=== PATIENT | female | born 1950 | race Caucasian/White ===

== ENCOUNTER 2021-11-28 03:31 | Emergency (ER) | payer MEDICARE, OTHER, SELFPAY ==
[2021-11-28 03:41] VITALS: BP 159/100; PULSE 88; RESP 18; TEMP 36.1; O2SAT 98; BMI 26.9
[2021-11-28] MEDS: tetracaine 0.5% Op Soln 4 mL Btl 1 DROP EYE-LEFT (03:58)
[2021-11-28] MEDS: fluorescein 1 mg Strip EYE-LEFT (03:58)
[2021-11-28] MEDS: valACYclovir 1,000 mg Tablet 1000 MG PO (05:10)
[2021-11-28] MEDS: polymyxin-trimethoprim Op Soln 10 mL Btl 1 DROP EYE-LEFT (05:10)
[2021-11-28] MEDS: ketorolac 0.5% Op 5 mL Btl 1 DROP EYE-LEFT (05:10)
--- NOTE | 2021-11-28 06:17 | W.ED.EYEPROB ---
HPI - Eye Problem General: Chief complaint: Eye Problems Stated complaint: Lt eye Pain Time Seen by Provider: 11/28/21 03:43 History of Present Illness: HPI Narrative: 71-year-old female presents to the emergency department with a painful rash on her forehead involving her left eye that developed the day prior. She notes that the rash contained bubbles that seems to bust and dry up today. No symptoms before yesterday. She has pain to the eye itself. She has pain with eye movement. She does not have any vision change to that eye she says. chief complaint: eye pain Onset (ago): hour(s) Onset description: sudden and gradual Location: left eye Eye Symptoms: burning, redness and pain Place: home Mechanism: none Severity: moderate If Pain, Quality: burning and aching Associated symptoms: Denies cough, fever(s), headache(s), nausea, short of breath or vomiting Treatments Prior to Arrival: none Review of Systems Const: Denies: fever(s) GI: Denies: nausea or vomiting Neuro: Denies: headache(s) Physical Exam Const: EXAM LIMITATIONS: no altered mental status and no behavioral limitations GENERAL APPEARANCE: cooperative ORIENTATION/CONSCIOUSNESS: Yes awake HENMT: COMMON NORMALS: normocephalic, external ears normal and Normal external nose present HEAD & SCALP: normocephalic NOSE: Normal external nose present EXTERNAL EAR: Yes external ears normal MOUTH: Normal oral and palatal mucosa present Eye: COMMON NORMALS: Equal, round and reactive pupils present GENERAL EYE: normal light reflex SCLERA: scleral abnormal CORNEA: Yes fluorescein used PUPIL: Yes Equal, round and reactive pupils present DIRECT OPHTHALMOSCOPY: Yes normal light reflex Chest: COMMONS NORMALS: normal inspection of the chest Skin: NARRATIVE SKIN EXAM: Exam of the face reveals a vesicular, dry, rash to the left forehead. Course Vital Signs: Vital signs: Vital Signs Temperature 96.9 F L 11/28/21 03:41 Pulse Rate 88 11/28/21 03:41 Respiratory Rate 18 11/28/21 03:41 Blood Pressure 159/100 11/28/21 03:41 Pulse Oximetry 98 11/28/21 03:41 MDM - Eye Problem MDM Narrative: Medical decision making narrative: Examined patient after tetracaine with fluorescein. I do not see corneal dendritic lesions. There is mild conjunctival irritation, with no deep lesions. Her vision is intact at this point, and normal for her. We will place her on antivirals for zoster. Ketorolac drops as well as antibiotic drops, and very close outpatient ophthalmology follow-up Discharge Plan Discharge Patient Disposition: Home Clinical Impression: Herpes zoster ophthalmicus of left eye Condition: Stable Prescriptions: New valacyclovir 1 gram tablet 1,000 mg PO Q8H 7 Days Qty: 21 RF: 0 carbamazepine 200 mg tablet 200 mg PO Q12H Qty: 14 RF: 0 hydrocodone-acetaminophen 5-325 mg tablet 1 tab PO Q8H PRN (Reason: pain) Qty: 7 RF: 0 Discharge Orders: Discharge ED (Routine); Ordered 11/28/21 Ordered By: Ralph Torres Referrals: Damion Borjas MD [Physician] - 1-3 days Francesco Parr MD [Primary Care Provider] - Patient Instructions: Opioid Safety Activity Restrictions/Additional Instructions: Use the drops you were given in the ER to your left eye every 6 hours. Other medications as directed. Use the hydrocodone as needed for breakthrough pain. Return immediately for worsening vision changes to the left eye. Otherwise call the ophthalmology clinic listed above Tuesday morning for an appointment. Let them know you were seen here, and have shingles in the distribution of your eye. Coding Level of Care Code ED Food And Drug Inspector for Destiny Rascon
--- NOTE | 2021-11-28 08:36 | PC.NURSE ---
called in polytrim gtts to [facility] as the patient was not given the gtts upon discharge
== END 2021-11-28 05:13 | disposition home or self-care (01) ==
PROVIDERS: Emergency Provider Emergency Medicine; PCP Family Medicine
DX: B02.30 Zoster ocular disease, unspecified (principal)
CPT/HCPCS: 99283

== ENCOUNTER 2022-05-11 13:25 | Outpatient (CLI) | payer MEDICARE, OTHER, SELFPAY ==
--- NOTE | 2022-05-11 13:29 | CT_ITS ---
WS: [id number] CT NECK TECHNIQUE: Contrast-enhanced CT of the neck with coronal and sagittal reformatted images. CLINICAL INFORMATION: LEFT ANTERIOR CERVICAL LYMPHADENOPATHY COMPARISON: None. DLP: 340.[address] scans at [facility] use at least one of these dose optimization techniques: automated e xposure control; mA and/or kV adjustment per patient size (includes targeted exams where dose is matc hed to clinical indication); or iterative reconstruction. FINDINGS: Chronic bilateral chronic calcifications. Parotid nodule involving the inferior parotid gland with ca lcifications and surrounding induration in the area of palpable concern. Thickening of the overlying platysma. Parotid lesion measures approximately 11 x 13 mm. Recommend ENT consultation for resection. Differential considerations include benign and malignant parotid neoplasms. Normal submandibular glands. Normal posterior nasopharynx. Normal parapharyngeal fat. Normal vallecul a and piriform sinuses. No evidence of supraglottic or glottic mass. Subglottic airway is normal. [place] air cells well aerated. Mild spondylitic changes cervical spine. Carotid bulb calcification. CT/CT neck w con* [id number] IMPRESSION: 1. Parotid lesion involving the inferior LEFT parotid in the area of palpable concern with calcifications. Surrounding induration with thickening of the crystal cent platysma. Recommend ENT consultation for consideration of resection. Consi derations include benign and malignant parotid neoplasms. 2. Punctate calcifications both parotid glands. 3. Submandibular glands are normal. 4. No cervical lymphadenopathy.
[2022-05-11 14:14] LABS: Blood Urea Nitrogen 12 mg/dL (8-23)
[2022-05-11] MEDS: iohexol 350 mg/mL 100 mL Btl IV (14:32)
== END 2022-05-11 13:26 | disposition home or self-care (01) ==
PROVIDERS: PCP Family Medicine; Visit Provider Family Medicine
DX: R59.0 Localized enlarged lymph nodes (principal)
CPT/HCPCS: 70491; 82565; 84520

== ENCOUNTER → 2022-06-16 10:32 | Outpatient (BNVA) | payer MEDICARE, OTHER, SELFPAY | PROVIDERS: PCP Family Medicine; Visit Provider Family Medicine | DX: I50.9 Heart failure, unspecified (principal); I48.91 Unspecified atrial fibrillation | CPT/HCPCS: 80053; 83880; 85025 ==

== ENCOUNTER → 2022-06-24 14:13 | Outpatient (BNVA) | payer MEDICARE, OTHER, SELFPAY | PROVIDERS: PCP Family Medicine; Visit Provider Family Medicine | DX: I48.91 Unspecified atrial fibrillation (principal); I50.9 Heart failure, unspecified; R06.00 Dyspnea, unspecified; R07.9 Chest pain, unspecified | CPT/HCPCS: 80053; 83880; 85025; 85610 ==

== ENCOUNTER 2022-07-04 18:08 | Inpatient (IN) | payer MEDICARE, OTHER, SELFPAY ==
--- NOTE | 2022-07-04 18:09 | XRR_ITS ---
PROCEDURE INFORMATION: Exam: XR Chest Exam date and time: 07/04/2022 6:19 PM Age: 71 years old Clinical indication: Dyspnea; Patient HX: Sweating, dizzy, ; additional info: Hypotension TECHNIQUE: Imaging protocol: Radiologic exam of the chest. Views: 1 view. COMPARISON: CR Chest 2 views* [id number] 12/18/2018 3:57 PM FINDINGS: Lungs: Unremarkable. No consolidation. Pleural spaces: Unremarkable. No pleural effusion. No pneumothorax. Heart/Mediastinum: Cardiomegaly. Bones/joints: Unremarkable. XR/XR chest 1V portable [id number] IMPRESSION: Cardiomegaly, lungs are clear.
--- NOTE | 2022-07-04 18:19 | ECG_ITS ---
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 Measurements Intervals [place] Rate: 122 P: AL: QRS: 6 QRSD: 93 T: 113 QT: 341 QTc: 487 Interpretive Statements ATRIAL FIBRILLATION WITH RAPID VENTRICULAR RESPONSE ST DEVIATION AND MODERATE T-WAVE ABNORMALITY, CONSIDER LATERAL ISCHEMIA [-0.1+ mV T-WAVE IN I/aVL/V5/V6] No previous ECG available for comparison Electronically Signed On 07-05-2022 7:24:41 CDT by Scotty Mario M.D. [id number]
[2022-07-04 18:21] VITALS: BP 91/54; PULSE 122; RESP 18; O2SAT 92
[2022-07-04 18:30] LABS: Basophils # 0.1 10^3/uL (0.0-0.1); Basophils % 0.5 %; Eosinophils # 0.1 10^3/uL (0.0-0.8); Eosinophils % 0.5 %; Hematocrit 52.5 % (37.0-47.0); Lymphocytes # 1.3 10^3/uL (0.8-4.8); Lymphocytes % 8.3 %; Mean Corpuscular HGB Conc 32.4 g/dL (30.0-36.0); Mean Corpuscular Hemoglobin 30.9 pg (28.0-34.0); Mean Corpuscular Volume 95.5 fl (81-99); Mean Platelet Volume 11.2 fL (7.4-10.4); Monocytes # 1.3 10^3/uL (0.2-0.9); Monocytes % 8.2 %; Neutrophils # 12.49 10^3/uL (1.8-7.7); Neutrophils % 81.2 %; Nucleated Red Blood Cells % 0 %; Platelet Count 257 10^3/cmm (130-400); Red Cell Distribution Width 14.5 % (12.1-15.1); White Blood Count 15.4 10^3/uL (4.0-10.0)
[2022-07-04] MEDS: sodium chloride 0.9% 500 ML 999 ML IV ×3 (18:40→20:13)
[2022-07-04] MEDS: ondansetron 2 mg/ML SDV 2 mL 4 MG IVP ×2 (18:40→19:55)
[2022-07-04 18:46] VITALS: BP 110/87; PULSE 96; RESP 21; O2SAT 98
--- NOTE | 2022-07-04 19:15 | CTR_ITS ---
PROCEDURE INFORMATION: Exam: CT Abdomen And Pelvis With Contrast Exam date and time: 07/04/2022 7:42 PM Age: 71 years old Clinical indication: Pain and abnormal findings; Abnormal lab test; Nausea and vomiting; Abdominal pain; Generalized; Prior surgery; Surgery type: Hernia repair. Csection; Patient HX: Abd pain with n/v/d and elevated wbc. ; Additional info: Abd pain, diarrhea, leukocytosis TECHNIQUE: Imaging protocol: Computed tomography of the abdomen and pelvis with contrast. Radiation optimization: All CT scans at this facility use at least one of these dose optimization techniques: automated exposure control; mA and/or kV adjustment per patient size (includes targeted exams where dose is matched to clinical indication); or iterative reconstruction. Contrast material: OMNI 350; Contrast volume: 80 ml; Contrast route: INTRAVENOUS (IV); COMPARISON: US Abdomen* [id number] 12/07/2016 7:06 AM RADIATION DOSE METRICS: Total DLP (mGy-cm): 404.06 FINDINGS: Lungs: Emphysematous changes. Heart: Cardiomegaly. Coronary artery atherosclerotic calcifications. Diaphragm: Small hiatal hernia. Liver: Normal. No mass. Gallbladder and bile ducts: Normal. No calcified stones. No ductal dilation. Pancreas: Normal. No ductal dilation. Spleen: Normal. No splenomegaly. Adrenal glands: Normal. No mass. Kidneys and ureters: Normal. No hydronephrosis. Stomach and bowel: Prominent fluid throughout the small bowel and colon with mucosal enhancement suggestive of an enterocolitis. Appendix: No evidence of appendicitis. Intraperitoneal space: Unremarkable. No free air. No significant fluid collection. Vasculature: Large amount of nearly occlusive atherosclerotic calcified plaque seen in the distal abdominal aorta with contrast seen distally. Lymph nodes: Unremarkable. No enlarged lymph nodes. Urinary bladder: Urinary bladder wall thickening may be due to nondistention, a cystitis may also be a consideration depending on the clinical scenario. Reproductive: 3 cm apparent cystic fibroid in the uterine fundus. Bones/joints: Unremarkable. No acute fracture. Soft tissues: Unremarkable. Other findings: Small amount nonspecific fluid in the pelvis. CT/CT abdomen pelvis w con* [id number] IMPRESSION: 1. Prominent fluid throughout the small bowel and colon with mucosal enhancement suggestive of an enterocolitis. 2. 3 cm apparent cystic fibroid in the uterine fundus. 3. Small amount nonspecific fluid in the pelvis. 4. Cardiomegaly. 5. Emphysematous changes. 6. Coronary artery atherosclerotic calcifications. 7. Small hiatal hernia. 8. Urinary bladder wall thickening may be due to nondistention, a cystitis may also be a consideration depending on the clinical scenario. 9. Large amount of nearly occlusive atherosclerotic calcified plaque seen in the distal abdominal aorta with contrast seen distally.
--- NOTE | 2022-07-04 19:27 | W.ED.SYNCOPE ---
HPI - Syncope General: Stated Complaint: Near SYNCOPE; AFIB WITH RVR Time Seen by Provider: 07/04/22 18:18 Source: patient History of Present Illness: 71-year-old female with a history of atrial fibrillation. She presents with sudden onset of nausea, diaphoresis, and diarrhea. She got dizzy, and was presyncopal as well. She never passed out. She did not hit her head. Dizziness is resolved. She still complains of abdominal cramping and pain. No fever. No vomiting. She was found by EMS to have a heart rate in the 140s to 150s. She denies chest pain MD complaint: felt faint and almost passed out Onset (ago): minute(s) -: minutes(s) Prodromal symptoms: lightheaded, heart racing and nausea/vomiting Associated symptoms: Reports abdominal pain, lightheadedness, nausea and short of breath; Deny chest pain, fever(s) or headache(s) Review of Systems Const: Denies: fever(s) Eyes: Denies: change in vision or blurry vision Card: Reports: palpitations, irregular heart rhythm and lightheadedness; Denies: chest pain GI: Reports: abdominal pain, nausea and diarrhea (Significant); Denies: vomiting or hematochezia : Denies: flank pain Skin/Breast: Denies: rash Neuro: Reports: weakness in extremities (Generalized) and dizziness; Denies: headache(s) or numbness in extremities [facility] ED PFSH: Medical History Atrial fibrillation Congestive heart failure Dyspnea Physical Exam Const: COMMON NORMALS: alert GENERAL APPEARANCE: cooperative, in distress, ill appearing, frail appearing and diaphoretic HENMT: COMMON NORMALS: normocephalic and atraumatic HEAD & SCALP: normocephalic and atraumatic FACE & SINUS: normal facial exam and sinuses nontender Eye: COMMON NORMALS: Equal, round and reactive pupils present and EOMs intact bilaterally PUPIL: Yes Equal, round and reactive pupils present Neck/C-Spine: GENERAL: Yes trachea midline Chest: CHEST: Yes Symmetrical chest wall rise Resp: COMMON NORMALS: clear to auscultation bilaterally EFFORT & INSPECTION: Yes tachypneic AUSCULTATION: clear to auscultation bilaterally Cardio: RATE: tachycardic RHYTHM: abnormal rhythm irregularly irregular GI: INSPECTION: Yes normal to inspection PALPATION: Yes Tenderness to palpation present (GI) (diffuse) and Yes Guarding due to palpation present (GI) : COMMON NORMALS: Yes no CVA tenderness BLADDER/KIDNEY EXAM: Yes no CVA tenderness Back/Pelvis: COMMON NORMALS: no CVA tenderness Extremity: COMMON NORMALS: no pedal edema Neuro: YEISON COMA SCALE: document GCS findings Yeison coma scale eye opening: Spontaneous Yeison coma scale verbal response: Orientated Yeison coma scale motor response: Obey commands [place] coma scale total score: 15 SENSORIUM/ORIENTATION: Yes alert CRANIAL NERVES: Yes CN normal except as noted SPEECH: speech normal Skin: COMMON NORMALS: no rashes or lesions noted GENERAL SKIN EXAM: no rashes or lesions noted Course Vital Signs: Vital signs: Vital Signs Pulse Rate 104 H 07/04/22 21:00 Respiratory Rate 22 H 07/04/22 21:00 Blood Pressure 131/89 07/04/22 21:00 Pulse Oximetry 94 07/04/22 21:00 Oxygen Delivery Me thod 07/04/22 21:00 Oxygen Flow Rate 3 07/04/22 21:00 MDM - Syncope Medical Decision Making 71-year-old female with a history of atrial fibrillation. She is presenting hypotensive, tachycardic, and appearing unwell. She has a history of CHF. Heart rates initially were in the 140s, blood pressure was near 70 systolic. This improved quickly. She was given 500 cc of fluid, followed by another 2 500 cc boluses for a total of 1.5 L. Her white blood cell count is 15. Hemoglobin 17. Potassium was 3.3. Bicarbonate was down to 15. Chest x-ray is negative for infiltrate or failure. Abdominal CT shows prominent fluid in the small bowel consistent with enterocolitis, likely the cause of her pain, diarrhea, and volume loss. Heart rate decreased to around 100 following 1.5 L bolus. Again full sepsis bolus was not given due to history of heart failure. She has a lactate of 3.3. Blood pressure improved to currently 120/83. She will be admitted. Hospitalist is aware of Lab Data : 07/04/22 18:20 07/04/22 19:05 Radiology Impressions Chest X-Ray 07/04/22 18:09 IMPRESSION: Cardiomegaly, lungs are clear. Abdomen/Pelvis CT 07/04/22 19:15 IMPRESSION: 1. Prominent fluid throughout the small bowel and colon with mucosal enhancement suggestive of an enterocolitis. 2. 3 cm apparent cystic fibroid in the uterine fundus. 3. Small amount nonspecific fluid in the pelvis. 4. Cardiomegaly. 5. Emphysematous changes. 6. Coronary artery atherosclerotic calcifications. 7. Small hiatal hernia. 8. Urinary bladder wall thickening may be due to nondistention, a cystitis may also be a consideration depending on the clinical scenario. 9. Large amount of nearly occlusive atherosclerotic calcified plaque seen in the distal abdominal aorta with contrast seen distally. Laboratory Results WBC 15.4 10^3/uL (4.0-10.0) H 07/04/22 18:20 RBC 5.50 10^6/uL (4.1-5.3) H 07/04/22 18:20 Hgb 17.0 g/dL (11.5-15.3) H 07/04/22 18:20 Hct 52.5 % (37.0-47.0) H 07/04/22 18:20 MCV 95.5 fl (81-99) 07/04/22 18:20 MCH 30.9 pg (28.0-34.0) 07/04/22 18:20 MCHC 32.4 g/dL (30.0-36.0) 07/04/22 18:20 RDW 14.5 % (12.1-15.1) 07/04/22 18:20 Plt Count 257 10^3/cmm (130-400) 07/04/22 18:20 MPV 11.2 fL (7.4-10.4) H 07/04/22 18:20 Neut % (Auto) 81.2 % 07/04/22 18:20 Lymph % (Auto) 8.3 % 07/04/22 18:20 [place] % (Auto) 8.2 % 07/04/22 18:20 Eos % (Auto) 0.5 % 07/04/22 18:20 Baso % (Auto) 0.5 % 07/04/22 18:20 Neut # (Auto) 12.49 10^3/uL (1.8-7.7) H 07/04/22 18:20 Lymph # (Auto) 1.3 10^3/uL (0.8-4.8) 07/04/22 18:20 [place]ill # (Auto) 1.3 10^3/uL (0.2-0.9) H 07/04/22 18:20 Eos # (Auto) 0.1 10^3/uL (0.0-0.8) 07/04/22 18:20 Baso # (Auto) 0.1 10^3/uL (0.0-0.1) 07/04/22 18:20 Nucleated RBC % (auto) 0 % 07/04/22 18:20 Nucleated RBCs # 0.0 /100WBC 07/04/22 18:20 PT 29.60 SECONDS (12.1-14.9) H 07/04/22 19:05 INR 2.78 (0.8-1.2) H 07/04/22 19:05 Sodium 137 mmol/L (136-145) 07/04/22 19:05 Potassium 3.3 mmol/L (3.5-5.1) L 07/04/22 19:05 Chloride 111 mmol/L (98-107) H 07/04/22 19:05 Carbon Dioxide 15 mmol/L (22-29) L 07/04/22 19:05 Anion Gap 14.3 (5-19) 07/04/22 19:05 BUN 14 mg/dL (8-23) 07/04/22 19:05 Creatinine 1.0 mg/dL (0.5-0.9) H 07/04/22 19:05 GFR Calculation Not Reportable 07/04/22 19:05 Glucose 184 mg/dL (65-115) H 07/04/22 19:05 Calculated Osmolality 289 mOsm/kg (285-295) 07/04/22 19:05 Lactic Acid 3.2 mmol/L (0.5-2.2) H 07/04/22 19:05 Calcium 6.1 mg/dL (8.5-10.5) L 07/04/22 19:05 Magnesium 1.2 mg/dL (1.7-2.3) L 07/04/22 19:05 Total Bilirubin 0.5 mg/dL (0.15-1.2) 07/04/22 19:05 AST 15 U/L (0-32) 07/04/22 19:05 ALT 11 U/L (0-33) 07/04/22 19:05 Alkaline Phosphatase 63 U/L (35-105) 07/04/22 19:05 Troponin T Baseline 11 ng/L (0-10) H 07/04/22 19:05 Troponin T 120 Minute 12.19 ng/L (0-10) H 07/04/22 20:28 Delta Troponin T 1.19 ABS# (0-10) 07/04/22 20:28 NT-Pro-B Natriuret Pep 5023 pg/mL (0-125) H 07/04/22 19:05 Total Protein 4.5 g/dL (6.6-8.7) L 07/04/22 19:05 Albumin 2.5 g/dL (3.5-5.2) L 07/04/22 19:05 Globulin 2.0 g/dL (1.3-4.6) 07/04/22 19:05 Lipase 29 U/L (13-60) 07/04/22 19:05 Urine Color Yellow (Yellow) 07/04/22 20:06 Urine Appearance Cloudy (CLEAR) 07/04/22 20:06 Urine pH 5 (5-7) 07/04/22 20:06 Ur Specific [place] 1.005 (1.005-1.030) 07/04/22 20:06 Urine Protein 2+ (Negative) H 07/04/22 20:06 Urine Glucose (UA) Trace (Normal) H 07/04/22 20:06 Urine Ketones Negative (Negative) 07/04/22 20:06 Urine Blood 2+ (Negative) H 07/04/22 20:06 Urine Nitrate Negative (Negative) 07/04/22 20:06 Urine Bilirubin Neg (Negative) 07/04/22 20:06 Urine Urobilinogen Norm mg/dL (Negative) 07/04/22 20:06 Ur Leukocyte Esterase 1+ (Negative) H 07/04/22 20:06 Urine RBC 0-4 /hpf (0-2) H 07/04/22 20:06 Urine WBC 15-25 /hpf (0-5) H 07/04/22 20:06 Ur Squamous Epith Cells 0-4 /hpf (0-5) H 07/04/22 20:06 Amorphous Sediment Not Reportable 07/04/22 20:06 Urine Bacteria 1+ /hpf (NONE) H 07/04/22 20:06 Hyaline Casts 5-10 /lpf H 07/04/22 20:06 Urine Mucus Trace /hpf 07/04/22 20:06 Urine Yeast Trace /hpf 07/04/22 20:06 Coronavirus 229E (PCR) Not detected (NOT DETECT) 07/04/22 19:31 SARS-CoV-2 (PCR) Not detected (NOT DETECT) 07/04/22 19:31 Discharge Plan Discharge Patient Disposition: Admitted As Inpatient Clinical Impression: Atrial fibrillation with RVR, Acute dehydration, Enteritis Condition: Serious Prescriptions: No Action furosemide 40 mg tablet 40 mg PO Q12H benazepril 10 mg tablet 10 mg PO BID atorvastatin 20 mg tablet 20 mg PO DAILY potassium chloride 10 mEq tablet extended release 10 meq PO BID warfarin 2 mg tablet 2 mg PO BID metoprolol succinate 100 mg tablet extended release 24 hr 100 mg PO BID Qty: 90 3RF Referrals: Francesco Parr MD [Primary Care Provider] - Coding Level of Care Code ED Social Service Liaison for Destiny Rascon
[2022-07-04 19:35] LABS: INR 2.78 (0.8-1.2)
[2022-07-04 19:37] VITALS: BP 128/65; PULSE 102; RESP 15; O2SAT 97
[2022-07-04 19:44] LABS: Troponin(5th) Baseline 11 ng/L (0-10)
[2022-07-04] MEDS: iohexol 350 mg/mL 100 mL Btl 80 ML IV (19:46)
[2022-07-04 19:54] LABS: Lactic Sepsis W/Reflex 3.2 mmol/L (0.5-2.2)
[2022-07-04 20:00] VITALS: BP 139/78; PULSE 102; RESP 18; O2SAT 98
[2022-07-04 20:01] LABS: Alanine Aminotransferase 11 U/L (0-33); Albumin Level 2.5 g/dL (3.5-5.2); Alkaline Phosphatase 63 U/L (35-105); Anion Gap 14.3 (5-19); Aspartate Amino Transferase 15 U/L (0-32); Blood Urea Nitrogen 14 mg/dL (8-23); Calcium 6.1 mg/dL (8.5-10.5); Carbon Dioxide 15 mmol/L (22-29); Chloride 111 mmol/L (98-107); Glucose 184 mg/dL (65-115); Lipase 29 U/L (13-60); Magnesium 1.2 mg/dL (1.7-2.3); NT Pro B Type Natriuretic Pept 5023 pg/mL (0-125); Osmolality Calculated 289 mOsm/kg (285-295); Potassium 3.3 mmol/L (3.5-5.1); Sodium 137 mmol/L (136-145); Total Bilirubin 0.5 mg/dL (0.15-1.2); Total Protein 4.5 g/dL (6.6-8.7)
--- NOTE | 2022-07-04 20:10 | ECG_ITS ---
[facility] Test Date: 2022-07-04 Pat Name: Christiane Winkler Department: Room: Gender: Female Enterostomal Therapy Nurse: : 1950 Requested By: Gissel Bhatia Order Number: [id number] Benton MD: Scotty Mario M.D. Measurements Intervals [place] Rate: 119 P: [place]: QRS: 14 QRSD: 99 T: -43 QT: 356 QTc: 502 Interpretive Statements ATRIAL FIBRILLATION WITH RAPID VENTRICULAR RESPONSE NONSPECIFIC ST & T-WAVE ABNORMALITY ABNORMAL RHYTHM ECG Compared to ECG 07/04/2022 18:19:41 Possible ischemia no longer present T-wave abnormality still present Electronically Signed On 07-05-2022 7:27:50 CDT by Scotty Mario M.D. [id number]
[2022-07-04] MEDS: metroNIDAZOLE IV 500 MG/100 ML PREMIX 100 MG IV (20:30)
[2022-07-04 20:59] LABS: Reflex Lactate Order REFLEX LACTIC ORDERD
[2022-07-04 21:00] VITALS: BP 131/89; PULSE 104; RESP 22; O2SAT 94
[2022-07-04 21:00] LABS: Add Urine Microscopic? YES; Bilirubin Urine Neg (Negative); Blood Urine 2+ (Negative); Glucose Urine UA Trace (Normal); Ketones Urine Negative (Negative); Leukocyte Esterase Urine 1+ (Negative); Nitrate Urine Negative (Negative); Protein Urine 2+ (Negative); Specific Gravity, Urine 1.005 (1.005-1.030); Urine Appearance Cloudy (CLEAR); Urine Color Yellow (Yellow); Urobilinogen Urine Norm (Negative); pH Urine 5 (5-7)
[2022-07-04 21:01] LABS: Bacteria Urine 1+ /hpf; Mucus Urine TRACE /hpf; RBC Urine 0-4 /hpf (0-2); Squamous Epithelial Cell Urine 0-4 /hpf (0-5); WBC Urine 15-25 /hpf (0-5)
[2022-07-04 21:02] LABS: Add Urine Culture? Yes
[2022-07-04 21:03] LABS: Troponin 5 2HR 12.19 ng/L (0-10)
[2022-07-04 21:06] LABS: Troponin 5 2HR Delta 1.19 ABS# (0-10)
[2022-07-04] MEDS: cefTRIAXone 1,000 MG in sodium chloride 0.9% (plus) 50 ML 100 MG IV (21:30)
[2022-07-04 21:33] LABS: Adenovirus Not Detected (NOT DETECT); Chlamydia Pneumoniae Not Detected (NOT DETECT); Coronavirus 229E,HKU1,NL63,OC4 Not Detected (NOT DETECT); Human Metapneumovirus Not Detected (NOT DETECT); Human Rhinovirus/Enterovirus Not Detected (NOT DETECT); Influenza A Not Detected (NOT DETECT); Influenza A H1 Not Detected (NOT DETECT); Influenza A H1-2009 Not Detected (NOT DETECT); Influenza A H3 Not Detected (NOT DETECT); Influenza B Not Detected (NOT DETECT); Mycoplasma Pneumoniae Not Detected (NOT DETECT); Parainfluenza Virus Type 1 Not Detected (NOT DETECT); Parainfluenza Virus Type 2 Not Detected (NOT DETECT); Parainfluenza Virus Type 3 Not Detected (NOT DETECT); Parainfluenza Virus Type 4 Not Detected (NOT DETECT); Respiratory Syncytial Virus A Not Detected (NOT DETECT); Respiratory Syncytial Virus B Not Detected (NOT DETECT); SARS-COV-2 Not Detected (NOT DETECT)
[2022-07-04 22:31] LABS: Lactic Acid level (Lactate) 1.8 mmol/L (0.5-2.2)
--- NOTE | 2022-07-04 22:33 | USR_ITS ---
PROCEDURE INFORMATION: Exam: US Duplex Scan of Aorta, Inferior Vena Cava, Iliac Vasculature, or Bypass Grafts, Complete Exam date and time: 07/04/2022 11:00 PM Age: 71 years old Clinical indication: Abnormal findings; Abnormal imaging test; Exam and body structure: CT / abdomen; Additional info: Plaque, decreased flow? TECHNIQUE: Imaging protocol: Real-time duplex ultrasound scan of the Aorta, IVC, iliac vasculature, or bypass grafts in the abdomen with color Doppler flow and spectral waveform analysis with image documentation. Complete exam. COMPARISON: US gall bladder [id number] 07/04/2022 10:51 PM FINDINGS: Aorta: Proximal abdominal aorta not visualized . Atherosclerotic plaque in the mid to distal abdominal aorta with color blood flow present. Plaque limits evaluation of velocity measurements. US/CV duplex aorta [id number] IMPRESSION: 1. Proximal abdominal aorta not visualized . 2. Atherosclerotic plaque in the mid to distal abdominal aorta with color blood flow present. Plaque limits evaluation of velocity measurements.
--- NOTE | 2022-07-04 22:33 | USR_ITS ---
PROCEDURE INFORMATION: Exam: US Abdomen, Limited; Right Upper Quadrant Exam date and time: 07/04/2022 10:51 PM Age: 71 years old Clinical indication: Abdominal pain TECHNIQUE: Imaging protocol: Real time ultrasound of the abdomen with image documentation. Limited exam focused on the right upper quadrant. COMPARISON: CT abdomen pelvis w con* [id number] 07/04/2022 7:42 PM FINDINGS: Liver: Normal. No masses. Gallbladder: Gallbladder wall is mildly prominent at 4.1 mm without cholelithiasis or findings to suggest cholecystitis by ultrasound alone. If clinically indicated a nuclear medicine HIDA scan could further evaluate the gallbladder if concern for cholecystitis remains. Biliary ducts: Normal. No stones. No dilation. Pancreas: Visualized pancreas is unremarkable. Right kidney: Normal. No mass. No hydronephrosis. US/US gall bladder [id number] IMPRESSION: Gallbladder wall is mildly prominent at 4.1 mm without cholelithiasis or findings to suggest cholecystitis by ultrasound alone. If clinically indicated a nuclear medicine HIDA scan could further evaluate the gallbladder if concern for cholecystitis remains.
--- NOTE | 2022-07-04 22:35 | USR_ITS ---
PROCEDURE INFORMATION: Exam: US Duplex Bilateral Extracranial Arteries, Carotid Arteries Exam date and time: 07/04/2022 11:24 PM Age: 71 years old Clinical indication: Syncope and collapse TECHNIQUE: Imaging protocol: Real-time Duplex ultrasound scan of the bilateral carotid and vertebral arteries combining jacobsen scale, color Doppler and spectral waveform analysis. Bilateral exam. Exam focused on the carotid arteries. COMPARISON: CT neck w con* [id number] 05/11/2022 2:09 PM FINDINGS: Scattered areas of atherosclerotic plaque throughout the carotid arteries. Right common carotid artery: No occlusion or stenosis. Waveforms are normal. Right internal carotid artery: Right internal carotid artery peak systolic velocity of 123 cm/s consistent with nearly 50-75% stenosis. Right ICA/CCA ratio: Within normal limits. Right external carotid artery: No stenosis in the origin. Right vertebral artery: Unremarkable. Antegrade flow. Left common carotid artery: . No occlusion or stenosis. Waveforms are normal. Left internal carotid artery: Left internal carotid artery peak systolic velocity of 108 cm/s consistent with less than 50% stenosis. Left ICA/CCA ratio: Within normal limits. Left external carotid artery: No stenosis in the origin. Left vertebral artery: Unremarkable. Antegrade flow. US/CV carotid duplex BI* [id number] IMPRESSION: 1. Right internal carotid artery peak systolic velocity of 123 cm/s consistent with nearly 50-75% stenosis. 2. Left internal carotid artery peak systolic velocity of 108 cm/s consistent with less than 50% stenosis. 3. Scattered areas of atherosclerotic plaque throughout the carotid arteries. REFERENCES: SRU CRITERIA. The degree of internal carotid artery stenosis is based on criteria defined by the Society of Radiologists in Ultrasound (SRU). Normal is no stenosis. Mild is less than 50% stenosis. Moderate is 50-69% stenosis. Severe is greater than 69% stenosis to near occlusion. Near occlusion is a markedly narrowed lumen. Total occlusion is no detectable patent lumen.
--- NOTE | 2022-07-04 22:35 | USCV_ITS ---
Peterson Christiane Age: 71 Gender: F : 1950 Exam Date: 07/04/2022 23:58 Ordering Phys: Nayan Victoria MD Technologist: Jose E Florez Exam Location: [facility] [place] Indication: syncope BP: 147 / 94 HR: 100 Rhythm: Sinus Technical Quality: Poor MEASUREMENTS (Male / Female) Normal Values 2D ECHO LV Diastolic Diameter PLAX 4.7 cm 4.2 - 5.9 / 3.9 - 5.3 cm LV Systolic Diameter PLAX 4.8 cm IVS Diastolic Thickness 1.3 cm 0.6 - 1.0 / 0.6 - 0.9 cm IVS Systolic Thickness 1.1 cm LVPW Diastolic Thickness 1.9 cm 0.6 - 1.0 / 0.6 - 0.9 cm LVPW Systolic Thickness 1.9 cm LV Ejection Fraction 2D Teich 4.9 % LV Ejection Fraction MOD 2C 60.8 % LV Ejection Fraction 2C AL 60.8 % LA Diameter 5.1 cm LA Width 4.7 cm LA Height 6.4 cm RA Width 4.7 cm RA Height 5.9 cm IVC Diameter 1.6 cm M-MODE Aortic Annulus Diameter 2.3 cm LA Ao Ratio MM 1.9 MV E Point Septal Separation 1.6 cm DOPPLER AV Peak Velocity 136.8 cm/s LVOT Peak Velocity 63.3 cm/s MV Area PHT 5.0 cm squared Mitral E to A Ratio 2.5 MV E' Velocity 53.5 cm/s Mitral E to MV E' Ratio 11.3 Mitral E to LV E' Lateral Ratio 8.9 Mitral E to LV E' Septal Ratio 15.7 Right Atrial Pressure 8.0 mmHg PV Peak Velocity 69.0 cm/s FINDINGS Left Ventricle The ventricle is poorly seen. The best view is the apical 2 chamber view. There appears to be global hypokinesis to a mild degree. A rough estimate of the ejection fraction would be 40%. Grade 1 diastolic dysfunction. No obvious wall motion disturbances. Right Ventricle Poorly seen but appears to be normal in size and function. Right Atrium Normal right atrial size. Left Atrium Mildly increased left atrial size. Mitral Valve Poorly seen. At least mild mitral regurgitation. No obvious mitral stenosis. Aortic Valve The valve is not well seen. No obvious regurgitation or stenosis. Tricuspid Valve Poorly seen Pulmonic Valve Poorly seen Pericardium Normal pericardium without effusion. Aorta Normal ascending aorta dimension. IVC Not well seen but the inferior vena cava appears to collapse with respiration. CONCLUSIONS The ventricle is poorly seen. The best view is the apical 2 chamber view. There appears to be global hypokinesis to a mild degree. A rough estimate of the ejection fraction would be 40%. Grade 1 diastolic dysfunction. No obvious wall motion disturbances. Mildly increased left atrial size. Poorly seen. At least mild mitral regurgitation. No obvious mitral stenosis. From the previous echo dated 01/04/2019, the wall motion disturbances noted at that time are not seen today. Additionally the severe mitral and tricuspid regurgitation seen previously are not seen on today's study. An inadequate tricuspid envelope does not allow for evaluation of pulmonary hypertension. The ejection fraction is essentially unchanged. Dr. Scotty Mario MD (Electronically Signed) Final Date: 05 July 2022 07:23 S
--- NOTE | 2022-07-04 22:37 | P.HP_ITS ---
Providers/Chief Complaint Primary Care Provider: Francesco Parr MD Chief Complaint: SYNCOPE; AFIB WITH RVR History of Present Illness Christiane Winkler is a 71 year old female with a past medical history of hypertension, atrial fibrillation on Coumadin, who presents [facility] due to a constellation of symptoms. He tells me that she has been seeing Dr. Kitchen, she has been complaining of increased shortness of breath, and some intermittent chest pain, she was seeing Dr. Kitchen, who ordered a cardiac echo and a stress test. Her dose of Lasix also reduced, today, she has been having bouts of nausea, diarrhea with diaphoresis and chills. She has been having episodes with dizziness, lightheadedness especially when getting up and walking. This afternoon, when she got off the commode, she took about 15 steps, she felt lightheaded and dizzy, she thinks she passed out as she did not remember the episode, but her tells me that she felt lightheaded, so she got to her knees, she never fell down, no head trauma, no loss of consciousness, but she was a bit difficult to arouse, no seizure-like episodes no strokelike symptoms. No recent antibiotic use, no history of food poisoning, the diarrhea has clear, no bloody or black stools. He also has been reporting intermittent abdominal pain, around the umbilicus, she recently had right inguinal hernia surgery which was thought to be very unusual given her age and that she is a female. When EMS was called out to patient's home, she was found to have A. fib with RVR with heart rates in the 140s to 150s, she is given 1.5 L bolus, since then, her heart rates have come down, to the 100s to 120s, she feels better, but is requiring 3 L, no shortness of breath, no chest pain, no abdominal pain, no fevers, still complaining some chills Review of Systems Const: Reports: chills, body aches, fatigue and malaise Card: Denies: chest pain Resp: Denies: dyspnea or non-productive cough GI: Reports: abdominal pain, nausea and diarrhea : Denies: flank pain, difficulty voiding, dysuria or urinary frequency Medications/Allergies Home Medications Medication Instructions Recorded Confirmed Last Taken Type atorvastatin 20 mg tablet 20 mg PO DAILY 06/16/22 07/04/22 07/03/22 History benazepril 10 mg tablet 10 mg PO BID 06/16/22 07/04/22 07/04/22 History furosemide 40 mg tablet 40 mg PO Q12H 06/16/22 07/04/22 07/04/22 History potassium chloride 10 mEq 10 meq PO BID 06/16/22 07/04/22 07/04/22 History tablet,extended release metoprolol succinate 100 mg 100 mg PO BID #90 tabs 06/21/22 07/04/22 07/04/22 Rx tablet,extended release 24 hr warfarin 2 mg tablet 2 mg PO BID 06/24/22 07/04/22 07/04/22 History Allergies Allergy/AdvReac Type Severity Reaction Status Date / Time Sulfa (Sulfonamide Allergy Unknown Verified 11/28/21 03:41 Antibiotics) PFSH Acute PFSH: Medical History (Updated 07/04/22 @ 22:43 by Nayan Victoria MD) Atrial fibrillation Congestive heart failure Dyspnea Surgical History (Updated 07/04/22 @ 22:42 by Nayan Victoria MD) Hx of inguinal hernia surgery Social History (Updated 07/04/22 @ 22:42 by Nayan Victoria MD) Smoking and tobacco status: never smoked Alcohol intake: never Substance/Drug Use: never Vitals/I&O/Wt Last Vital Signs Pulse 104 H 07/04/22 21:00 Resp 22 H 07/04/22 21:00 BP 131/89 07/04/22 21:00 Pulse Ox 94 07/04/22 21:00 O2 Del Method 07/04/22 21:00 O2 Flow Rate 3 07/04/22 21:00 07/04/22 07/04/22 07/04/22 06:59 14:59 22:59 Intake Total 1100 / 1100 Balance 1100 / 1100 Physical Exam Const: COMMON NORMALS: no acute distress and patient oriented x3 HENMT: COMMON NORMALS: normocephalic HEAD & SCALP: normocephalic Eye: COMMON NORMALS: Equal, round and reactive pupils present and EOMs intact bilaterally Neck/C-Spine: COMMON NORMALS: no JVD Resp: COMMON NORMALS: normal respiratory effort, No retractions, No use of accessory muscles and clear to auscultation bilaterally AUSCULTATION: clear to auscultation bilaterally Cardio: COMMON NORMALS: no JVD, regular rate, regular rhythm, S1 normal heart sound present and S2 normal heart sound present RATE: tachycardic RHYTHM: abnormal rhythm irregularly irregular HEART SOUNDS: S1 normal heart sound present and S2 normal heart sound present GI: OTHER: Abdomen soft, slightly distended, has right upper quadrant tenderness to palpation, no umbilical tenderness, no guarding, no rebound, no rigidity, no hepatosplenomegaly, good bowel sounds Extremity: COMMON NORMALS: capillary refill normal, no clubbing, cyanosis or edema, no calf tenderness and no pedal edema Neuro: COMMON NORMALS: patient oriented x3 Psych: COMMON NORMALS: mental status grossly normal Data : 07/04/22 18:20 07/04/22 19:05 A&P Assessment and plan (1) Atrial fibrillation with RVR: Status: Acute (2) Acute dehydration: Status: Acute (3) Enteritis: Status: Acute (4) Chest pain: Status: Acute (5) Dyspnea: Status: Acute (6) UTI (urinary tract infection): Status: Acute Plan A. fib with RVR -Likely secondary to dehydration -Heart rates have improved with IV hydration, no concerns with fluid overload as she is requiring 3 L -Continue home metoprolol 100 twice daily -Continue Coumadin -Full code Dehydration, diarrhea, enterocolitis -Continue Cipro, Flagyl -Hold off on continue IV fluid given concerns for CAD and CHF -Continue to monitor, stool studies UTI, Cipro Right upper quadrant tenderness to palpation, right upper quadrant ultrasound Complaints of chest pain, none currently, serial EKGs, serial troponins, telemetry monitoring Complaints of dyspnea, none currently, but has elevated BNP, cardiac echo, 1 d ose of Lasix, monitor for fluid overload ?Large amount of nearly occlusive atherosclerotic calcified plaque seen in the distal abdominal aorta with contrast seen distally. -She at one point did have umbilical pain earlier on, but none currently, -Not sure how this is playing a role, will do abdominal ultrasound Attestations Medical Necessity Statement*: Patient requires hospitalization, inpatient, greater than 2 midnights, for A. fib with RVR, acute dehydration, enteritis, chest pain, dyspnea, UTI Coding Level of Care Code Acute Director Biostatistics for [facility] Diagnoses Atrial fibrillation with RVR I48.91 Acute dehydration E86.0 Enteritis K52.9 Chest pain R07.9 Dyspnea R06.00 UTI (urinary tract infection) N39.0
[2022-07-04 23:00] VITALS: BP 133/90; PULSE 104; RESP 22; O2SAT 98
[2022-07-04 23:00] LABS: Procalcitonin 0.16 ng/mL (0-0.5)
[2022-07-05] VITALS (231 sets, daily range): BP systolic 86–146; BP diastolic 36–105; PULSE 84–152; RESP 13–32; TEMP 36.4–36.6; O2SAT 82–98; BMI 26.1
--- NOTE | 2022-07-05 01:20 | ECG_ITS ---
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 Measurements Intervals [place] Rate: 106 P: IN: QRS: 20 QRSD: 103 T: -81 QT: 373 QTc: 496 Interpretive Statements ATRIAL FIBRILLATION WITH RAPID VENTRICULAR RESPONSE WITH ABERRANT CONDUCTION OR VENTRICULAR PREMATURE COMPLEXES Diffuse nonspecific T wave abnormalities Compared to ECG 07/04/2022 20:32:09 Ventricular premature complex(es) now present Aberrant conduction of supraventricular beat(s) now present T-wave abnormality still present Electronically Signed On 07-05-2022 7:29:12 CDT by Scotty Mario M.D. [id number]
[2022-07-05 01:55] LABS: Troponin 5 6HR 12.81 ng/L (0-10)
[2022-07-05 02:01] LABS: Troponin 5 6HR Delta 1.81 ng/L (0-12)
[2022-07-05 02:42] LABS: Estmated Average Glucose 217; Hemoglobin A1C 9.2 % (4.0-6.0)
[2022-07-05 02:46] LABS: Thyroid Stimulating Hormone 1.24 uIU/mL (0.27-4.20)
[2022-07-05] MEDS: magnesium sulfate premix 4 GM/100 ML PREMIX IV (03:01)
[2022-07-05] MEDS: lidocaine 1% 5 ML in potassium chloride premix 100 ML 25 ML IV (03:02)
[2022-07-05 04:29] LABS: Basophils # 0.1 10^3/uL (0.0-0.1); Basophils % 0.4 %; Eosinophils % 0.2 %; Hematocrit 44.6 % (37.0-47.0); Hemoglobin 13.7 g/dL (11.5-15.3); Lymphocytes # 1.3 10^3/uL (0.8-4.8); Lymphocytes % 8.3 %; Mean Corpuscular HGB Conc 30.7 g/dL (30.0-36.0); Mean Corpuscular Hemoglobin 30.3 pg (28.0-34.0); Mean Corpuscular Volume 98.7 fl (81-99); Mean Platelet Volume 11.3 fL (7.4-10.4); Monocytes # 1.6 10^3/uL (0.2-0.9); Monocytes % 10.3 %; Neutrophils # 12.07 10^3/uL (1.8-7.7); Neutrophils % 79.8 %; Nucleated Red Blood Cells % 0 %; Platelet Count 218 10^3/cmm (130-400); Red Blood Count 4.52 10^6/uL (4.1-5.3); Red Cell Distribution Width 13.9 % (12.1-15.1); White Blood Count 15.1 10^3/uL (4.0-10.0)
[2022-07-05 04:54] LABS: Alanine Aminotransferase 11 U/L (0-33); Albumin Level 3.4 g/dL (3.5-5.2); Alkaline Phosphatase 87 U/L (35-105); Anion Gap 16.1 (5-19); Aspartate Amino Transferase 22 U/L (0-32); Blood Urea Nitrogen 18 mg/dL (8-23); Calcium 8.6 mg/dL (8.5-10.5); Carbon Dioxide 22 mmol/L (22-29); Chloride 103 mmol/L (98-107); Glucose 161 mg/dL (65-115); Magnesium 1.7 mg/dL (1.7-2.3); Osmolality Calculated 289 mOsm/kg (285-295); Phosphorus 4.3 mg/dL (2.5-4.5); Potassium 4.1 mmol/L (3.5-5.1); Sodium 137 mmol/L (136-145); Total Bilirubin 0.6 mg/dL (0.15-1.2); Total Protein 6.4 g/dL (6.6-8.7)
[2022-07-05 04:56] LABS: INR 2.16 (0.8-1.2)
[2022-07-05] MEDS: ciprofloxacin 400 MG/200 ML PREMIX 200 MG IV ×2 (05:38→14:09)
[2022-07-05] MEDS: metroNIDAZOLE IV 500 MG/100 ML PREMIX 100 MG IV ×3 (05:39→20:57)
[2022-07-05] MEDS: metoprolol succinate ER (24 HR) 100 mg Tablet PO ×3 (06:04→22:01)
[2022-07-05] MEDS: pantoprazole 40 mg SDV IVP (06:04)
[2022-07-05] MEDS: FUROsemide 10 mg/mL SDV 4mL 40 MG IVP (06:24)
[2022-07-05] MEDS: ondansetron 2 mg/ML SDV 2 mL 4 MG IVP (07:28)
[2022-07-05] MEDS: metoprolol tartrate 1 mg/1 mL SDV 5 mL 5 MG IVP ×2 (07:41→09:34)
[2022-07-05 08:24] LABS: Glucose Point of Care 179 mg/dL (70-110)
[2022-07-05] MEDS: atorvastatin 40 mg Tablet 20 MG PO (08:46)
[2022-07-05] MEDS: warfarin 2 mg Tablet 4 MG PO (08:47)
--- NOTE | 2022-07-05 10:29 | USCV_ITS ---
Christiane Winkler Age: 71 Gender: F : 1950 Exam Date: 07/05/2022 12:35 Ordering Phys: Flori Beltrán MD Technologist: Roel Bassett Exam Location: [facility] [place] Indication: leg swelling rt more than lt PROCEDURES: The venous duplex Doppler examination of both lower extremities was performed in the standard fashion. The following venous structures were evaluated: common femoral vein, profunda vein, proximal portion of the greater saphenous vein, superficial femoral vein, and the popliteal vein. In addition, the posterior tibial and peroneal trunk were evaluated. FINDINGS: Normal 2-D Doppler and augmentation and compressibility throughout the lower extremity venous structures. Additional imaging through the proximal calf veins also reveals no thrombus. Limited evaluation of the greater saphenous vein is patent with no thrombus. CONCLUSIONS No DVT bilateral lower extremities. Dr. Michelle Stuart DO (Electronically Signed) Final Date: 05 July 2022 15:41 S
--- NOTE | 2022-07-05 10:57 | PC.NURSE ---
Upon morning assessment, patient was found to be in afib with rvr, heart rate occasionally as high as 150. Pt feels dizzy and nauseous. Nurse alerted Dr sanderson and percy brower for metoprolol.
--- NOTE | 2022-07-05 10:58 | PC.NURSE ---
Per Dr sanderson orders, nurse gave the P metoprolol scheduled for 1408 at 1100.
--- NOTE | 2022-07-05 13:06 | PC.CHAP ---
Pastoral Care Encounter/Spiritual Assessment Type of Contact [] Declined product marketing manager visit [] Patient/Family/Request visit [] Outpatient visit [] Follow-up visit [] Physician referral [] Code/Alert [x] Routine visit [] Staff referral [] Actively dying [] Patient sleeping [] Family support [] [] Out of room [] Palliative care [] [] Receiving care in room [] Pre-surgical visit [] Trauma [] Long length of stay [x] ICU visit [] Other: Relational/Emotional Strength [] Patient feels connected with others/family/visitors/staff [] Distress [] Loneliness/isolation [] Abandonment Spirituality of Patient [] Person of Marian [] Attends Pentecostalism of their Marian [] Believes in Prayer [] Reads Bible or Rastafarian materials [] There are Spiritual issues to be addressed Health Advisor Interventions [x] Prayer [] Active listening [] Non-anxious presence [] Spiritual/emotional support [] Crisis/trauma care [] Spiritual counseling [] Bereavement support [] Provided bereavement packet [] Provided Bible/devotional materials [] Provided toy/stuffed animal, coloring book to patient or family member [] Provided Communion [] Anointing/[place] [] Salvation [x] Completed spiritual assessment [] Other: Impact on Illness or Injury [] Angry [] Fearful [] Anxious [] Often cries [] Exhaustion [] Unable to work [] Unable to attend pentecostal [] Unable to walk/stand [] Unable to read [] Unable to drive [] Unable to eat/drink [] Unable to sleep [] Unable to be with family [] Patient intubated [] Other: Summary Time spent with patient
--- NOTE | 2022-07-05 16:22 | PM.PN ---
Subjective Subjective: Overnight labs and H&P reviewed. Denies any episodes of diarrhea today. Had some dry heaves this morning but no vomiting. He currently ranging between 100-110 bpm. Medications: Reviewed: Yes Vitals/I&O/Wt Last Vital Signs Temp 97.7 F 07/05/22 13:00 Pulse 84 07/05/22 14:56 Resp 24 H 07/05/22 14:25 BP 111/42 07/05/22 14:25 Pulse Ox 95 07/05/22 14:25 O2 Del Method 07/05/22 09:00 O2 Flow Rate 2 07/05/22 08:00 07/05/22 07/05/22 07/05/22 06:59 14:59 22:59 Intake Total 100 / 1750 780 / 780 Output Total 100 / 100 200 / 200 Balance 0 / 1650 580 / 580 Weight last 48 hrs Weight 60.736 kg Physical Exam Narrative: General: No acute distress, AO x3 HEENT: PERRLA, pupils bilaterally equal and reactive, pallors not present Chest: Normal vesicular breath sounds, no added sounds, equal good air entry bilaterally CVS: S1-S2 regular, systolic murmur+ Abdomen: Soft, tender to palpation RLQ, no gurading or rebound tenderness, no organomegaly, bowel sounds present Neuro: No focal deficits, no facial deformity, AO x3, power 5/5 in all limbs Data : 07/05/22 03:39 07/05/22 03:39 Other Labs: Radiology Impressions Chest X-Ray 07/04/22 18:09 IMPRESSION: Cardiomegaly, lungs are clear. Abdomen/Pelvis CT 07/04/22 19:15 IMPRESSION: 1. Prominent fluid throughout the small bowel and colon with mucosal enhancement suggestive of an enterocolitis. 2. 3 cm apparent cystic fibroid in the uterine fundus. 3. Small amount nonspecific fluid in the pelvis. 4. Cardiomegaly. 5. Emphysematous changes. 6. Coronary artery atherosclerotic calcifications. 7. Small hiatal hernia. 8. Urinary bladder wall thickening may be due to nondistention, a cystitis may also be a consideration depending on the clinical scenario. 9. Large amount of nearly occlusive atherosclerotic calcified plaque seen in the distal abdominal aorta with contrast seen distally. Aorta Iliac Vascular Ultrasound 07/04/22 22:33 IMPRESSION: 1. Proximal abdominal aorta not visualized . 2. Atherosclerotic plaque in the mid to distal abdominal aorta with color blood flow present. Plaque limits evaluation of velocity measurements. Gallbladder Ultrasound 07/04/22 22:33 IMPRESSION: Gallbladder wall is mildly prominent at 4.1 mm without cholelithiasis or findings to suggest cholecystitis by ultrasound alone. If clinically indicated a nuclear medicine HIDA scan could further evaluate the gallbladder if concern for cholecystitis remains. Carotid Doppler Study 07/04/22 22:35 IMPRESSION: 1. Right internal carotid artery peak systolic velocity of 123 cm/s consistent with nearly 50-75% stenosis. 2. Left internal carotid artery peak systolic velocity of 108 cm/s consistent with less than 50% stenosis. 3. Scattered areas of atherosclerotic plaque throughout the carotid arteries. REFERENCES: SRU CRITERIA. The degree of internal carotid artery stenosis is based on criteria defined by the Society of Radiologists in Ultrasound (SRU). Normal is no stenosis. Mild is less than 50% stenosis. Moderate is 50-69% stenosis. Severe is greater than 69% stenosis to near occlusion. Near occlusion is a markedly narrowed lumen. Total occlusion is no detectable patent lumen. Echocardiogram 07/04 : CONCLUSIONS ?The ventricle is poorly seen.? The best view is the apical 2 ?chamber view.? There appears to be global hypokinesis to a mild ?degree.? A rough estimate of the ejection fraction would be 40%.? ?Grade 1 diastolic dysfunction.? No obvious wall motion ?disturbances. ?Mildly increased left atrial size. ?Poorly seen.? At least mild mitral regurgitation.? No obvious ?mitral stenosis. ?From the previous echo dated 01/04/2019, the wall motion ?disturbances noted at that time are not seen today.? ?Additionally the severe mitral and tricuspid regurgitation seen ?previously are not seen on today's study.? An inadequate ?tricuspid envelope does not allow for evaluation of pulmonary ?hypertension.? The ejection fraction is essentially unchanged. Laboratory Results WBC 15.1 10^3/uL (4.0-10.0) H 07/05/22 03:39 RBC 4.52 10^6/uL (4.1-5.3) 07/05/22 03:39 Hgb 13.7 g/dL (11.5-15.3) 07/05/22 03:39 Hct 44.6 % (37.0-47.0) 07/05/22 03:39 MCV 98.7 fl (81-99) 07/05/22 03:39 MCH 30.3 pg (28.0-34.0) 07/05/22 03:39 MCHC 30.7 g/dL (30.0-36.0) D 07/05/22 03:39 RDW 13.9 % (12.1-15.1) 07/05/22 03:39 Plt Count 218 10^3/cmm (130-400) 07/05/22 03:39 MPV 11.3 fL (7.4-10.4) H 07/05/22 03:39 Neut % (Auto) 79.8 % 07/05/22 03:39 Lymph % (Auto) 8.3 % 07/05/22 03:39 [place] % (Auto) 10.3 % 07/05/22 03:39 Eos % (Auto) 0.2 % 07/05/22 03:39 Baso % (Auto) 0.4 % 07/05/22 03:39 Neut # (Auto) 12.07 10^3/uL (1.8-7.7) H 07/05/22 03:39 Lymph # (Auto) 1.3 10^3/uL (0.8-4.8) 07/05/22 03:39 [place] # (Auto) 1.6 10^3/uL (0.2-0.9) H 07/05/22 03:39 Eos # (Auto) 0.0 10^3/uL (0.0-0.8) 07/05/22 03:39 Baso # (Auto) 0.1 10^3/uL (0.0-0.1) 07/05/22 03:39 Nucleated RBC % (auto) 0 % 07/05/22 03:39 Nucleated RBCs # 0.0 /100WBC 07/05/22 03:39 PT 24.40 SECONDS (12.1-14.9) H 07/05/22 03:39 INR 2.16 (0.8-1.2) H 07/05/22 03:39 Sodium 137 mmol/L (136-145) 07/05/22 03:39 Potassium 4.1 mmol/L (3.5-5.1) 07/05/22 03:39 Chloride 103 mmol/L (98-107) 07/05/22 03:39 Carbon Dioxide 22 mmol/L (22-29) 07/05/22 03:39 Anion Gap 16.1 (5-19) 07/05/22 03:39 BUN 18 mg/dL (8-23) 07/05/22 03:39 Creatinine 1.4 mg/dL (0.5-0.9) H 07/05/22 03:39 GFR Calculation Not Reportable 07/05/22 03:39 Glucose 161 mg/dL (65-115) H 07/05/22 03:39 POC Glucose 179 mg/dL (70-110) H 07/05/22 07:50 Estimat Average Glucose 217 07/04/22 18:20 Hemoglobin A1c 9.2 % (4.0-6.0) H 07/04/22 18:20 Calculated Osmolality 289 mOsm/kg (285-295) 07/05/22 03:39 Lactic Acid 3.2 mmol/L (0.5-2.2) H 07/04/22 19:05 Lactic Acid (Sepsis) 1.8 mmol/L (0.5-2.2) 07/04/22 22:05 Calcium 8.6 mg/dL (8.5-10.5) 07/05/22 03:39 Phosphorus 4.3 mg/dL (2.5-4.5) 07/05/22 03:39 Magnesium 1.7 mg/dL (1.7-2.3) 07/05/22 03:39 Total Bilirubin 0.6 mg/dL (0.15-1.2) 07/05/22 03:39 AST 22 U/L (0-32) 07/05/22 03:39 ALT 11 U/L (0-33) 07/05/22 03:39 Alkaline Phosphatase 87 U/L (35-105) 07/05/22 03:39 Troponin T Baseline 11 ng/L (0-10) H 07/04/22 19:05 Troponin T 120 Minute 12.19 ng/L (0-10) H 07/04/22 20:28 Delta Troponin T 1.19 ABS# (0-10) 07/04/22 20:28 Troponin T Hi Sens 6Hr 12.81 ng/L (0-10) H 07/05/22 01:05 Troponin T Hi Sens 6Hr Delta 1.81 ng/L (0-12) 07/05/22 01:05 C-Reactive Protein 3.0 mg/L (0.0-4.9) 07/04/22 19:05 NT-Pro-B Natriuret Pep 5023 pg/mL (0-125) H 07/04/22 19:05 Total Protein 6.4 g/dL (6.6-8.7) L D 07/05/22 03:39 Albumin 3.4 g/dL (3.5-5.2) L 07/05/22 03:39 Globulin 3.0 g/dL (1.3-4.6) 07/05/22 03:39 Lipase 29 U/L (13-60) 07/04/22 19:05 Procalcitonin 0.16 ng/mL (0-0.5) 07/04/22 19:05 TSH 1.24 uIU/mL (0.27-4.20) 07/04/22 20:28 Urine Color Yellow (Yellow) 07/04/22 20:06 Urine Appearance Cloudy (CLEAR) 07/04/22 20:06 Urine pH 5 (5-7) 07/04/22 20:06 Ur Specific [place] 1.005 (1.005-1.030) 07/04/22 20:06 Urine Protein 2+ (Negative) H 07/04/22 20:06 Urine Glucose (UA) Trace (Normal) H 07/04/22 20:06 Urine Ketones Negative (Negative) 07/04/22 20:06 Urine Blood 2+ (Negative) H 07/04/22 20:06 Urine Nitrate Negative (Negative) 07/04/22 20:06 Urine Bilirubin Neg (Negative) 07/04/22 20:06 Urine Urobilinogen Norm mg/dL (Negative) 07/04/22 20:06 Ur Leukocyte Esterase 1+ (Negative) H 07/04/22 20:06 Urine RBC 0-4 /hpf (0-2) H 07/04/22 20:06 Urine WBC 15-25 /hpf (0-5) H 07/04/22 20:06 Ur Squamous Epith Cells 0-4 /hpf (0-5) H 07/04/22 20:06 Amorphous Sediment Not Reportable 07/04/22 20:06 Urine Bacteria 1+ /hpf (NONE) H 07/04/22 20:06 Hyaline Casts 5-10 /lpf H 07/04/22 20:06 Urine Mucus Trace /hpf 07/04/22 20:06 Urine Yeast Trace /hpf 07/04/22 20:06 Coronavirus 229E (PCR) Not detected (NOT DETECT) 07/04/22 19:31 SARS-CoV-2 (PCR) Not detected (NOT DETECT) 07/04/22 19:31 Micro: Microbiology 07/05/22 03:39 Blood Culture - Preliminary Blood SPECIMEN COLLECTED 07/05/22 03:39 Blood Culture - Preliminary Blood SPECIMEN COLLECTED A&P Assessment and plan (1) Atrial fibrillation with RVR: Status: Acute (2) Acute dehydration: Status: Acute (3) Enteritis: Status: Acute (4) Chest pain: Status: Acute (5) Dyspnea: Status: Acute (6) UTI (urinary tract infection): Status: Acute Plan A. fib with RVR -Likely secondary to dehydration from fluid losses from diarrhea/enetrocolitis as seen on CT -Heart rates are better controlled with IV hydration -Continue home metoprolol 100 twice daily -Continue Coumadin at home dosing - Troponin series with negative delta at 2 and 6 hrs. Low probability ACS - Echocardiogram LVEF 40%, gr 1 diastolic dysfunction, she has received 40mg iv lasix this morning Dehydration, diarrhea, enterocolitis -Continue Cipro, Flagyl -Hold off on continue IV fluid given concerns for CAD and CHF -Continue to monitor, stool studies - RUQ US negative for cholecytsitis Hypomagnesemia : currently being repleted iv Attestations Medical Necessity Statement*: needs continued hospitalization for iv antibiotics, optimize rate control Coding Level of Care Code Acute Chemical Plant Manager for [facility] Fwd Diagnoses Atrial fibrillation with RVR I48.91 Acute dehydration E86.0 Enteritis K52.9 Chest pain R07.9 Dyspnea R06.00 UTI (urinary tract infection) N39.0
--- NOTE | 2022-07-05 19:22 | PC.NURSE ---
Shift summary: uneventful shift. Patient rested in bed for most of the day. Heart rate under control after receiving morning metoprolol pushes and PO. Has spent most of the day in afib with a rate varying between 85-105.
[2022-07-06] VITALS (229 sets, daily range): BP systolic 118–198; BP diastolic 61–160; PULSE 70–135; RESP 13–34; TEMP 36.6; O2SAT 89–98
[2022-07-06] MEDS: ciprofloxacin 400 MG/200 ML PREMIX 200 MG IV ×2 (03:48→15:01)
[2022-07-06] MEDS: metroNIDAZOLE IV 500 MG/100 ML PREMIX 100 MG IV ×3 (03:50→20:54)
[2022-07-06 04:12] LABS: Basophils # 0.1 10^3/uL (0.0-0.1); Basophils % 0.4 %; Eosinophils # 0.2 10^3/uL (0.0-0.8); Eosinophils % 1.5 %; Hematocrit 40.4 % (37.0-47.0); Hemoglobin 12.6 g/dL (11.5-15.3); Lymphocytes # 1.2 10^3/uL (0.8-4.8); Lymphocytes % 10.2 %; Mean Corpuscular HGB Conc 31.2 g/dL (30.0-36.0); Mean Corpuscular Hemoglobin 31.1 pg (28.0-34.0); Mean Corpuscular Volume 99.8 fl (81-99); Mean Platelet Volume 11.2 fL (7.4-10.4); Monocytes # 1.1 10^3/uL (0.2-0.9); Monocytes % 10.2 %; Neutrophils # 8.59 10^3/uL (1.8-7.7); Neutrophils % 76.6 %; Nucleated Red Blood Cells % 0 %; Platelet Count 168 10^3/cmm (130-400); Red Blood Count 4.05 10^6/uL (4.1-5.3); Red Cell Distribution Width 14.3 % (12.1-15.1); White Blood Count 11.2 10^3/uL (4.0-10.0)
[2022-07-06 04:19] LABS: INR 2.94 (0.8-1.2)
[2022-07-06 04:28] LABS: Alanine Aminotransferase 11 U/L (0-33); Albumin Level 3.5 g/dL (3.5-5.2); Alkaline Phosphatase 79 U/L (35-105); Anion Gap 14.5 (5-19); Aspartate Amino Transferase 14 U/L (0-32); Blood Urea Nitrogen 15 mg/dL (8-23); Calcium 8.6 mg/dL (8.5-10.5); Carbon Dioxide 21 mmol/L (22-29); Chloride 104 mmol/L (98-107); Globulin 2.2 g/dL (1.3-4.6); Glucose 154 mg/dL (65-115); Magnesium 2.1 mg/dL (1.7-2.3); Osmolality Calculated 284 mOsm/kg (285-295); Phosphorus 3.5 mg/dL (2.5-4.5); Potassium 4.5 mmol/L (3.5-5.1); Sodium 135 mmol/L (136-145); Total Bilirubin 0.7 mg/dL (0.15-1.2); Total Protein 5.7 g/dL (6.6-8.7)
--- NOTE | 2022-07-06 08:10 | PC.NURSE ---
Verified via telephone with Dr. Guerra, 4mg Coumadin to be given for 0900.
[2022-07-06] MEDS: pantoprazole 40 mg SDV IVP (08:21)
[2022-07-06] MEDS: atorvastatin 40 mg Tablet 20 MG PO (08:21)
[2022-07-06] MEDS: warfarin 2 mg Tablet 4 MG PO (08:21)
[2022-07-06] MEDS: FUROsemide 10 mg/mL SDV 2mL 20 MG IVP (08:22)
--- NOTE | 2022-07-06 10:25 | PC.CHAP ---
Pastoral Care Encounter/Spiritual Assessment Type of Contact [] Declined buttonhole maker visit [] Patient/Family/Request visit [] Outpatient visit [] Follow-up visit [] Physician referral [] Code/Alert [x] Routine visit [] Staff referral [] Actively dying [] Patient sleeping [x] Family support [] [] Out of room [] Palliative care [] [] Receiving care in room [] Pre-surgical visit [] Trauma [] Long length of stay [x] ICU visit [] Other: Relational/Emotional Strength [] Patient feels connected with others/family/visitors/staff [] Distress [] Loneliness/isolation [] Abandonment Spirituality of Patient [] Person of Marian [] Attends Zoroastrianism of their Marian [] Believes in Prayer [] Reads Bible or Oriental Orthodox materials [] There are Spiritual issues to be addressed Research Agricultural Engineer Interventions [x] Prayer [] Active listening [] Non-anxious presence [] Spiritual/emotional support [] Crisis/trauma care [] Spiritual counseling [] Bereavement support [] Provided bereavement packet [] Provided Bible/devotional materials [] Provided toy/stuffed animal, coloring book to patient or family member [] Provided Communion [] Anointing/[place] [] Salvation [x] Completed spiritual assessment [] Other: Impact on Illness or Injury [] Angry [] Fearful [] Anxious [] Often cries [] Exhaustion [] Unable to work [] Unable to attend mu-ism [] Unable to walk/stand [] Unable to read [] Unable to drive [] Unable to eat/drink [] Unable to sleep [] Unable to be with family [] Patient intubated [] Other: Summary PT CC prayed outside room with her knowledge Time spent with patient
--- NOTE | 2022-07-06 11:33 | PM.PN ---
Subjective Subjective: Patient was seen and examined this morning, currently still not complaining of any abdominal pain nausea vomiting, tolerating clear liquid diets, heart rate has been in upper 110s. With ambulation shoots up to 130s. Medications: Reviewed: Yes Medication Review Details: Generic Name Dose Route Start Last Admin Trade Name Freq PRN Reason Stop Dose Admin Atorvastatin Calci um 20 mg 07/05/22 09:00 07/06/22 08:21 Atorvastatin 40 Mg Tablet PO 20 mg DAILY JUVENAL Administration Furosemide 20 mg 07/06/22 08:00 07/06/22 08:22 Furosemide 10 Mg /Ml Sdv 2ml IVP 20 mg Q24H JUVENAL Administration Ciprofloxacin/Dext mickey 400 mg in 200 mls @ 200 mls/hr 07/05/22 02:30 07/06/22 08:31 Cipro IV Infused Q12H JUVENAL Infusion Protocol Metronidazole 500 mg in 100 mls @ 100 mls/hr 07/05/22 04:00 07/06/22 08:31 Flagyl Iv IV Infused Q8H JUVENAL Infusion Protocol Metoprolol Succina te 100 mg 07/05/22 23:00 07/05/22 22:01 Metoprolol Succi anson Er (24 Hr) 10 0 Mg Tablet PO 100 mg Q12H JUVENAL Administration Ondansetron HCl 4 mg 07/05/22 02:08 07/05/22 07:28 Ondansetron 2 Mg /Ml Sdv 2 Ml IVP 4 mg Q8H PRN Administration vomiting, or N/V if npo Pantoprazole Sodiu m 40 mg 07/05/22 02:08 07/06/22 08:21 Pantoprazole 40 Mg Sdv IVP 40 mg Q24H JUVENAL Administration Warfarin Sodium 4 mg 07/05/22 09:00 07/06/22 08:21 Warfarin 2 Mg Ta blet PO 4 mg DAILY JUVENAL Administration Vitals/I&O/Wt Last Vital Signs Temp 97.8 F 07/06/22 07:30 Pulse 103 H 07/06/22 10:45 Resp 29 H 07/06/22 10:45 BP 148/99 07/06/22 10:45 Pulse Ox 97 07/06/22 10:45 O2 Del Method 07/06/22 10:45 O2 Flow Rate 2 07/05/22 08:00 07/05/22 07/06/22 07/06/22 22:59 06:59 14:59 Intake Total 700 / 1480 540 / 540 Output Total 150 / 350 400 / 750 550 / 550 Balance 550 / 1130 -400 / 730 -10 / -10 Weight last 48 hrs Weight 60.736 kg Physical Exam Const: COMMON NORMALS: patient oriented x3 Resp: COMMON NORMALS: normal respiratory effort, No retractions, No use of accessory muscles and clear to auscultation bilaterally EFFORT & INSPECTION: Yes symmetric chest movement AUSCULTATION: clear to auscultation bilaterally Cardio: COMMON NORMALS: No gallops present (Cardio), No murmurs present (Cardio), No rub (Cardio) and Peripheral pulses 2+ throughout PERIPHERAL PULSES: Peripheral pulses 2+ throughout OTHER: Irregularly irregular rhythm, S1-S2 variable intensity GI: COMMON NORMALS: Normal to inspection, nondistended, normoactive bowel sounds present, Soft to palpation, non-tender, No hepatosplenomegaly present and no masses AUSCULTATION: Yes normoactive bowel sounds PALPATION: Yes Soft to palpation and Yes No hepatosplenomegaly present RECTAL EXAM: deferred Extremity: COMMON NORMALS: no clubbing, cyanosis or edema and no pedal edema Neuro: COMMON NORMALS: patient oriented x3 Data : 07/06/22 03:34 07/06/22 03:34 Micro: Microbiology 07/04/22 20:06 Urine Culture - Preliminary Urine,Clean Catch 07/05/22 03:39 Blood Culture - Preliminary Blood NEGATIVE TO DATE 07/05/22 03:39 Blood Culture - Preliminary Blood NEGATIVE TO DATE A&P Assessment and plan (1) Atrial fibrillation with RVR: Status: Acute (2) Acute dehydration: Status: Acute (3) Enteritis: Status: Acute (4) Chest pain: Status: Acute (5) Dyspnea: Status: Acute (6) UTI (urinary tract infection): Status: Acute Plan A. fib with RVR -Likely secondary to dehydration from fluid losses from diarrhea/enetrocolitis as seen on CT -Heart rates are better controlled with IV hydration -Continue home metoprolol 100 twice daily -Continue Coumadin at home dosing - Troponin series with negative delta at 2 and 6 hrs. Low probability ACS - Echocardiogram LVEF 40%, gr 1 diastolic dysfunction Dehydration, diarrhea, enterocolitis -Continue Cipro, Flagyl -Continue to monitor, stool studies - RUQ US negative for cholecytsitis Hypomagnesemia : currently being repleted iv Attestations Medical Necessity Statement*: Patient is to be in hospital for management of enterocolitis. A. fib, need for IV antibiotics. Coding Level of Care Code Acute Chief Of Safety And Protection for Chg Fwd Exam Detailed Diagnoses Atrial fibrillation with RVR I48.91 Acute dehydration E86.0 Enteritis K52.9 Chest pain R07.9 Dyspnea R06.00 UTI (urinary tract infection) N39.0
[2022-07-06] MEDS: metoprolol succinate ER (24 HR) 100 mg Tablet PO ×2 (11:50→22:01)
--- NOTE | 2022-07-06 14:10 | PC.NURSE ---
Patient ambulated in staley with stand by assistance. Patient reported no shortness of breath or dizziness. Heart rate in 140's, A-fib.
[2022-07-06] MEDS: dilTIAZem 60 mg Tablet PO (15:01)
[2022-07-06] MEDS: ondansetron 2 mg/ML SDV 2 mL 4 MG IVP (17:19)
--- NOTE | 2022-07-06 18:18 | PC.NURSE ---
Patient ambulated down staley X4. Patient did not report shortness of breath. Heart rate in 130-140s. After patient returned to bed, Heart rate in 120's. Patient became nauseous and began heaving. No emesis. 4mg Zofran given per order.
[2022-07-07] VITALS (77 sets, daily range): BP systolic 118–151; BP diastolic 40–100; PULSE 66–112; RESP 14–35; TEMP 36.8; O2SAT 85–97
[2022-07-07] MEDS: ciprofloxacin 400 MG/200 ML PREMIX 200 MG IV (03:28)
[2022-07-07] MEDS: metroNIDAZOLE IV 500 MG/100 ML PREMIX 100 MG IV (03:29)
[2022-07-07 04:01] LABS: Basophils # 0.1 10^3/uL (0.0-0.1); Basophils % 0.7 %; Eosinophils # 0.2 10^3/uL (0.0-0.8); Eosinophils % 1.8 %; Hematocrit 40.2 % (37.0-47.0); Hemoglobin 12.7 g/dL (11.5-15.3); Lymphocytes # 1.2 10^3/uL (0.8-4.8); Lymphocytes % 11.2 %; Mean Corpuscular HGB Conc 31.6 g/dL (30.0-36.0); Mean Corpuscular Hemoglobin 30.9 pg (28.0-34.0); Mean Corpuscular Volume 97.8 fl (81-99); Mean Platelet Volume 11.1 fL (7.4-10.4); Monocytes # 1.2 10^3/uL (0.2-0.9); Monocytes % 11.3 %; Neutrophils # 7.68 10^3/uL (1.8-7.7); Neutrophils % 73.7 %; Nucleated Red Blood Cells % 0 %; Platelet Count 171 10^3/cmm (130-400); Red Blood Count 4.11 10^6/uL (4.1-5.3); Red Cell Distribution Width 14.3 % (12.1-15.1); White Blood Count 10.4 10^3/uL (4.0-10.0)
[2022-07-07 04:17] LABS: INR 3.27 (0.8-1.2)
[2022-07-07 04:34] LABS: Alanine Aminotransferase 11 U/L (0-33); Albumin Level 3.5 g/dL (3.5-5.2); Alkaline Phosphatase 83 U/L (35-105); Anion Gap 15.1 (5-19); Aspartate Amino Transferase 18 U/L (0-32); Blood Urea Nitrogen 17 mg/dL (8-23); Calcium 9.3 mg/dL (8.5-10.5); Carbon Dioxide 24 mmol/L (22-29); Chloride 99 mmol/L (98-107); Globulin 2.7 g/dL (1.3-4.6); Glucose 172 mg/dL (65-115); Magnesium 1.9 mg/dL (1.7-2.3); Osmolality Calculated 284 mOsm/kg (285-295); Phosphorus 3.2 mg/dL (2.5-4.5); Potassium 4.1 mmol/L (3.5-5.1); Sodium 134 mmol/L (136-145); Total Bilirubin 0.5 mg/dL (0.15-1.2); Total Protein 6.2 g/dL (6.6-8.7)
[2022-07-07] MEDS: dilTIAZem 60 mg Tablet PO (08:42)
[2022-07-07] MEDS: pantoprazole 40 mg SDV IVP (08:42)
[2022-07-07] MEDS: FUROsemide 10 mg/mL SDV 2mL 20 MG IVP (08:42)
[2022-07-07] MEDS: atorvastatin 40 mg Tablet 20 MG PO (08:43)
--- NOTE | 2022-07-07 10:40 | P.DS_ITS ---
Discharge Providers Date of Admission: 07/04/22 21:37 Date of Discharge: July 07, 2022 Attending Provider at Admission: Nayan Victoria MD Attending Provider at Discharge: Rashaad Guerra MD Primary Care Provider: Francesco Parr MD Diagnoses at Discharge Discharge Diagnosis (1) Atrial fibrillation with RVR: Status: Acute (2) Acute dehydration: Status: Acute (3) Enteritis: Status: Acute (4) Chest pain: Status: Acute (5) Dyspnea: Status: Acute (6) UTI (urinary tract infection): Status: Acute Reason for Visit Reason for Visit: SYNCOPE; AFIB WITH RVR Hospital Course Hospital Course HPI: Nayan Victoria MD Christiane Winkler is a 71 year old female with a past medical history of hypertension, atrial fibrillation on Coumadin, who presents [facility] due to a constellation of symptoms.? He tells me that she has been seeing Dr. Kitchen, she has been complaining of increased shortness of breath, and some intermittent chest pain, she was seeing Dr. Kitchen, who ordered a cardiac echo and a stress test.? Her dose of Lasix also reduced, today, she has been having bouts of nausea, diarrhea with diaphoresis and chills.? She has been having episodes with dizziness, lightheadedness especially when getting up and walking.? This afternoon, when she got off the commode, she took about 15 steps, she felt lightheaded and dizzy, she thinks she passed out as she did not remember the episode, but her tells me that she felt lightheaded, so she got to her knees, she never fell down, no head trauma, no loss of consciousness, but she was a bit difficult to arouse, no seizure-like episodes no strokelike symptoms.? No recent antibiotic use, no history of food poisoning, the diarrhea has clear, no bloody or black stools.? He also has been reporting intermittent abdominal pain, around the umbilicus, she recently had right inguinal hernia surgery which was thought to be very unusual given her age and that she is a female.? When EMS was called out to patient's home, she was found to have A. fib with RVR with heart rates in the 140s to 150s, she is given 1.5 L bolus, since then, her heart rates have come down, to the 100s to 120s, she feels better, but is requiring 3 L, no shortness of breath, no chest pain, no abdominal pain, no fevers, still complaining some chills. Hospital course: She was admitted for the management of enterocolitis, A. fib with RVR, UTI: She was kept on Metro, Cipro , to which she responded well, at the time of discharge, she was not complaining of abdominal pain nausea vomiting, was tolerating diet well. She is being discharged on Metro and Cipro for additional 7 days. For A. fib with RVR, she was continued on metoprolol succinate 100 twice daily, Cardizem 60 twice daily has been added as her heart rate was not well controlled on her home regimen of metoprolol, warfarin was continued. 2D echo done during the hospital stay: Was of poor quality, EF is around 40%, with global hypokinesia, current echo shows mild MR, prior echo done in 2019: Moderate-severe mitral and tricuspid valve regurgitation. Severe pulmonary hypertension with an estimated pulmonary artery. For a history of heart failure with reduced ejection fraction, she has been continued on Lasix 40 p.o. daily Along with her other home medicines, she has a prior stress test done in 2019: Large area of old myocardial infarction versus scarring noted from basal to distal inferior, basal to distal lateral and anterolateral. This study is negative for ischemia. Given her significant underlying cardiac history she has been advised to see Appliance Service Technician as an outpatient, appointment with Dr. Mario will be made on discharge. Overall she has responded well to above medical management and is being discharged in stable condition To home. She will continue to follow with PCP as outpatient. Physical Exam Const: COMMON NORMALS: patient oriented x3 Resp: COMMON NORMALS: normal respiratory effort, No retractions, No use of accessory muscles and clear to auscultation bilaterally EFFORT & INSPECTION: Yes symmetric chest movement AUSCULTATION: clear to auscultation bilaterally Cardio: COMMON NORMALS: No gallops present (Cardio), No murmurs present (Cardio), No rub (Cardio) and Peripheral pulses 2+ throughout PERIPHERAL PULSES: Peripheral pulses 2+ throughout OTHER: Irregularly irregular rhythm, S1-S2 variable intensity GI: COMMON NORMALS: Normal to inspection, nondistended, normoactive bowel s ounds present, Soft to palpation, non-tender, No hepatosplenomegaly present and no masses AUSCULTATION: Yes normoactive bowel sounds PALPATION: Yes Soft to palpation and Yes No hepatosplenomegaly present RECTAL EXAM: deferred Extremity: COMMON NORMALS: no clubbing, cyanosis or edema and no pedal edema Neuro: COMMON NORMALS: patient oriented x3 Discharge Data Studies Completed and Pending Completed Studies During Hospitalization Category Date Time Status CT abdomen pelvis w con* [id number] Stat Cat Scan 07/04/22 19:15 Completed XR chest 1V portable [id number] Stat Exams 07/04/22 18:09 Completed CV carotid duplex BI* [id number] Stat Ultrasound 07/04/22 22:35 [place] [id number] Routine Ultrasound 07/05/22 10:29 Completed CV. echo complete* [id number] Stat Ultrasound 07/04/22 22:35 Completed US duplex aorta [CV duplex aorta [id number]] Stat Ultrasound 07/04/22 22:33 Completed US gall bladder [id number] Stat Ultrasound 07/04/22 22:33 Completed Pending at discharge Category Date Time Status Blood Culture Routine Lab 07/05/22 03:39 Results Radiology Impressions Chest X-Ray 07/04/22 18:09 IMPRESSION: Cardiomegaly, lungs are clear. Abdomen/Pelvis CT 07/04/22 19:15 IMPRESSION: 1. Prominent fluid throughout the small bowel and colon with mucosal enhancement suggestive of an enterocolitis. 2. 3 cm apparent cystic fibroid in the uterine fundus. 3. Small amount nonspecific fluid in the pelvis. 4. Cardiomegaly. 5. Emphysematous changes. 6. Coronary artery atherosclerotic calcifications. 7. Small hiatal hernia. 8. Urinary bladder wall thickening may be due to nondistention, a cystitis may also be a consideration depending on the clinical scenario. 9. Large amount of nearly occlusive atherosclerotic calcified plaque seen in the distal abdominal aorta with contrast seen distally. Aorta Iliac Vascular Ultrasound 07/04/22 22:33 IMPRESSION: 1. Proximal abdominal aorta not visualized . 2. Atherosclerotic plaque in the mid to distal abdominal aorta with color blood flow present. Plaque limits evaluation of velocity measurements. Gallbladder Ultrasound 07/04/22 22:33 IMPRESSION: Gallbladder wall is mildly prominent at 4.1 mm without cholelithiasis or findings to suggest cholecystitis by ultrasound alone. If clinically indicated a nuclear medicine HIDA scan could further evaluate the gallbladder if concern for cholecystitis remains. Carotid Doppler Study 07/04/22 22:35 IMPRESSION: 1. Right internal carotid artery peak systolic velocity of 123 cm/s consistent with nearly 50-75% stenosis. 2. Left internal carotid artery peak systolic velocity of 108 cm/s consistent with less than 50% stenosis. 3. Scattered areas of atherosclerotic plaque throughout the carotid arteries. REFERENCES: SRU CRITERIA. The degree of internal carotid artery stenosis is based on criteria defined by the Society of Radiologists in Ultrasound (SRU). Normal is no stenosis. Mild is less than 50% stenosis. Moderate is 50-69% stenosis. Severe is greater than 69% stenosis to near occlusion. Near occlusion is a markedly narrowed lumen. Total occlusion is no detectable patent lumen. Laboratory Results WBC 10.4 10^3/uL (4.0-10.0) H 07/07/22 03:30 RBC 4.11 10^6/uL (4.1-5.3) 07/07/22 03:30 Hgb 12.7 g/dL (11.5-15.3) 07/07/22 03:30 Hct 40.2 % (37.0-47.0) 07/07/22 03:30 MCV 97.8 fl (81-99) 07/07/22 03:30 MCH 30.9 pg (28.0-34.0) 07/07/22 03:30 MCHC 31.6 g/dL (30.0-36.0) 07/07/22 03:30 RDW 14.3 % (12.1-15.1) 07/07/22 03:30 Plt Count 171 10^3/cmm (130-400) 07/07/22 03:30 MPV 11.1 fL (7.4-10.4) H 07/07/22 03:30 Neut % (Auto) 73.7 % 07/07/22 03:30 Lymph % (Auto) 11.2 % 07/07/22 03:30 [place] % (Auto) 11.3 % 07/07/22 03:30 Eos % (Auto) 1.8 % 07/07/22 03:30 Baso % (Auto) 0.7 % 07/07/22 03:30 Neut # (Auto) 7.68 10^3/uL (1.8-7.7) 07/07/22 03:30 Lymph # (Auto) 1.2 10^3/uL (0.8-4.8) 07/07/22 03:30 [place] # (Auto) 1.2 10^3/uL (0.2-0.9) H 07/07/22 03:30 Eos # (Auto) 0.2 10^3/uL (0.0-0.8) 07/07/22 03:30 Baso # (Auto) 0.1 10^3/uL (0.0-0.1) 07/07/22 03:30 Nucleated RBC % (auto) 0 % 07/07/22 03:30 Nucleated RBCs # 0.0 /100WBC 07/07/22 03:30 PT 33.60 SECONDS (12.1-14.9) H 07/07/22 03:30 INR 3.27 (0.8-1.2) H 07/07/22 03:30 Sodium 134 mmol/L (136-145) L 07/07/22 03:30 Potassium 4.1 mmol/L (3.5-5.1) 07/07/22 03:30 Chloride 99 mmol/L (98-107) 07/07/22 03:30 Carbon Dioxide 24 mmol/L (22-29) 07/07/22 03:30 Anion Gap 15.1 (5-19) 07/07/22 03:30 BUN 17 mg/dL (8-23) 07/07/22 03:30 Creatinine 0.9 mg/dL (0.5-0.9) 07/07/22 03:30 GFR Calculation Not Reportable 07/07/22 03:30 Glucose 172 mg/dL (65-115) H 07/07/22 03:30 POC Glucose 179 mg/dL (70-110) H 07/05/22 07:50 Estimat Average Glucose 217 07/04/22 18:20 Hemoglobin A1c 9.2 % (4.0-6.0) H 07/04/22 18:20 Calculated Osmolality 284 mOsm/kg (285-295) L 07/07/22 03:30 Lactic Acid 3.2 mmol/L (0.5-2.2) H 07/04/22 19:05 Lactic Acid (Sepsis) 1.8 mmol/L (0.5-2.2) 07/04/22 22:05 Calcium 9.3 mg/dL (8.5-10.5) 07/07/22 03:30 Phosphorus 3.2 mg/dL (2.5-4.5) 07/07/22 03:30 Magnesium 1.9 mg/dL (1.7-2.3) 07/07/22 03:30 Total Bilirubin 0.5 mg/dL (0.15-1.2) 07/07/22 03:30 AST 18 U/L (0-32) 07/07/22 03:30 ALT 11 U/L (0-33) 07/07/22 03:30 Alkaline Phosphatase 83 U/L (35-105) 07/07/22 03:30 Troponin T Baseline 11 ng/L (0-10) H 07/04/22 19:05 Troponin T 120 Minute 12.19 ng/L (0-10) H 07/04/22 20:28 Delta Troponin T 1.19 ABS# (0-10) 07/04/22 20:28 Troponin T Hi Sens 6Hr 12.81 ng/L (0-10) H 07/05/22 01:05 Troponin T Hi Sens 6Hr Delta 1.81 ng/L (0-12) 07/05/22 01:05 C-Reactive Protein 3.0 mg/L (0.0-4.9) 07/04/22 19:05 NT-Pro-B Natriuret Pep 5023 pg/mL (0-125) H 07/04/22 19:05 Total Protein 6.2 g/dL (6.6-8.7) L 07/07/22 03:30 Albumin 3.5 g/dL (3.5-5.2) 07/07/22 03:30 Globulin 2.7 g/dL (1.3-4.6) 07/07/22 03:30 Lipase 29 U/L (13-60) 07/04/22 19:05 Procalcitonin 0.16 ng/mL (0-0.5) 07/04/22 19:05 TSH 1.24 uIU/mL (0.27-4.20) 07/04/22 20:28 Urine Color Yellow (Yellow) 07/04/22 20:06 Urine Appearance Cloudy (CLEAR) 07/04/22 20:06 Urine pH 5 (5-7) 07/04/22 20:06 Ur Specific [place] 1.005 (1.005-1.030) 07/04/22 20:06 Urine Protein 2+ (Negative) H 07/04/22 20:06 Urine Glucose (UA) Trace (Normal) H 07/04/22 20:06 Urine Ketones Negative (Negative) 07/04/22 20:06 Urine Blood 2+ (Negative) H 07/04/22 20:06 Urine Nitrate Negative (Negative) 07/04/22 20:06 Urine Bilirubin Neg (Negative) 07/04/22 20:06 Urine Urobilinogen Norm mg/dL (Negative) 07/04/22 20:06 Ur Leukocyte Esterase 1+ (Negative) H 07/04/22 20:06 Urine RBC 0-4 /hpf (0-2) H 07/04/22 20:06 Urine WBC 15-25 /hpf (0-5) H 07/04/22 20:06 Ur Squamous Epith Cells 0-4 /hpf (0-5) H 07/04/22 20:06 Amorphous Sediment Not Reportable 07/04/22 20:06 Urine Bacteria 1+ /hpf (NONE) H 07/04/22 20:06 Hyaline Casts 5-10 /lpf H 07/04/22 20:06 Urine Mucus Trace /hpf 07/04/22 20:06 Urine Yeast Trace /hpf 07/04/22 20:06 Coronavirus 229E (PCR) Not detected (NOT DETECT) 07/04/22 19:31 SARS-CoV-2 (PCR) Not detected (NOT DETECT) 07/04/22 19:31 Vitals Last Vital Signs Temp 97.8 F 07/06/22 20:20 Pulse 84 07/07/22 05:25 Resp 17 07/07/22 05:25 BP 129/62 07/07/22 05:45 Pulse Ox 95 07/07/22 05:25 O2 Del Method 07/06/22 16:35 O2 Flow Rate 2 07/05/22 08:00 Discharge Plan Discharge Patient Disposition: Home Condition: Stable Prescriptions: New Cardizem 60 mg tablet 60 mg PO BID 30 Days Qty: 60 1RF ciprofloxacin HCl 500 mg tablet 500 mg PO BID Qty: 14 0RF metronidazole 500 mg tablet 500 mg PO BID 7 Days Qty: 14 0RF Continued furosemide 40 mg tablet 40 mg PO Q12H atorvastatin 20 mg tablet 20 mg PO DAILY potassium chloride 10 mEq tablet extended release 10 meq PO BID warfarin 2 mg tablet 2 mg PO BID metoprolol succinate 100 mg tablet extended release 24 hr 100 mg PO BID Qty: 90 3RF Held benazepril 10 mg tablet 10 mg PO BID Hold Instructions: Resume on 07/13/22. Discharge Orders: Discharge Order (Routine); Ordered 07/07/22 Ordered By: Rashaad Guerra Referrals: Scotty Mario MD [Physician] - 2 weeks Francesco Parr MD [Primary Care Provider] - 1 week Discharge Diet: Cardiac Patient Instructions: Opioid Safety Discharge Attestations Time Spent in Discharge Care*: less than 30 min Quality Metrics Clinical Quality Measures [ No reported AMI, CVA or VTE this stay] Coding Level of Care Code Acute Chg FW DC note Exam Detailed Diagnoses Atrial fibrillation with RVR I48.91 Acute dehydration E86.0 Enteritis K52.9 Chest pain R07.9 Dyspnea R06.00 UTI (urinary tract infection) N39.0
--- NOTE | 2022-07-07 11:45 | PC.NURSE ---
Entered room to administer IV Flagyl prior to discharge to discover pt had removed both IV catheters. Catheters located on bedside table with tips intact. Both sites observed on pt's arm and look unremarkable. Pt apologized repeatedly. Extremely pleasant.
[2022-07-07] MEDS: metoprolol succinate ER (24 HR) 100 mg Tablet PO (12:03)
--- NOTE | 2022-07-07 12:50 | PC.NURSE ---
Pt given discharge info. Denies questions or pain/needs. Eager to be going home. at bedside. Pt escorted to vehicle in .
== END 2022-07-07 12:50 | disposition home or self-care (01) | DRG 690 ==
LOC: ER 23:00 → ER IP 23:57 → ICU 07-05 01:38
PROVIDERS: Emergency Medicine; Admitting Provider Family Medicine; Emergency Provider Emergency Medicine; PCP Family Medicine; Visit Provider Internal Medicine
DX: N39.0 Urinary tract infection, site not specified (principal); I50.22 Chronic systolic (congestive) heart failure; K52.9 Noninfective gastroenteritis and colitis, unspecified; I48.91 Unspecified atrial fibrillation; I11.0 Hypertensive heart disease with heart failure; I08.1 Rheumatic disorders of both mitral and tricuspid valves; E86.0 Dehydration; E83.42 Hypomagnesemia; I27.20 Pulmonary hypertension, unspecified; Z79.01 Long term (current) use of anticoagulants
CPT/HCPCS: 36415; 36416; 71045; 74177; 76705; 80053; 81001; 82962; 83036; 83605; 83690; 83735; 83880; 84100; 84145; 84443; 84484; 85025; 85610; 86140; 87040; 87086; 87635; 93005; 93306; 93880; 93970; 93978; 94664; 96365; 96367; 96375; 96376; 99285; C9113; J0696; J0744; J1940; J2405; J3475; J3480; J3490; J7040; Q9967; S0030

== ENCOUNTER → 2022-08-11 08:46 | Outpatient (BNVA) | payer MEDICARE, OTHER, SELFPAY | PROVIDERS: PCP Family Medicine; Visit Provider Family Medicine | DX: I48.91 Unspecified atrial fibrillation (principal); I50.9 Heart failure, unspecified; Z51.81 Encounter for therapeutic drug level monitoring; Z79.01 Long term (current) use of anticoagulants | CPT/HCPCS: 80053; 85025; 85610 ==

== ENCOUNTER → 2022-09-15 09:03 | Outpatient (BNVA) | payer MEDICARE, OTHER, SELFPAY | PROVIDERS: PCP Family Medicine; Visit Provider Family Medicine | DX: Z51.81 Encounter for therapeutic drug level monitoring (principal); Z79.01 Long term (current) use of anticoagulants; I48.91 Unspecified atrial fibrillation; I50.9 Heart failure, unspecified | CPT/HCPCS: 80048; 83880; 85610 ==

== ENCOUNTER 2022-10-25 06:30 | Outpatient (CLI) | payer MEDICARE, OTHER, SELFPAY ==
--- NOTE | 2022-10-25 | ECG_ITS ---
[facility] Test Date: 2022-10-25 Pat Name: Christiane Winkler Department: Room: Gender: Female Grant Administrator: : 1950 Requested By: Francesco Mireles Order Number: [id number] Benton MD: Alexandria Worthington M.D. Interpretive Statements NAME OF STUDY: LEXISCAN SESTAMIBI STRESS TEST INDICATION: Chest pain, dyspnea on exertion PROCEDURE: At the baseline, the blood pressure was 162/73 mmHg with a heart rate of 90 bpm. The electrocardiogram showed atrial fibrillation, normal axis. Nonspecific ST and T wave changes. The Lexiscan was infused over a period of 20 seconds. A total of 0.4 milligrams of Lexiscan was infused. The stress phase was continued for a total of 5 minutes. Heart rate at the end of the stress phase was 90 bpm with a blood pressure of 157/71 mmHg. The EKG at the peak infusion revealed no significant ST-T wave changes. The study was terminated due to protocol completion. Sestamibi was injected 20 seconds after the Lexiscan infusion. Blood pressure at the end of the recovery phase was 133/76 mmHg with a heart rate of 98 beats per minute. Isolated PVCs/aberrantly conducted beats noted in recovery. CONCLUSION: 1. No significant EKG changes with the LexiScan infusion. 2. No LexiScan induced chest pain or cardiac arrhythmia. 3. Normal blood pressure and heart rate response. 4. Sestamibi/sestamibi perfusion scan pending; see separate report. Electronically Signed On 10-27-2022 12:31:33 CYLINDER DIE MACHINE HELPER by Alexandria Worthington M.D. [id number]
--- NOTE | 2022-10-25 06:39 | NMCV_ITS ---
NM luis antonio perf SPECT r/s* [id number] Christiane Winkler Age: 72 Gender: F : 1950 Exam Date: 10/25/2022 07:50 Ordering Phys: Francesco Parr MD Technologist: DONNIE Shay Exam Location: [facility] Indications: CHEST PAIN STRESS TEST Please see [facility] for [facility] IMAGE PROTOCOL Rest/Stress 1 Lexiscan Day Radiopharmaceutical Dose (mCi) Administration Site Administered by Rest: Tc-99m 10.8 IV DONNIE Gonzalez Sestamibi Stress:Tc-99m 32.6 IV DONNIE Gonzalez Sestamibi Rest: 25-Oct-2022 60 Discovery 630 Stress: 25-Oct-2022 30 Discovery 630 0.4mg Lexiscan. Images obtained in supine and prone position. SPECT RESULTS Technical Quality: Excellent Raw Data Analysis: Normal Image Corrections: No attenuation or motion correction applied Summed Stress Score: 20 Summed Rest Score: 17 Summed Difference Score: 3 PERFUSION FINDINGS Large sized perfusion abnormality of moderate to severe severity of basal to apical inferior, basal to mid inferolateral, basal to mid anterolateral, apical lateral bond on rest images with subtle reversibility on inferior wall on stress images. FUNCTIONAL RESULTS (calculated via Gated SPECT) Stress Image LV EF (%): 33 Stress EDV (mL):120 TID: 0.97 Stress ESV (mL):80 FUNCTIONAL FINDINGS: The left ventricle is normal in size. Transient Ischemia Dilatation of 0.97. The left ventricular ejection fraction is moderately reduced with a value of 33%. There is moderate global hypokinesis more pronounced in inferior and mid to apical lateral bond. IMPRESSIONS 1. Large sized predominantly fixed perfusion abnormality of basal to apical inferior, basal to mid inferolateral, basal to mid anterolateral, apical lateral bond. 2. This is suggestive of old myocardial infarction in right coronary /circumflex artery territory with no significant anika-infarct ischemia. 3. The left ventricular ejection fraction is moderately reduced with a value of 33%. 4. There is moderate global hypokinesis more pronounced in inferior and mid to apical lateral bond. 5. EKG portion of the study will be reported separately. Alexandria Worthington MD (Electronically Signed) Final Date: 26 October 2022 16:52 S
[2022-10-25 07:02] VITALS: BMI 25.9
[2022-10-25] MEDS: regadenoson 0.4 Mg/5 ml Syringe IVP (08:20)
[2022-10-25 08:47] VITALS: BP 133/76; PULSE 99
== END 2022-10-25 06:31 | disposition home or self-care (01) ==
LOC: CDL 06:32
PROVIDERS: PCP Family Medicine; Visit Provider Family Medicine
DX: R06.00 Dyspnea, unspecified (principal); R07.9 Chest pain, unspecified
CPT/HCPCS: 36415; 78452; 93017; 96374; A9500; J2785

== ENCOUNTER → 2022-12-15 10:09 | Outpatient (BNVA) | payer MEDICARE, OTHER, SELFPAY | PROVIDERS: PCP Family Medicine; Visit Provider Family Medicine | DX: I50.9 Heart failure, unspecified (principal); I48.91 Unspecified atrial fibrillation; Z51.81 Encounter for therapeutic drug level monitoring; Z79.01 Long term (current) use of anticoagulants; E11.9 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 without complications | CPT/HCPCS: 80053; 80061; 83036; 83880; 85025; 85610 ==

== ENCOUNTER → 2023-02-08 13:52 | Outpatient (BNVA) | payer MEDICARE, OTHER, SELFPAY | PROVIDERS: PCP Family Medicine; Visit Provider Family Medicine | DX: Z51.81 Encounter for therapeutic drug level monitoring (principal); Z79.01 Long term (current) use of anticoagulants; I48.91 Unspecified atrial fibrillation; I50.9 Heart failure, unspecified; E11.9 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 without complications | CPT/HCPCS: 80053; 83880; 85025; 85610 ==

== ENCOUNTER → 2023-03-22 13:37 | Outpatient (BNVA) | payer MEDICARE, OTHER, SELFPAY | PROVIDERS: PCP Family Medicine; Visit Provider Family Medicine | DX: Z51.81 Encounter for therapeutic drug level monitoring (principal); Z79.01 Long term (current) use of anticoagulants | CPT/HCPCS: 85610 ==

== ENCOUNTER → 2023-04-14 12:11 | Outpatient (BNVA) | payer MEDICARE, OTHER, SELFPAY | PROVIDERS: PCP Family Medicine; Visit Provider Family Medicine | DX: Z51.81 Encounter for therapeutic drug level monitoring (principal); Z79.01 Long term (current) use of anticoagulants; I48.91 Unspecified atrial fibrillation; E11.9 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 without complications; I11.0 Hypertensive heart disease with heart failure; I50.89 Other heart failure | CPT/HCPCS: 80053; 83036; 83880; 85610 ==

== ENCOUNTER → 2023-05-03 09:52 | Outpatient (BNVA) | payer MEDICARE, OTHER, SELFPAY | PROVIDERS: PCP Family Medicine; Visit Provider Family Medicine | DX: Z51.81 Encounter for therapeutic drug level monitoring (principal); Z79.01 Long term (current) use of anticoagulants | CPT/HCPCS: 85610 ==

== ENCOUNTER → 2023-06-01 10:35 | Outpatient (BNVA) | payer MEDICARE, OTHER, SELFPAY | PROVIDERS: PCP Family Medicine; Visit Provider Family Medicine | DX: I48.91 Unspecified atrial fibrillation (principal); Z51.81 Encounter for therapeutic drug level monitoring; Z79.01 Long term (current) use of anticoagulants | CPT/HCPCS: 85610 ==

== ENCOUNTER → 2023-07-13 09:00 | Outpatient (BNVA) | payer MEDICARE, OTHER, SELFPAY | PROVIDERS: PCP Family Medicine; Visit Provider Family Medicine | DX: Z51.81 Encounter for therapeutic drug level monitoring (principal); Z79.01 Long term (current) use of anticoagulants | CPT/HCPCS: 85610 ==

== ENCOUNTER → 2023-07-21 11:58 | Outpatient (BNVA) | payer MEDICARE, OTHER, SELFPAY | PROVIDERS: PCP Family Medicine; Visit Provider Family Medicine | DX: E11.9 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 without complications (principal); Z51.81 Encounter for therapeutic drug level monitoring; Z79.01 Long term (current) use of anticoagulants; I48.91 Unspecified atrial fibrillation; I50.9 Heart failure, unspecified | CPT/HCPCS: 80053; 83036; 83880 ==

== ENCOUNTER → 2023-08-02 12:24 | Outpatient (BNVA) | payer MEDICARE, OTHER, SELFPAY | PROVIDERS: PCP Family Medicine; Visit Provider Family Medicine | DX: R30.0 Dysuria (principal); N39.0 Urinary tract infection, site not specified | CPT/HCPCS: 81000; 87086; 87184 ==

== ENCOUNTER → 2023-10-04 11:00 | Outpatient (BNVA) | payer MEDICARE, OTHER, SELFPAY | PROVIDERS: PCP Family Medicine; Visit Provider Family Medicine | DX: I50.9 Heart failure, unspecified (principal); I48.91 Unspecified atrial fibrillation | CPT/HCPCS: 85025 ==

== ENCOUNTER → 2023-11-30 08:47 | Outpatient (BNVA) | payer MEDICARE, OTHER, SELFPAY | PROVIDERS: PCP Family Medicine; Visit Provider Family Medicine | DX: Z51.81 Encounter for therapeutic drug level monitoring (principal); Z79.01 Long term (current) use of anticoagulants; I50.9 Heart failure, unspecified; I48.91 Unspecified atrial fibrillation; E11.9 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 without complications | CPT/HCPCS: 80053; 83036; 83880; 85025; 85610 ==

== ENCOUNTER → 2023-12-01 10:26 | Outpatient (BNVA) | payer MEDICARE, OTHER, SELFPAY | PROVIDERS: PCP Family Medicine; Visit Provider Family Medicine | DX: Z01.810 Encounter for preprocedural cardiovascular examination (principal); Z51.81 Encounter for therapeutic drug level monitoring; Z79.01 Long term (current) use of anticoagulants; E11.9 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 without complications; I48.91 Unspecified atrial fibrillation; I50.9 Heart failure, unspecified | CPT/HCPCS: 80053; 83036; 83880; 85025; 85610 ==

== ENCOUNTER → 2024-01-02 09:36 | Outpatient (BNVA) | payer MEDICARE, OTHER, SELFPAY | PROVIDERS: PCP Family Medicine; Visit Provider Family Medicine | DX: I48.91 Unspecified atrial fibrillation (principal) | CPT/HCPCS: 85610 ==

== ENCOUNTER → 2024-02-02 07:48 | Outpatient (BNVA) | payer MEDICARE, OTHER, SELFPAY | PROVIDERS: PCP Family Medicine; Visit Provider Family Medicine | DX: Z51.81 Encounter for therapeutic drug level monitoring (principal); Z79.01 Long term (current) use of anticoagulants; I50.9 Heart failure, unspecified; I48.91 Unspecified atrial fibrillation; E11.9 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 without complications | CPT/HCPCS: 80053; 83036; 83880; 85025; 85610 ==

== ENCOUNTER 2024-02-14 06:38 | Outpatient (CLI) | payer MEDICARE, OTHER, SELFPAY ==
--- NOTE | 2024-02-14 07:15 | USCV_ITS ---
Christiane Winkler Age: 73 Gender: F : 1950 Exam Date: 02/14/2024 06:49 Ordering Phys: Francesco Parr MD Technologist: Haven Clarke Exam Location: [facility] – [place] Indication: KNOWN AFIB MURMUR BP: 136 / 80 HR: 64 Rhythm: Atrial fibrillation Technical Quality: Adequate MEASUREMENTS (Male / Female) Normal Values 2D ECHO LV Diastolic Diameter PLAX 4.4 cm 4.2 - 5.9 / 3.9 - 5.3 cm IVS Diastolic Thickness 1.3 cm 0.6 - 1.0 / 0.6 - 0.9 cm IVS Systolic Thickness 1.3 cm LVPW Diastolic Thickness 1.6 cm 0.6 - 1.0 / 0.6 - 0.9 cm LVPW Systolic Thickness 1.6 cm LVOT Diameter 2.0 cm LV Ejection Fraction 2D Teich 32.2 % LV Ejection Fraction MOD 2C 60.5 % LV Ejection Fraction 2C AL 61.0 % LA Diameter 4.4 cm RA Systolic Volume 4C AL 54.7 ml RA Systolic Volume 4C MOD 52.3 ml LA Sys Volume AL 82.2 cm cubed LA Sys Volume Index AL 51.0 cm cubed/m squared Aorta at Sinotubular Diameter 2.4 cm IVC Diameter 1.5 cm M-MODE LA Ao Ratio MM 1.7 AV Cusp Separation MM 1.5 cm DOPPLER AV Peak Velocity 116.0 cm/s LVOT Peak Velocity 65.0 cm/s AV Area Cont Eq vti 2.0 cm squared AV Area Cont Eq pk 1.8 cm squared TV Peak Velocity 379.5 cm/s TR Peak Velocity 380.0 cm/s TR Peak Gradient 57.8 mmHg TR Mean Velocity 266.0 cm/s TR Mean Gradient 32.3 mmHg TR Velocity Time Integral 131.0 cm TV Peak E Velocity 63.0 cm/s Right Atrial Pressure 3.0 mmHg Pulmonary Artery Systolic Pressu 60.8 mmHg PV Peak Velocity 68.0 cm/s RV Ejection Time 0.3 s FINDINGS Left Ventricle Diffuse hypokinesia left ventricular ejection fraction of 43%. Normal LV size. Right Ventricle Normal right ventricular size and systolic function. Right Atrium Mildly increased right atrial size. Left Atrium Moderately increased left atrial size. Mitral Valve Moderate-severe eccentric mitral valve regurgitation. Aortic Valve No gross abnormalities noted Tricuspid Valve Moderately severe tricuspid valve regurgitation. Moderate pulmonary hypertension with an estimated pulmonary artery peak systolic pressure of 61 mmHg Pulmonic Valve Mild pulmonary valve regurgitation. Pericardium Normal pericardium without effusion. Aorta Normal ascending aorta dimension. IVC Normal inferior vena cava. CONCLUSIONS Diffuse hypokinesia left ventricular ejection fraction of 43%. Normal LV size. Moderately increased left atrial size. Mildly increased right atrial size. Moderate-severe eccentric mitral valve regurgitation. Moderately severe tricuspid valve regurgitation. Moderate pulmonary hypertension with an estimated pulmonary artery peak systolic pressure of 61 mmHg. Mild pulmonary valve regurgitation. There is no pericardial effusion. There are no intracardiac masses. Compared to the study from 07/04/2022, there is biatrial enlargement there is no significant change in the LV ejection fraction Dr Dalila Ponce MD [facility] (Electronically Signed) Final Date: 15 February 2024 11:30 S
== END 2024-02-14 06:39 | disposition home or self-care (01) ==
PROVIDERS: PCP Family Medicine; Visit Provider Family Medicine
DX: I50.9 Heart failure, unspecified (principal); I08.1 Rheumatic disorders of both mitral and tricuspid valves
CPT/HCPCS: 93306

== ENCOUNTER → 2024-03-23 08:45 | Outpatient (BNVA) | payer MEDICARE, OTHER, SELFPAY | PROVIDERS: PCP Family Medicine; Visit Provider Family Medicine | DX: I48.91 Unspecified atrial fibrillation (principal) | CPT/HCPCS: 85610 ==

== ENCOUNTER → 2024-03-30 09:20 | Outpatient (BNVA) | payer MEDICARE, OTHER, SELFPAY | PROVIDERS: PCP Family Medicine; Visit Provider Family Medicine | DX: Z51.81 Encounter for therapeutic drug level monitoring (principal); Z79.01 Long term (current) use of anticoagulants; E11.9 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 without complications; I50.9 Heart failure, unspecified; I48.91 Unspecified atrial fibrillation; K52.9 Noninfective gastroenteritis and colitis, unspecified | CPT/HCPCS: 80053; 83036; 83880; 85025; 85610 ==

== ENCOUNTER → 2024-05-08 08:58 | Outpatient (BNVA) | payer MEDICARE, OTHER, SELFPAY | PROVIDERS: PCP Family Medicine; Visit Provider Family Medicine | DX: Z51.81 Encounter for therapeutic drug level monitoring (principal); Z79.01 Long term (current) use of anticoagulants; I48.91 Unspecified atrial fibrillation | CPT/HCPCS: 85610 ==

== ENCOUNTER → 2024-06-13 09:15 | Outpatient (BNVA) | payer MEDICARE, OTHER, SELFPAY | PROVIDERS: PCP Family Medicine; Visit Provider Family Medicine | DX: I48.91 Unspecified atrial fibrillation (principal) | CPT/HCPCS: 85610 ==

== ENCOUNTER 2024-07-10 06:00 | Outpatient (CLI) | payer MEDICARE, OTHER, SELFPAY | END 2024-07-10 06:01 | disposition home or self-care (01) | LOC: RAD 07-11 13:34 | PROVIDERS: PCP Family Medicine; Visit Provider Family Medicine | DX: I50.9 Heart failure, unspecified (principal); K52.9 Noninfective gastroenteritis and colitis, unspecified; I48.91 Unspecified atrial fibrillation; E11.9 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 without complications; Z79.01 Long term (current) use of anticoagulants; Z51.81 Encounter for therapeutic drug level monitoring | CPT/HCPCS: 80053; 80061; 83036; 83880; 85025; 85610 ==

== ENCOUNTER 2024-07-19 07:54 | Outpatient (CLI) | payer MEDICARE, OTHER, SELFPAY ==
--- NOTE | 2024-07-19 07:56 | CT_ITS ---
WS: [id number] CT ABDOMEN AND PELVIS WITH CONTRAST HISTORY: abd pain / f/u on CT 2 years ago TECHNIQUE: Imaging performed of the abdomen and pelvis with IV contrast. Single phase imaging of the abdomen. Coronal and sagittal reformats are submitted. All CT scans at [facility] use at [address] one of these dose optimization techniques: automated exposure control; mA and/or kV adjustment per patient size (includes targeted exams where dose is matched to clinical indication); or iterative re construction. IV CONTRAST: Omnipaque 350; 100 mL IV. Oral contrast: Yes. DLP: 282.95 mGy.cm COMPARISON: 07/04/2022 Lower thorax: Mild dependent changes at the lung bases. Markedly enlarged heart. No significant dilat ation of both atria. There is a small paracardiac lymph node which is stable. Prior surgery at the GE junction. Probably related to the fundoplication. Liver/biliary system: Normal size with no intrahepatic dilatation. Gallbladder: Normal. No gallstones or wall thickening. No pericholecystic fluid. Pancreas: Mild pancreatic atrophy. No duct dilatation. Spleen: Normal size with granulomata. Adrenal glands: Normal. Right kidney: Normal. Left kidney: Normal. Aorta: Severe atherosclerosis abdominal aorta. Sclerotic component of the stenosis throughout the aor ta. The lumen is significantly narrowed with decreased contrast opacification. Heavy calcification at the origin of the SMA and celiac axis. Mesenteric stenosis is present although there is no complete occlusion. Lymphadenopathy: None. Free fluid: None. GI tract: Normally distended stomach and small bowel. No ischemic changes. Normal appendix. Mild dive rticular disease in the sigmoid. Abdominal wall: Unremarkable abdominal wall. No hernia. Pelvis: Partially distended urinary bladder. Uterus is atrophic. Slightly bulbous appearance of the d istal uterus. Uterus and adnexa poorly visualized by CT. Bones: 5 mm anterolisthesis L4. No destructive bone lesions. CT/CT abdomen pelvis w con* [id number] IMPRESSION: 1. Severe atherosclerotic disease abdominal aorta and mesenteric arteries. Hig h-grade stenosis throughout the abdominal aorta and mesenteric arteries. Patien t is at risk for ischemia due to dense calcified plaque. 2. Bulbous mildly heterogeneous appearance of the uterus. The uterus should be further evaluated by transvaginal pelvic ultrasound to exclude endometrial butch plasm. 3. No ascites or adenopathy. 4. Mild sigmoid diverticular disease.
== END 2024-07-19 07:55 | disposition home or self-care (01) ==
LOC: RAD 07-23 07:55
PROVIDERS: PCP Family Medicine; Visit Provider Family Medicine
DX: R10.9 Unspecified abdominal pain (principal); I51.7 Cardiomegaly; I70.0 Atherosclerosis of aorta; I70.8 Atherosclerosis of other arteries; N85.8 Other specified noninflammatory disorders of uterus
CPT/HCPCS: 74177

== ENCOUNTER 2024-08-24 09:02 | Outpatient (CLI) | payer MEDICARE, OTHER, SELFPAY ==
--- NOTE | 2024-08-24 09:45 | US_ITS ---
WS: [id number] US transvaginal [id number] HISTORY: uterine mass COMPARISON: CT 07/19/2024 Uterus: 6.9 cm x 2.9 cm x 2.7 cm. Mildly atrophic uterus is retroverted. There is fluid along the endocervical canal. Soft tissue mass with calcifications and shadowing from tissue refraction. This mass is hypoechoic to the adjacent normal myometrium. Mass measures 1.9 x 2.3 x 2.2 cm and is most likely of leiomyoma. Th e leiomyoma is distorting the central structures due to its large size. Endometrium: 0.2 cm. Poorly visualized endometrium. There is a small amount of fluid along the lower endometrial canal. Majority of the endometrium and is being displaced by the leiomyoma. Neither ovary is identified. No adnexal masses. No free fluid in the cul-de-sac. US/US transvaginal [id number] IMPRESSION: 1. Hypoechoic mass centered in the uterus greatest toward the fundus measures 1.9 x 2.3 x 2.2 cm. This is most consistent with a leiomyoma. 2. Small portion of the endometrium is visualized and atrophic. Majority of th e endometrium is being displaced and obscured by the fibroid. 3. There is simple fluid along the endometrial canal. Component of cervical st enosis is likely. 4. Neither ovary is identified.
== END 2024-08-24 09:03 | disposition home or self-care (01) ==
LOC: RAD 09:03
PROVIDERS: PCP Family Medicine; Visit Provider Family Medicine
DX: D26.9 Other benign neoplasm of uterus, unspecified (principal); D25.9 Leiomyoma of uterus, unspecified; N85.8 Other specified noninflammatory disorders of uterus
CPT/HCPCS: 76830

== ENCOUNTER → 2024-08-30 11:49 | Outpatient (BNVA) | payer MEDICARE, OTHER, SELFPAY | PROVIDERS: PCP Family Medicine; Visit Provider Family Medicine | DX: R30.0 Dysuria (principal) | CPT/HCPCS: 81000; 85610; 87077; 87086; 87184 ==

== ENCOUNTER → 2024-10-16 12:08 | Outpatient (BNVA) | payer MEDICARE, OTHER, SELFPAY | PROVIDERS: PCP Family Medicine; Visit Provider Family Medicine | DX: I48.91 Unspecified atrial fibrillation (principal); I50.9 Heart failure, unspecified; Z51.81 Encounter for therapeutic drug level monitoring; Z79.01 Long term (current) use of anticoagulants | CPT/HCPCS: 80048; 85025; 85610 ==

== ENCOUNTER → 2024-12-03 09:29 | Outpatient (BNVA) | payer MEDICARE, OTHER, SELFPAY | PROVIDERS: PCP Family Medicine; Visit Provider Family Medicine | DX: Z51.81 Encounter for therapeutic drug level monitoring (principal); Z79.01 Long term (current) use of anticoagulants | CPT/HCPCS: 85610 ==

== ENCOUNTER → 2025-01-10 13:58 | Outpatient (BNVA) | payer MEDICARE, OTHER, SELFPAY | PROVIDERS: PCP Family Medicine; Visit Provider Family Medicine | DX: I48.91 Unspecified atrial fibrillation (principal) | CPT/HCPCS: 85610 ==

== ENCOUNTER 2025-02-07 18:27 | Emergency (ER) | payer MEDICARE, OTHER, SELFPAY ==
[2025-02-07 18:28] VITALS: BP 170/103; PULSE 107; TEMP 36.4; O2SAT 95; BMI 25.9
--- NOTE | 2025-02-07 18:37 | CTR_ITS ---
PROCEDURE INFORMATION: Exam: CT Maxillofacial Without Contrast Exam date and time: 02/07/2025 6:43 PM Age: 74 years old Clinical indication: Injury or trauma; Fall; Bleeding/hemorrhage and blunt trauma (contusions or hematomas); Nose; Additional info: Fall/trauma TECHNIQUE: Imaging protocol: Computed tomography of the face without contrast. Radiation optimization: All CT scans at this facility use at least one of these dose optimization techniques: automated exposure control; mA and/or kV adjustment per patient size (includes targeted exams where dose is matched to clinical indication); or iterative reconstruction. COMPARISON: CT head wo con* [id number] 02/07/2025 6:43 PM RADIATION DOSE METRICS: Total DLP (mGy-cm): 600.1 FINDINGS: Paranasal sinuses: Severe chronic partially calcified left maxillary sinus disease with possible antrochoanal polyp. Nonemergent ENT consultation may be helpful. Orbital cavities: Orbits are normal. Globes are unremarkable. Teeth: The patient is edentulous. Bones: Complete opacification of the left maxillary cavity which could be secondary to polypoid disease versus other benign or malignant lesion. Displaced left nasal fracture with soft tissue swelling over the left nose. Soft tissues: Soft tissue swelling and/or hematoma over the left mandible. Soft tissue swelling and/or hematoma over the left cheek. CT/CT facial bones wo con* [id number] IMPRESSION: 1. 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 Nonemergent ENT consultation may be helpful. 2. Complete opacification of the left maxillary cavity which could be secondary to polypoid disease versus other benign or malignant lesion. 3. Soft tissue swelling and/or hematoma over the left mandible. 4. Soft tissue swelling and/or hematoma over the left cheek. 5. Displaced left nasal fracture with soft tissue swelling over the left nose. Fracture involving the anterior wall of the left maxillary sinus.
--- NOTE | 2025-02-07 18:38 | CTR_ITS ---
PROCEDURE INFORMATION: Exam: CT Head Without Contrast Exam date and time: 02/07/2025 6:43 PM Age: 74 years old Clinical indication: Injury or trauma; Fall; Bleeding/hemorrhage and blunt trauma (contusions or hematomas); Without loss of consciousness; Additional info: Trauma/fall TECHNIQUE: Imaging protocol: Computed tomography of the head without contrast. Radiation optimization: All CT scans at this facility use at least one of these dose optimization techniques: automated exposure control; mA and/or kV adjustment per patient size (includes targeted exams where dose is matched to clinical indication); or iterative reconstruction. COMPARISON: CT facial bones wo con* [id number] 02/07/2025 6:43 PM RADIATION DOSE METRICS: Total DLP (mGy-cm): 1071.1 FINDINGS: Brain: Mild cerebral atrophy and ischemic leukoencephalopathy. Cerebral ventricles: No ventriculomegaly. Paranasal sinuses: Visualized sinuses are unremarkable. No fluid levels. Mastoid air cells: Visualized mastoid air cells are well aerated. Bones: Unremarkable. No acute fracture. Soft tissues: Unremarkable. CT/CT head wo con* [id number] IMPRESSION: 1. No acute intracranial abnormality. 2. Please see CT face for face details.
--- NOTE | 2025-02-07 18:38 | CTR_ITS ---
PROCEDURE INFORMATION: Exam: CT Cervical Spine Without Contrast Exam date and time: 02/07/2025 6:43 PM Age: 74 years old Clinical indication: Injury or trauma; Fall; Blunt trauma TECHNIQUE: Imaging protocol: Computed tomography of the cervical spine without contrast. Radiation optimization: All CT scans at this facility use at least one of these dose optimization techniques: automated exposure control; mA and/or kV adjustment per patient size (includes targeted exams where dose is matched to clinical indication); or iterative reconstruction. COMPARISON: CT neck w con* [id number] 05/11/2022 2:09 PM RADIATION DOSE METRICS: Total DLP (mGy-cm): 159.9 FINDINGS: Bones: Moderate multilevel spine degenerative changes including degenerative disc disease, spondylosis and facet degenerative changes. Levoscoliosis. Multilevel bilateral foraminal stenosis. Salivary glands: Bilateral parotid gland calcifications consistent with sialolithiasis. Lungs: Lung apices are normal. Soft tissues: Unremarkable. CT/CT cervical spin wo con* [id number] IMPRESSION: No acute findings.
--- NOTE | 2025-02-07 18:41 | ED_ITS ---
HPI - Head Injury 2 General: Chief complaint: Head Injury Stated complaint: Fell on face and hit her head Time Seen by Provider: 02/07/25 18:29 Source: patient Mode of arrival: wheelchair Limitations: no limitations History of Present Illness: Patient is a very nice 74-year-old female here following a facial injury that she sustained just prior to arrival after accidentally tripping and falling and striking her face. She has active epistaxis upon arrival. No LOC. She is not complaining of neck pain. Patient does take warfarin. Her last INR check was january and was therapeutic. She denies any other injury sustained during the fall. MD Complaint: head injury and other (facial injury) Onset (ago): hour(s) Mechanism of Injury: fall Place: home Loss of Consciousness: no Location of injury: face Severity: moderate Radiation: none Other Injuries: none Context: on warfarin (last INR normal january) Associated symptoms: Reports no associated symptoms; Deny neck pain or syncope Related Data Previous Rx's ?Medication ?Instructions ?Recorded metoprolol succinate 100 mg See Rx Instructions .Route 05/24/24 tablet,extended release 24 hr .COMPLEX #180 tabs benazepril 10 mg tablet See Rx Instructions .Route 1 .COMPLEX #180 tabs warfarin 2 mg tablet See Rx Instructions .Route 1 11/14/23 .COMPLEX #180 tabs atorvastatin 20 mg tablet See Rx Instructions .Route 1 11/24/23 .COMPLEX #90 tabs potassium chloride 10 mEq See Rx Instructions .Route 1 11/24/23 tablet,extended release .COMPLEX #180 tabs promethazine-DM 6.25 mg-15 mg/5 mL 5 ml PO Q6H PRN cou gh #118 mL 11/13/24 oral syrup diltiazem HCl 60 mg tablet See Rx Instructions .Route 11/26/24 .COMPLEX #270 tabs furosemide 40 mg tablet See Rx Instructions .Route 0 12/18/24 .COMPLEX #180 tabs Allergies Allergy/AdvReac Type Severity Reaction Status Date / Time Sulfa (Sulfonamide Allergy Unknown Verified 02/07/25 18:36 Antibiotics) Review of Systems 2 Eyes: Denies: change in vision, blurry vision, photophobia, eye discharge, floaters or seeing flashes ENMT: Reports: nasal discharge (bleeding) and sinus pain; Denies: throat pain, odynophagia, ear or mastoid pain or ear discharge Card: Denies: chest pain, palpitations, lightheadedness, syncope or pre- syncope Resp: Denies: dyspnea or pain on inspiration GI: Denies: abdominal pain : Denies: flank pain or hematuria Musc: Denies: neck pain, back pain, extremity pain or joint pain Neuro: Denies: headache(s), numbness in extremities, weakness in extremities, sensory changes or dizziness PFSH ED 2 PFSH: Medical History Leiomyoma Mesenteric artery stenosis Diabetes mellitus Anticoagulation management encounter UTI (urinary tract infection) Enteritis Acute dehydration Atrial fibrillation with RVR Chest pain Dyspnea Atrial fibrillation Congestive heart failure Surgical History Hx of inguinal hernia surgery Social History Smoking and tobacco/nicotine status: unknown if used tobacco/nicotine Alcohol intake: never Substance/Drug Use: never Physical Exam 2 Const: COMMON NORMALS: no acute distress, average body habitus, patient oriented x3, no limitations, healthy appearing, alert and well nourished G ENERAL APPEARANCE: cooperative ORIENTATION/CONSCIOUSNESS: Yes awake, Yes oriented to person, Yes oriented to place and Yes oriented to time HENMT: COMMON NORMALS: normocephalic, atraumatic and TM's normal bilaterally HEAD & SCALP: normal to inspection, normocephalic and atraumatic; no Shaw's sign, no hematoma and no raccoon eyes FACE & SINUS: edema (nose/L maxillary sinus), Facial tenderness on exam of face and sinuses and other (facial contusion/ecchymosis nose and L maxillary sinus) NOSE: Normal septum present and Epistaxis present (large clot removed upon initial assessment) on the left TYMPANIC MEMBRANE: TM's normal bilaterally MOUTH: other (no intraoral injuries noted) Eye: COMMON NORMALS: Equal, round and reactive pupils present and EOMs intact bilaterally GENERAL EYE: appearance normal, both eyes and all related structures and normal light reflex PUPIL: Yes Equal, round and reactive pupils present DIRECT OPHTHALMOSCOPY: Yes normal light reflex Neck/C-Spine: COMMON NORMALS: full ROM GENERAL: Yes normal visual inspection CERVICAL SPINE: Yes cervical ROM normal, No pain with cervical ROM, No Cervical spine tenderness, No step off deformity and No Paracervical muscle tenderness Chest: COMMONS NORMALS: normal inspection of the chest and normal palpation of entire chest wall Resp: COMMON NORMALS: normal respiratory effort and clear to auscultation bilaterally AUSCULTATION: clear to auscultation bilaterally Cardio: COMMON NORMALS: regular rate and regular rhythm RATE: regular rate RHYTHM: regular rhythm GI: COMMON NORMALS: Normal to inspection, nondistended, normoactive bowel sounds present, Soft to palpation, non-tender, No hepatosplenomegaly present and no masses INSPECTION: Yes normal to inspection and No abdominal wall ecchymosis AUSCULTATION: Yes normoactive bowel sounds PALPATION: Yes Soft to palpation and Yes No hepatosplenomegaly present Back/Pelvis: COMMON NORMALS: thoracic and lumbar spine normal to inspection, no thoracic nor lumbar tenderness and thoraco-lumbar ROM normal Extremity: COMMON NORMALS: normal to inspection and full ROM GENERAL: Yes normal exam except as noted Neuro: YEISON COMA SCALE: document GCS findings Yeison coma scale eye opening: Spontaneous Dewitt coma scale verbal response: Orientated Yeison coma scale motor response: Obey commands Yeison coma scale total score: 15 COMMON NORMALS: patient oriented x3, CN's II-XII intact bilaterally, moves all extremities, no focal motor deficits, no sensory deficits noted and gait normal SENSORIUM/ORIENTATION: Yes alert, Yes oriented to person, Yes oriented to place and Yes oriented to time SPEECH: speech normal GAIT: Yes Normal gait present Skin: COMMON NORMALS: no rashes or lesions noted GENERAL SKIN EXAM: no rashes or lesions noted TRAUMA: no lacerations or abrasions Course 2 Vital Signs: Vital signs: Vital Signs Temperature 97.5 F L 02/07/25 18:28 Pulse Rate 100 02/07/25 19:33 Respiratory Rate 17 02/07/25 19:33 Blood Pressure 176/94 02/07/25 19:33 Pulse Oximetry 91 02/07/25 19:33 Oxygen Delivery Me thod Room Air 02/07/25 19:33 MDM - Head Injury Medcial Decision Making Patient is a very nice 74-year-old male who presents to ED today following a trip and fall. CT scans of her head, cervical spine, and facial bones were obtained. Her cervical spine and head showing no acute abnormalities. On her facial bone CT she does have a displaced left nasal fracture as well as a fracture involving her anterior wall of her left maxillary sinus. She did arrive with acute epistaxis. This was managed with Afrin and nasal clamp. Avoided any type of intranasal balloon hemostasis given her known facial fractures. Blood work is unremarkable. She is therapeutic on her INR. She states she takes this for atrial fibrillation. Reports previous history of stroke. Would be hesitant about stopping this. Ultimately we do have bleeding subsided at time of discharge. Strict precautions for home if bleeding resumes. She states she would like to follow-up with her primary care provider tomorrow if possible-she will reach out to his office. Case management referral placed for ENT for follow-up. Return to ED precautions discussed. Medical Records I reviewed the patient's medical records. Lab Data I reviewed the patient's lab results. 02/07/25 19:30 02/07/25 19:[address] 02/07/25 18:37 IMPRESSION: 1. 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 Nonemergent ENT consultation may be helpful. 2. Complete opacification of the left maxillary cavity which could be secondary to polypoid disease versus other benign or malignant lesion. 3. Soft tissue swelling and/or hematoma over the left mandible. 4. Soft tissue swelling and/or hematoma over the left cheek. 5. Displaced left nasal fracture with soft tissue swelling over the left nose. Fracture involving the anterior wall of the left maxillary sinus. Cervical Spine CT 02/07/25 18:38 IMPRESSION: No acute findings. Head CT 02/07/25 18:38 IMPRESSION: 1. No acute intracranial abnormality. 2. Please see CT face for face details. ADDENDUM: 02/07/25 191 Impression: 3. Left maxillary sinus and left nasal cavity pathology dictated on CT face report. Laboratory Results WBC 10.40 10^3/uL (3.29-11.43) 02/07/25 19: RBC 3.88 10^6/uL (3.85-5.65) 02/07/25 19:30 Hgb 11.50 g/dL (11.27-16.99) 02/07/25 19: Hct 37.6 % (36-47) 02/07/25 19: MCV 96.9 fl (85-98) 02/07/25 19:30 MCH 29.6 pg (27-33) 02/07/25 19: MCHC 30.6 g/dL (30-55) 02/07/25 19: RDW 13.0 % (12.1-15.1) 02/07/25 19: Plt Count 161 10^3/cmm (157-399) 02/07/25 19: MPV 10.2 fL (7.4-10.4) 02/07/25 19: Neut % (Auto) 81.5 % 02/07/25 19: Lymph % (Auto) 8.5 % 02/07/25 19: [place] % (Auto) 8.0 % 02/07/25 19: Eos % (Auto) 0.9 % 02/07/25: Baso % (Auto) 0.4 % 02/07/25: Neut # (Auto) 8.49 10^3/uL (1.8-7.7) H 02/07/25 19: Lymph # (Auto) 0.9 10^3/uL (0.8-4.8) 02/07/25 19: [place] # (Auto) 0.8 10^3/uL (0.2-0.9) 02/07/25 19: Eos # (Auto) 0.1 10^3/uL (0.0-0.8) 02/07/25 19: Baso # (Auto) 0.0 10^3/uL (0.0-0.1) 02/07/25: Nucleated RBC % (auto) 0 % 02/07/25: Nucleated RBCs # 0.0 /100WBC 02/07/25 19: PT 24.30 SECONDS (12.1-14.9) H 02/07/25 19: INR 2.05 (0.8-1.2) H 02/07/25 19: APTT 27.7 SECONDS (23.9-36.7) 02/07/25 19:30 Sodium 137 mmol/L (136-145) 02/07/25 19: Potassium 4.5 mmol/L (3.5-5.1) 02/07/25 19: Chloride 97 mmol/L (98-107) L 02/07/25 19:30 Carbon Dioxide 25 mmol/L (22-29) 02/07/25 19:30 Anion Gap 19.5 (5-19) H 02/07/25 19:30 BUN 23 mg/dL (8-23) 02/07/25 19:30 Creatinine 1.3 mg/dL (0.5-0.9) H 02/07/25 19:30 GFR Calculation Not Reportable 02/07/25 19:30 Glucose 221 mg/dL (65-115) H 02/07/25 19:30 Calculated Osmolality 294 mOsm/kg (285-295) 02/07/25 19:30 Calcium 8.7 mg/dL (8.5-10.5) 02/07/25 19:30 Total Bilirubin 0.4 mg/dL (0.15-1.2) 02/07/25 19:30 AST 25 U/L (0-32) 02/07/25 19:30 ALT 20 U/L (0-33) 02/07/25 19:30 Alkaline Phosphatase 96 U/L (35-105) 02/07/25 19:30 Total Protein 6.7 g/dL (6.6-8.7) 02/07/25 19:30 Albumin 4.1 g/dL (3.5-5.2) 02/07/25 19:30 Globulin 2.6 g/dL (1.3-4.6) 02/07/25 19:30 All radiology interpretation(s) finalized by discharge Discharge Plan Discharge Patient Disposition: Home Clinical Impression: Fall on same level from tripping Closed fracture of left maxillary sinus Qualifiers: Encounter type: initial encounter Qualified Code(s): S02.40DA - Maxillary fracture, left side, initial encounter for closed fracture Fracture of nasal bone Qualifiers: Encounter type: initial encounter Fracture type: closed Qualified Code(s): S 02.2XXA - Fracture of nasal bones, initial encounter for closed fracture Condition: Stable Prescriptions: No Action metoprolol succinate 100 mg tablet extended release 24 hr See Rx Instructions .ROUTE .COMPLEX Qty: 180 3RF Dose Instruction: TAKE 1 TABLET BY MOUTH TWICE A DAY Rx Instructions: TAKE 1 TABLET BY MOUTH TWICE A DAY benazepril 10 mg tablet See Rx Instructions .ROUTE .COMPLEX Qty: 180 3RF Dose Instruction: TAKE 1 TABLET BY MOUTH TWICE A DAY Rx Instructions: TAKE 1 TABLET BY MOUTH TWICE A DAY warfarin 2 mg tablet See Rx Instructions .ROUTE .COMPLEX Qty: 180 3RF Dose Instruction: TAKE 1 TABLET BY MOUTH TWICE A DAY Rx Instructions: TAKE 1 TABLET BY MOUTH TWICE A DAY atorvastatin 20 mg tablet See Rx Instructions .ROUTE .COMPLEX Qty: 90 3RF Dose Instruction: TAKE 1 TABLET BY MOUTH EVERY DAY Rx Instructions: TAKE 1 TABLET BY MOUTH EVERY DAY potassium chloride 10 mEq tablet extended release See Rx Instructions .ROUTE .COMPLEX Qty: 180 2RF Dose Instruction: TAKE 1 TABLET BY MOUTH TWICE A DAY Rx Instructions: TAKE 1 TABLET BY MOUTH TWICE A DAY promethazine-DM 6.25-15 mg/5 mL syrup 5 ml PO Q6H PRN (Reason: cough) Qty: 118 2RF diltiazem HCl 60 mg tablet See Rx Instructions .ROUTE .COMPLEX Qty: 270 3RF Dose Instruction: TAKE 1 TABLET BY MOUTH THREE TIMES A DAY FOR 30 DAYS Rx Instructions: TAKE 1 TABLET BY MOUTH THREE TIMES A DAY FOR 30 DAYS furosemide 40 mg tablet See Rx Instructions .ROUTE .COMPLEX Qty: 180 8RF Dose Instruction: TAKE 1 TABLET BY MOUTH TWICE A DAY FOR EDEMA Rx Instructions: TAKE 1 TABLET BY MOUTH TWICE A DAY FOR EDEMA Discharge Orders: Discharge ED (Routine); Ordered 02/07/25 Ordered By: Cindi Jaquez Referrals: Francesco Parr MD [Primary Care Provider] - Patient Instructions: Facial Fracture (DC) Activity Restrictions/Additional Instructions: As we discussed, your facial bone CT scan here showing a fracture to your left maxillary sinus as well as a nasal bone fracture. Bleeding has been controlled here. You were sent home with Afrin and nasal clamp with instructions to use these in case bleeding resumes. We also discussed applying ice to your nose and sinus. We spoke thoroughly about not bending over, sleeping upright, avoiding coughing, sneezing with your mouth open if feasible, avoid straining. You have indicated you would like to follow-up with your primary care provider tomorrow if he is able to see you. I have placed a case management referral to get you set up with ENT. As we discussed if you cannot control bleeding at home you may return to the emergency department. Print Language: Danish Coding Level of Care Code ED [employer]liance [employer] Technician for Destiny Rascon
[2025-02-07 18:59] VITALS: BP 179/75; PULSE 98; RESP 17; O2SAT 94
[2025-02-07 19:33] VITALS: BP 176/94; PULSE 100; RESP 17; O2SAT 91
[2025-02-07] MEDS: oxymetazoline 0.05% Nasal Spray 15 mL 2 SPRAY NOSTRIL-L (19:33)
[2025-02-07 19:36] LABS: Basophils % 0.4 %; Eosinophils # 0.1 10^3/uL (0.0-0.8); Eosinophils % 0.9 %; Hematocrit 37.6 % (36-47); Lymphocytes # 0.9 10^3/uL (0.8-4.8); Lymphocytes % 8.5 %; Mean Corpuscular HGB Conc 30.6 g/dL (30-55); Mean Corpuscular Hemoglobin 29.6 pg (27-33); Mean Corpuscular Volume 96.9 fl (85-98); Mean Platelet Volume 10.2 fL (7.4-10.4); Monocytes # 0.8 10^3/uL (0.2-0.9); Neutrophils # 8.49 10^3/uL (1.8-7.7); Neutrophils % 81.5 %; Nucleated Red Blood Cells % 0 %; Platelet Count 161 10^3/cmm (157-399); Red Blood Count 3.88 10^6/uL (3.85-5.65)
[2025-02-07] MEDS: metoprolol tartrate 50 mg Tablet PO (19:47)
[2025-02-07] MEDS: lisinopril 10 mg Tablet PO (19:47)
[2025-02-07 19:50] LABS: INR 2.05 (0.8-1.2)
[2025-02-07 19:51] LABS: Partial Thromboplastin Time 27.7 SECONDS (23.9-36.7)
[2025-02-07 19:54] LABS: Alanine Aminotransferase 20 U/L (0-33); Albumin Level 4.1 g/dL (3.5-5.2); Alkaline Phosphatase 96 U/L (35-105); Aspartate Amino Transferase 25 U/L (0-32); Blood Urea Nitrogen 23 mg/dL (8-23); Calcium 8.7 mg/dL (8.5-10.5); Carbon Dioxide 25 mmol/L (22-29); Chloride 97 mmol/L (98-107); Creatinine Clr Calc Pharmacy 29.8916; Globulin 2.6 g/dL (1.3-4.6); Glucose 221 mg/dL (65-115); Osmolality Calculated 294 mOsm/kg (285-295); Sodium 137 mmol/L (136-145); Total Bilirubin 0.4 mg/dL (0.15-1.2); Total Protein 6.7 g/dL (6.6-8.7)
[2025-02-07 19:57] LABS: Anion Gap 19.5 (5-19); Potassium 4.5 mmol/L (3.5-5.1)
[2025-02-07 21:07] VITALS: BP 187/102; PULSE 88; RESP 18; O2SAT 98
--- NOTE | 2025-02-08 07:28 | DCPLANNER ---
faxed ENT referral packet to ENT Josseline Barraza
== END 2025-02-07 21:14 | disposition home or self-care (01) ==
PROVIDERS: Emergency Medicine; Emergency Provider Physician Assistant; PCP Family Medicine
DX: S02.40DA Maxillary fracture, left side, initial encounter for closed fracture (principal); S02.2XXA Fracture of nasal bones, initial encounter for closed fracture; W01.0XXA Fall on same level from slipping, tripping and stumbling without subsequent striking against object, initial encounter; Z79.01 Long term (current) use of anticoagulants; E11.9 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 without complications; I50.9 Heart failure, unspecified
CPT/HCPCS: 36415; 70450; 70486; 72125; 80053; 85025; 85610; 85730; 99284; J9999

== ENCOUNTER → 2025-03-05 09:20 | Outpatient (BNVA) | payer MEDICARE, OTHER, SELFPAY | PROVIDERS: PCP Family Medicine; Visit Provider Family Medicine | DX: Z51.81 Encounter for therapeutic drug level monitoring (principal); Z79.01 Long term (current) use of anticoagulants | CPT/HCPCS: 85610 ==

== ENCOUNTER → 2025-04-02 09:56 | Outpatient (BNVA) | payer MEDICARE, OTHER, SELFPAY | PROVIDERS: PCP Family Medicine; Visit Provider Family Medicine | DX: E11.9 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 without complications (principal); I50.9 Heart failure, unspecified; I48.91 Unspecified atrial fibrillation; R53.83 Other fatigue; Z51.81 Encounter for therapeutic drug level monitoring; Z79.01 Long term (current) use of anticoagulants | CPT/HCPCS: 80053; 84443; 85025; 85610 ==

== ENCOUNTER → 2025-05-21 09:42 | Outpatient (BNVA) | payer MEDICARE, OTHER, SELFPAY | PROVIDERS: PCP Family Medicine; Visit Provider Family Medicine | DX: I50.9 Heart failure, unspecified (principal); I48.91 Unspecified atrial fibrillation; E11.9 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 without complications; Z51.81 Encounter for therapeutic drug level monitoring; Z79.01 Long term (current) use of anticoagulants; R53.83 Other fatigue | CPT/HCPCS: 80053; 83036; 85025; 85610 ==

== ENCOUNTER → 2025-06-10 09:58 | Outpatient (BNVA) | payer MEDICARE, OTHER, SELFPAY | PROVIDERS: PCP Family Medicine; Visit Provider Family Medicine | DX: I50.9 Heart failure, unspecified (principal) | CPT/HCPCS: 80048 ==

== ENCOUNTER → 2025-07-25 10:10 | Outpatient (BNVA) | payer MEDICARE, OTHER, SELFPAY | PROVIDERS: PCP Family Medicine; Visit Provider Family Medicine | DX: Z51.81 Encounter for therapeutic drug level monitoring (principal); Z79.01 Long term (current) use of anticoagulants | CPT/HCPCS: 85610 ==

== ENCOUNTER → 2025-08-21 09:14 | Outpatient (BNVA) | payer MEDICARE, OTHER, SELFPAY | PROVIDERS: PCP Family Medicine; Visit Provider Family Medicine | DX: E11.9 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 without complications (principal); I50.9 Heart failure, unspecified; I48.91 Unspecified atrial fibrillation; Z51.81 Encounter for therapeutic drug level monitoring; Z79.01 Long term (current) use of anticoagulants | CPT/HCPCS: 80053; 80061; 83036; 85025; 85610 ==

== ENCOUNTER → 2025-09-18 09:43 | Outpatient (BNVA) | payer MEDICARE, OTHER, SELFPAY | PROVIDERS: PCP Family Medicine; Visit Provider Family Medicine | DX: R30.0 Dysuria (principal); Z51.81 Encounter for therapeutic drug level monitoring; Z79.01 Long term (current) use of anticoagulants | CPT/HCPCS: 81000; 85610; 87086 ==

== ENCOUNTER 2025-09-23 16:32 | Inpatient (IN) | payer MEDICARE, OTHER, SELFPAY ==
[2025-09-23 16:36] VITALS: BP 160/83; PULSE 66; RESP 16; TEMP 36.7; O2SAT 98; BMI 24.7
--- NOTE | 2025-09-23 16:41 | XRR_ITS ---
PROCEDURE INFORMATION: Exam: XR Right Knee Exam date and time: 09/23/2025 5:39 PM Age: 75 years old Clinical indication: Injury or trauma; Fall; Blunt trauma; Knee; Right; Additional info: Fall, knee pain TECHNIQUE: Imaging protocol: Radiologic exam of the right knee. Views: 3 views. COMPARISON: CR XR femur RT min 2V* [id number] 09/23/2025 5:33 PM FINDINGS: Bones/joints: Mild narrowing of the medial compartment of the knee present no. There is no acute fracture or dislocation. No joint effusion present Soft tissues: Vascular calcification present soft tissues. XR/XR knee RT 3V* [id number] IMPRESSION: No acute fracture or dislocation
--- NOTE | 2025-09-23 17:25 | XRR_ITS ---
PROCEDURE INFORMATION: Exam: XR Right Femur Exam date and time: 09/23/2025 5:33 PM Age: 75 years old Clinical indication: Injury or trauma; Fall; Blunt trauma; Thigh or upper leg; Right TECHNIQUE: Imaging protocol: Radiologic exam of the right femur. Views: 2 views. COMPARISON: CT abdomen pelvis w con* [id number] 07/19/2024 3:05 PM FINDINGS: Bones/joints: The subacute intertrochanteric fracture of the right femur present Soft tissues: Vascular calcification present soft tissues. XR/XR femur RT min 2V* [id number] IMPRESSION: Acute intertrochanteric fracture right femur
--- NOTE | 2025-09-23 17:26 | W.ED.LOWEXIN ---
Documented by User: CAITLIN Villaseñor 09/23/25 18:28 HPI - Extremity Injury (Lower) General: Chief Complaint: Extremity Injury, Lower Stated Complaint: R knee pain, fall Time Seen by Provider: 09/23/25 17:17 Source: patient and family Mode of arrival: wheelchair Limitations: no limitations History of Present Illness: Patient is in a 75-year-old female presents to ED today with complaint of an injury to her right lower extremity that she sustained after she accidentally tripped over her dog. Patient feels like her right knee twisted and is having most of her discomfort here. She states she is not having any pain to her hip. She states she cannot bear weight secondary to pain in her knee. She denies numbness, tingling, loss of sensation to the leg. She denies any other injury sustained during the fall. She denies striking her head or LOC. No neck or back pain. MD complaint: knee injury Onset (ago): hour(s) Injury: Right: knee Place: home Severity: severe Relieving factors: immobilization Exacerbating factors: weight bearing, movement and palpation Context: fall Associated symptoms: Reports inability to bear weight Other symptoms: none Related Data Previous Rx's ?Medication ?Instructions ?Recorded promethazine-DM 6.25 mg-15 mg/5 mL 5 ml PO Q6H PRN cough #118 mL 11/13/24 oral syrup diltiazem HCl 60 mg tablet See Rx Instructions .Route 11/26/24 .COMPLEX #270 tabs metolazone 5 mg tablet 5 mg PO .COMPLEX #20 tabs 04/18/25 metoprolol succinate 100 mg See Rx Instructions .Route 05/13/25 tablet,extended release 24 hr .COMPLEX #180 tabs potassium chloride 10 mEq See Rx Instructions .Route 06/25/25 tablet,extended release .COMPLEX #180 tabs benazepril 10 mg tablet See Rx Instructions .Route 07/24/25 .COMPLEX #180 tabs furosemide 40 mg tablet See Rx Instructions .Route 08/21/25 .COMPLEX #180 tabs atorvastatin 20 mg tablet See Rx Instructions .Route 09/01/25 .COMPLEX #90 tabs warfarin 2 mg tablet See Rx Instructions .Route 09/10/25 .COMPLEX #180 tabs ciprofloxacin HCl 250 mg tablet 250 mg PO BID #10 tabs 09/18/25 Allergies Allergy/AdvReac Type Severity Reaction Status Date / Time Sulfa (Sulfonamide Allergy Unknown Verified 02/07/25 18:36 Antibiotics) Review of Systems Card: Denies: chest pain Resp: Denies: dyspnea GI: Reports: nausea; Denies: abdominal pain, vomiting or change in bowel habits : Denies: flank pain or hematuria Musc: Reports: joint pain (R knee) and limited range of motion (R knee due to pain); Denies: neck pain, back pain or muscle weakness Neuro: Reports: difficulty walking (due to injury to R LE); Denies: numbness in extremities, weakness in extremities or sensory changes [facility] ED PFSH: Medical History Leiomyoma Mesenteric artery stenosis Diabetes mellitus Anticoagulation management encounter UTI (urinary tract infection) Enteritis Acute dehydration Atrial fibrillation with RVR Chest pain Dyspnea Atrial fibrillation Congestive heart failure Surgical History Hx of inguinal hernia surgery Social History Smoking and tobacco/nicotine status: never used tobacco/nicotine Alcohol intake: never Substance/Drug Use: never Physical Exam Const: COMMON NORMALS: average body habitus, patient oriented x3, no limitations, healthy appearing, alert and well nourished GENERAL APPEARANCE: cooperative and in distress (appears uncomfortable secondary to pain) OTHER: hard to get patient from wheelchair to bed due to significant discomfort; she kept telling me her pain was more in her knee then in her hip but when I was able to get her in bed her leg does appear slightly rotated HENMT: COMMON NORMALS: normocephalic and atraumatic HEAD & SCALP: normal to inspection, normocephalic and atraumatic Neck/C-Spine: COMMON NORMALS: full ROM CERVICAL SPINE: No Cervical spine tenderness Chest: COMMONS NORMALS: normal inspection of the chest and normal palpation of entire chest wall Resp: COMMON NORMALS: normal respiratory effort and clear to auscultation bilaterally AUSCULTATION: clear to auscultation bilaterally Cardio: COMMON NORMALS: regular rate and regular rhythm RATE: regular rate RHYTHM: regular rhythm Back/Pelvis: COMMON NORMALS: thoracic and lumbar spine normal to inspection and no thoracic nor lumbar tenderness Extremity: COMMON NORMALS: capillary refill normal, no clubbing, cyanosis or edema, no calf tenderness and no pedal edema GENERAL: Yes normal exam except as noted RIGHT LOWER EXTREMITY: Yes hip joint, Yes upper leg and Yes knee joint Right knee: Yes palpation (states pain is not bad with palpation-only when she moves it), Yes ROM (significantly limited secondary to pain) and Yes neurovascular exam (normal) OTHER: pt feels like most of her pain is in her knee and does not allow me to perform passive ROM here; she has no tenderness to palpation distal to her knee; she does occassionally grab her mid thigh stating she feels like this radiates from her knee; she tells me her hip doesn't hurt but grimaces quite a bit when I try to perform any type of ROM; extremity is NV intact Neuro: COMMON NORMALS: patient oriented x3, moves all extremities, no focal motor deficits and no sensory deficits noted SENSORIUM/ORIENTATION: Yes alert GAIT: Yes Unable to assess gait Skin: COMMON NORMALS: no rashes or lesions noted GENERAL SKIN EXAM: no rashes or lesions noted TRAUMA: no lacerations or abrasions Course Consultations: Consultation #1: Dr. Bryant-will consult on patient and plan for OR; recommending holding Warfarin-would plan for OR on Tuesday Consultation #2: Dr. Salcido-accepts hospitalization Vital Signs: Vital signs: Vital Signs Temperature 98.0 F 09/23/25 16:36 Pulse Rate 66 09/23/25 16:36 Respiratory Rate 16 09/23/25 18:11 Blood Pressure 180/96 09/23/25 18:26 Pulse Oximetry 99 09/23/25 18:26 Oxygen Delivery Me thod Room Air 09/23/25 16:36 MDM - Extremity Injury (Lower) Medical Decision Making Patient is a very nice 75-year-old female here after she tripped over her dog and landed on her right side. Her main complaint was right knee pain but did have pain more proximal. She was found to have a right intertrochanteric hip fracture. No fracture was noted within the knee. I have consulted with Dr. Bryant who will plan on taking her to surgery on Tuesday. She does take warfarin for atrial fibrillation. INR is currently pending. It was 2.60 days ago through her PCP. We will hold this in preparation for surgery. Spoke to hospitalist Dr. Salcido for admission. Case discussed with Dr. Anne who agrees with care plan. Medical Records I reviewed the patient's medical records. Lab Data Radiology Impressions Knee X-Ray 09/23/25 16:41 IMPRESSION: No acute fracture or dislocation Femur X-Ray 09/23/25 17:25 IMPRESSION: Acute intertrochanteric fracture right femur All radiology interpretation(s) finalized by discharge Discharge Plan Discharge Patient Disposition: Admitted As Inpatient Clinical Impression: Fall on same level from tripping Intertrochanteric fracture of right hip Qualifiers: Encounter type: initial encounter Fracture type: closed Fracture alignment: nondisplaced Qualified Code(s): S72.144A - Nondisplaced intertrochanteric fracture of right femur, initial encounter for closed fracture Condition: Stable Coding Level of Care Code ED Portable Pinch Riveter for Chg Fwd Documented by User: Bebe Anne MD 09/23/25 18:33 HPI - Extremity Injury (Lower) General: Chief Complaint: Extremity Injury, Lower Stated Complaint: R knee pain, fall Time Seen by Provider: 09/23/25 17:17 Related Data Previous Rx's ?Medication ?Instructions ?Recorded promethazine-DM 6.25 mg-15 mg/5 mL 5 ml PO Q6H PRN cough #118 mL 11/13/24 oral syrup diltiazem HCl 60 mg tablet See Rx Instructions .Route 11/26/24 .COMPLEX #270 tabs metolazone 5 mg tablet 5 mg PO .COMPLEX #20 tabs 04/18/25 metoprolol succinate 100 mg See Rx Instructions .Route 05/13/25 tablet,extended release 24 hr .COMPLEX #180 tabs potassium chloride 10 mEq See Rx Instructions .Route 06/25/25 tablet,extended release .COMPLEX #180 tabs benazepril 10 mg tablet See Rx Instructions .Route 07/24/25 .COMPLEX #180 tabs furosemide 40 mg tablet See Rx Instructions .Route 08/21/25 .COMPLEX #180 tabs atorvastatin 20 mg tablet See Rx Instructions .Route 09/01/25 .COMPLEX #90 tabs warfarin 2 mg tablet See Rx Instructions .Route 09/10/25 .COMPLEX #180 tabs ciprofloxacin HCl 250 mg tablet 250 mg PO BID #10 tabs 09/18/25 Allergies Allergy/AdvReac Type Severity Reaction Status Date / Time Sulfa (Sulfonamide Allergy Unknown Verified 02/07/25 18:36 Antibiotics) PFS ED PFSH: Medical History Leiomyoma Mesenteric artery stenosis Diabetes mellitus Anticoagulation management encounter UTI (urinary tract infection) Enteritis Acute dehydration Atrial fibrillation with RVR Chest pain Dyspnea Atrial fibrillation Congestive heart failure Surgical History Hx of inguinal hernia surgery Social History Smoking and tobacco/nicotine status: never used tobacco/nicotine Alcohol intake: never Substance/Drug Use: never Course Vital Signs: Vital signs: Vital Signs Temperature 98.0 F 09/23/25 16:36 Pulse Rate 66 09/23/25 16:36 Respiratory Rate 16 09/23/25 18:11 Blood Pressure 180/96 09/23/25 18:26 Pulse Oximetry 99 09/23/25 18:26 Oxygen Delivery Me thod Room Air 09/23/25 16:36 MDM - Extremity Injury (Lower) Medical Decision Making Patient is a very nice 75-year-old female here after she tripped over her dog and landed on her right side. Her main complaint was right knee pain but did have pain more proximal. She was found to have a right intertrochanteric hip fracture. No fracture was noted within the knee. I have consulted with Dr. Bryant who will plan on taking her to surgery on Tuesday. She does take warfarin for atrial fibrillation. INR is currently pending. It was 2.60 days ago through her PCP. We will hold this in preparation for surgery. Spoke to hospitalist Dr. Salcido for admission. Case discussed with Dr. Anne who agrees with care plan. The case was discussed with the midlevel provider. Evaluation and management service: I agree with the evaluation and management decisions made in this patient's care. Results interpretation: I agree with the study interpretation in this patient's care, I agree with the documentation of the study interpretation. Lab Data Radiology Impressions Knee X-Ray 09/23/25 16:41 IMPRESSION: No acute fracture or dislocation Femur X-Ray 09/23/25 17:25 IMPRESSION: Acute intertrochanteric fracture right femur Discharge Plan Discharge Patient Disposition: Admitted As Inpatient Clinical Impression: Fall on same level from tripping Intertrochanteric fracture of right hip Qualifiers: Encounter type: initial encounter Fracture type: closed Fracture alignment: nondisplaced Qualified Code(s): S72.144A - Nondisplaced intertrochanteric fracture of right femur, initial encounter for closed fracture Condition: Stable Coding Level of Care Code ED Portable Pinch Riveter for Destiny Rascon
--- NOTE | 2025-09-23 18:08 | XRR_ITS ---
PROCEDURE INFORMATION: Exam: XR Pelvis Exam date and time: 09/23/2025 6:14 PM Age: 75 years old Clinical indication: Screening exam; Surgical clearance, right hip fracture; Additional info: Trauma/fall; One view pelvis too please TECHNIQUE: Imaging protocol: Radiologic exam of the pelvis. Views: 1 or 2 view. COMPARISON: CT abdomen pelvis w con* [id number] 07/19/2024 3:05 PM FINDINGS: Bones/joints: There is an acute intertrochanteric fracture of the right femur present. Soft tissues: Unremarkable. XR/XR pelvis 1-2V* [id number] IMPRESSION: Acute intertrochanteric fracture right femur
[2025-09-23 18:11] VITALS: RESP 16; O2SAT 95
[2025-09-23] MEDS: morphine 4 mg/mL SDV 1 mL IM (18:11)
[2025-09-23] MEDS: ondansetron 2 mg/ML SDV 2 mL 4 MG IM (18:12)
--- NOTE | 2025-09-23 18:15 | XRR_ITS ---
PROCEDURE INFORMATION: Exam: XR Chest Exam date and time: 09/23/2025 6:14 PM Age: 75 years old Clinical indication: Pre-operative exam; Respiratory screening exam; Additional info: Admission/surgery TECHNIQUE: Imaging protocol: Radiologic exam of the chest. Views: 1 view. COMPARISON: CR XR chest 1V portable [id number] 07/04/2022 6:19 PM FINDINGS: Lungs: There is no consolidation or significant pleural effusion Pleural spaces: There are no pneumothoraces. Heart/Mediastinum: There are findings of cardiomegaly. Bones/joints: Unremarkable. XR/XR chest 1V portable [id number] IMPRESSION: Mild cardiomegaly.
[2025-09-23 18:26] VITALS: BP 180/96; O2SAT 99
[2025-09-23 18:57] LABS: Hematocrit 40.8 % (36-47); Hemoglobin 13.00 g/dL (11.27-16.99); Mean Corpuscular HGB Conc 31.9 g/dL (30-55); Mean Corpuscular Hemoglobin 29.7 pg (27-33); Mean Corpuscular Volume 93.2 fl (85-98); Nucleated Red Blood Cells % 0 %; Platelet Count 230 10^3/cmm (157-399); Red Blood Count 4.38 10^6/uL (3.85-5.65); White Blood Count 9.85 10^3/uL (3.29-11.43)
[2025-09-23 19:18] LABS: INR 2.24 (0.8-1.2); Prothrombin Time 26.10 SECONDS (12.1-14.9)
[2025-09-23 19:23] LABS: Alanine Aminotransferase 19 U/L (0-33); Albumin Level 4.3 g/dL (3.5-5.2); Alkaline Phosphatase 92 U/L (35-105); Anion Gap 15.5 (5-19); Aspartate Amino Transferase 24 U/L (0-32); Blood Urea Nitrogen 24 mg/dL (8-23); Calcium 8.9 mg/dL (8.5-10.5); Carbon Dioxide 28 mmol/L (22-29); Chloride 97 mmol/L (98-107); Globulin 3.3 g/dL (1.3-4.6); Glucose 227 mg/dL (65-115); Osmolality Calculated 293 mOsm/kg (285-295); Potassium 4.5 mmol/L (3.5-5.1); Sodium 136 mmol/L (136-145); Total Protein 7.6 g/dL (6.6-8.7)
[2025-09-23 19:25] LABS: Glucose Urine UA 2+ (Normal); Nitrate Urine Negative (Negative); Specific Gravity, Urine 1.022 (1.005-1.030)
[2025-09-23 19:30] LABS: Add Urine Microscopic? YES
--- NOTE | 2025-09-23 19:39 | USCV_ITS ---
Peterson Christiane Age: 75 Gender: F : 1950 Exam Date: 09/23/2025 19:44 Ordering Phys: Cruz Katz DO Technologist: AARTI Exam Location: [facility] [place] Indication: ground-level fall today, RIGHT HIP FX. chf, history of HTN BP: 180 / 96 HR: 104 Rhythm: Sinus Technical Quality: Adequate MEASUREMENTS (Male / Female) Normal Values 2D ECHO LV Diastolic Diameter PLAX 5.2 cm 4.2 - 5.9 / 3.9 - 5.3 cm IVS Diastolic Thickness 1.1 cm 0.6 - 1.0 / 0.6 - 0.9 cm IVS Systolic Thickness 1.1 cm LVPW Diastolic Thickness 0.9 cm 0.6 - 1.0 / 0.6 - 0.9 cm LVPW Systolic Thickness 1.1 cm LVOT Diameter 1.9 cm LV Ejection Fraction 2D Teich 29.7 % LV Ejection Fraction MOD 4C 17.5 % LV Ejection Fraction MOD 2C 45.9 % LV Ejection Fraction 2C AL 47.3 % LA Diameter 5.1 cm Aorta at Sinotubular Diameter 2.4 cm IVC Diameter 1.8 cm M-MODE LA Ao Ratio MM 2.5 AV Cusp Separation MM 1.4 cm DOPPLER AV Peak Velocity 120.0 cm/s LVOT Peak Velocity 52.0 cm/s AV Area Cont Eq vti 1.4 cm squared AV Area Cont Eq pk 1.2 cm squared MV Peak Velocity 112.0 cm/s MV Area PHT 4.0 cm squared Mitral E to A Ratio 341.0 TV Peak Velocity 339.0 cm/s TR Peak Velocity 339.0 cm/s TR Peak Gradient 46.0 mmHg TV Peak E Velocity 50.0 cm/s PV Peak Velocity 78.0 cm/s FINDINGS Left Ventricle Diffuse hypokinesia of the left ventricle, more so of the septum and inferior wall. LV ejection fraction around 35- 40%, visual. Right Ventricle Normal right ventricular size. Mildly decreased right ventricular systolic function. Right Atrium Mildly increased right atrial size. Left Atrium Severely increased left atrial volume 70 ml/m squared. IA Septum Appears to be intact Mitral Valve At least moderate eccentric mitral regurgitation Aortic Valve Thickened aortic valve. Tricuspid Valve At least moderate tricuspid valve regurgitation. Estimated pulmonary artery peak systolic pressure of 56 mm of Hg Pulmonic Valve Thickened pulmonic valve. Trace pulmonary valve regurgitation. Pericardium No pericardial effusion. Aorta Normal aortic annulus size. IVC Normal IVC dimension with <50% respiratory change of the inferior vena cava. CONCLUSIONS Diffuse hypokinesia of the left ventricle, more so of the septum and inferior wall. LV ejection fraction around 35- 40%, visual. Normal right ventricular size. Mildly decreased right ventricular systolic function. Mildly increased right atrial size. Severely increased left atrial volume 70 ml/m squared. At least moderate eccentric mitral regurgitation. Thickened aortic valve. At least moderate tricuspid valve regurgitation. Estimated pulmonary artery peak systolic pressure of 56 mm of Hg. Thickened pulmonic valve. Trace pulmonary valve regurgitation. Compared to the study from 02/14/2024 seems to be a slight drop in the LV ejection fraction from 43% to 35-40% Dr Dalila Ponce MD [facility] (Electronically Signed) Final Date: 23 September 2025 22:05 S
--- NOTE | 2025-09-23 19:44 | PM.HP ---
Providers/Chief Complaint Primary Care Provider: Francesco Parr MD Chief Complaint: R knee pain, fall History of Present Illness Christiane Winkler is a 75 year old female Medications/Allergies Home Medications ?Medication ?Instructions ?Recorded ?Confirmed ?Last Taken ?Type promethazine-DM 6.25 mg-15 mg/5 mL 5 ml PO Q6H PRN cough #118 mL 11/13/24 09/18/25 Unknown Rx oral syrup diltiazem HCl 60 mg tablet See Rx Instructions .Route 11/26/24 09/18/25 Unknown Rx .COMPLEX #270 tabs metolazone 5 mg tablet 5 mg PO .COMPLEX #20 tabs 04/18/25 09/18/25 Unknown Rx metoprolol succinate 100 mg See Rx Instructions .Route 05/13/25 09/18/25 Unknown Rx tablet,extended release 24 hr .COMPLEX #180 tabs potassium chloride 10 mEq See Rx Instructions .Route 06/25/25 09/18/25 Unknown Rx tablet,extended release .COMPLEX #180 tabs benazepril 10 mg tablet See Rx Instructions .Route 07/24/25 09/18/25 Unknown Rx .COMPLEX #180 tabs furosemide 40 mg tablet See Rx Instructions .Route 08/21/25 09/18/25 Unknown Rx .COMPLEX #180 tabs atorvastatin 20 mg tablet See Rx Instructions .Route 09/01/25 09/18/25 Unknown Rx .COMPLEX #90 tabs warfarin 2 mg tablet See Rx Instructions .Route 09/10/25 09/18/25 Unknown Rx .COMPLEX #180 tabs ciprofloxacin HCl 250 mg tablet 250 mg PO BID #10 tabs 09/18/25 09/18/25 Unknown Rx Allergies Allergy/AdvReac Type Severity Reaction Status Date / Time Sulfa (Sulfonamide Allergy Unknown Verified 02/07/25 18:36 Antibiotics) PFSH Acute PFSH: Medical History (Updated 09/23/25 @ 18:26 by CAITLIN Villaseñor) Leiomyoma Mesenteric artery stenosis Diabetes mellitus Anticoagulation management encounter UTI (urinary tract infection) Enteritis Acute dehydration Atrial fibrillation with RVR Chest pain Dyspnea Atrial fibrillation Congestive heart failure Surgical History Hx of inguinal hernia surgery Social History Smoking and tobacco/nicotine status: never used tobacco/nicotine Alcohol intake: never Substance/Drug Use: never Vitals/I&O/Wt Last Vital Signs Temp 98.0 F 09/23/25 16:36 Pulse 66 09/23/25 16:36 Resp 16 09/23/25 18:11 BP 180/96 09/23/25 18:26 Pulse Ox 99 09/23/25 18:26 O2 Del Method Room Air 09/23/25 16:36 Weight last 48 hrs Weight 57.606 kg Physical Exam Urinary Catheter Management: Duran: Cath Placed During This Visit: yes Urinary Catheter Date of Insertion: 09/23/25 Urinary Catheter Time of Insertion: 18:57 Data 09/23/25 18:47 09/23/25 18:47 A&P Assessment and plan 1. Intertrochanteric fracture of right hip: START OF MEDICAL REPORT Cruz Katz D.O. Board Certified Internal Medicine Chief Complaint: Status post fall History of Present Illness: The patient is a 75-year-old female who present chief complaint of right hip pain which started after sustaining a fall at approximately 2 PM on the day of admission. The patient states that she fell or tripped over her dog and fell on her right side. She denies any pain or trauma elsewhere on her body. She denies head trauma or loss of consciousness as well. She currently rates her right hip pain a 6 out of 10 and it is most prominent on the right lateral hip. The patient offers no other complaints at this time. She presents for further evaluation I have explained to the patient (if they are coherent, able to comprehend, and/or are communicative) and/or their family member(s), friend(s), guardian(s), and/or other individual(s) present on the patient?s behalf (if present) the patient?s current medical condition, the patient?s current plan of care, and I have answered all questions posed to me. Family History: Diabetes Physical Examination: General: -Alert. -No acute distress. -No dyspnea. -No tachypnea. Head: -Atraumatic. -Normocephalic. Eyes: -Pupils equally round and reactive to light and accommodation. -Extraocular muscles intact. Neurological: -Cranial nerves II-XII intact. Neck: -No jugular venous distention. -No thyromegaly. -No cervical lymphadenopathy. Heart: -Regular rate. -Regular rhythm. -No murmurs. -No gallops. -No rubs. Lungs: -No wheeze. -No rhonchi. -No rales. Abdomen: -Normal bowel sounds in all four quadrants. -No rebound. -No guarding. -No tenderness. Extremities: -2/4 pulse in all four extremities. -No clubbing. -No cyanosis. -No edema. -No calf tenderness present bilaterally. -Negative Monica?s sign bilaterally. Musculoskeletal: -5/5 bilateral upper extremity strength. -5/5 bilateral lower extremity strength. -Sensorium of bilateral upper extremities are equal and intact. -Sensorium of bilateral lower extremities are equal and intact. Additional Details / Additional Findings / Exceptions / Miscellaneous: Pertinent Laboratory Results / Pertinent Radiology Results / Pertinent Diagnostic Results / Pertinent Vital Signs: Blood pressure 180/96, pulse 66, respirations 16, temperature 98?, 9% room air. Creatinine 1.6, INR 2.24 Social History: Caffeine: Coffee Tobacco: Never Alcohol: Denies Pets: Yes + Allergies: Sulfa Code Status: Full Admission Date: 7:41 PM on September 23, 2025 Discharge Date: History of Present Illness / Hospital Course Summary: The patient is a 75-year-old female who present chief complaint of right hip pain which started after sustaining a fall at approximately 2 PM on the day of admission. The patient states that she fell or tripped over her dog and fell on her right side. She denies any pain or trauma elsewhere on her body. She denies head trauma or loss of consciousness as well. She currently rates her right hip pain a 6 out of 10 and it is most prominent on the right lateral hip. The patient offers no other complaints at this time. She presents for further evaluation Surgical History: , right inguinal herniorrhaphy, hiatal herniorrhaphy, query history of cardiac stent placement Assessment / Plan + Medical History: Status post fall with resultant right intertrochanteric fracture. Orthopedic surgery consult. Will provide when necessary analgesia. PT/INR elevated due to use of Coumadin/warfarin for history of atrial fibrillation. Check PTT, EKG, echo card gram. From a risk stratification standpoint, the patient has a history of coronary artery disease, radiographic suggestion of prior [place], history of CHF, last ejection fraction 43%, and atrial fibrillation. From a pulmonary standpoint, the patient denies a history of tobacco abuse and she denies a history of COPD/emphysema, chronic bronchitis, or asthma although she does have previous radiographic suggestion of emphysematous changes. The patient denies a history of adverse reaction to anesthesia. The patient takes a warfarin/Coumadin for her history of atrial for ablation but denies use of antiplatelet agents. Given all the after mentioned factors, the patient is at least moderate risk however there are no absolute contra indications to proceeding with surgical intervention. Will await check of EKG, echocardiogram, and improvement/normalization of PT/INR Atrial fibrillation. Telemetry monitoring Mesenteric artery stenosis Coronary artery disease, status post [place], query history of cardiac stent COPD, not O2 dependent CHF, last ejection fraction 43%. Strict I/O. Daily weight. Check echocardiogram Diabetes. Will check fasting glucose care before meals and at bedtime and provide insulin sliding scale Hyper lipemia Hypertension. We will monitor blood pressure closely Chronic kidney disease, baseline creatinine approximate 1.3. We will monitor creatinine intermittently Generative disc disease Diverticulosis DVT prophylaxis. Bilateral SCD Consultations: Orthopedic surgery Disposition: To be determined + Discharge Diet: 2 g sodium, cardiac, ADA, 2 L fluid restricted, renal Discharge Activity: Discharge Condition: Discharge Medications: Time Spent with Patient: Greater than 30 minutes. Cruz Katz D.O. Board Certified Internal Medicine END OF MEDICAL REPORT PDMP PDMP Reviewed: Not Reviewed Attestations Medical Necessity Statement*: anticipate greater than 48h Coding Level of Care Code Acute Code for Chg Fwd Diagnoses Intertrochanteric fracture of right hip S72.141A
[2025-09-23 20:10] VITALS: BP 172/99
[2025-09-23 20:24] LABS: Partial Thromboplastin Time 27.0 SECONDS (23.9-36.7)
[2025-09-23 20:37] VITALS: BP 178/82; PULSE 78; RESP 17; O2SAT 98
[2025-09-23 20:59] VITALS: BP 145/78; PULSE 98; RESP 16; TEMP 36.7; O2SAT 94
--- NOTE | 2025-09-23 20:59 | ECG_ITS ---
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 [email or web address]
[2025-09-23 21:32] VITALS: BMI 24.7
[2025-09-23] MEDS: HYDROcodone-acetaminophen 5-325 mg Tablet 1 TAB PO (22:11)
[2025-09-23] MEDS: ondansetron 2 mg/ML SDV 2 mL 4 MG IVP (22:12)
[2025-09-24] VITALS (10 sets, daily range): BP systolic 147–176; BP diastolic 66–83; PULSE 91–121; RESP 16–18; TEMP 36.4–37.1; O2SAT 90–95
[2025-09-24] MEDS: ondansetron 2 mg/ML SDV 2 mL 4 MG IVP ×3 (02:25→18:45)
[2025-09-24] MEDS: HYDROcodone-acetaminophen 5-325 mg Tablet 1 TAB PO ×5 (02:26→18:45)
[2025-09-24 05:02] LABS: Hemoglobin 12.20 g/dL (11.27-16.99)
[2025-09-24 05:17] LABS: INR 2.26 (0.8-1.2); Prothrombin Time 26.30 SECONDS (12.1-14.9)
--- NOTE | 2025-09-24 08:24 | PM.CONSULT ---
Providers/Reason For Consult Consulting Physician/Specialty*: Hospitalist Reason for Consult*: Right intertrochanteric hip fracture Attending Physician: Flaco Salcido MD Primary Care Provider: Francesco Parr MD History of Present Illness History of Present Illness Christiane Winkler Patient is a 75-year-old female presents to ED today with complaint of an injury to her right lower extremity that she sustained after she accidentally tripped over her dog. Patient feels like her right knee twisted and is having most of her discomfort here. She states she is not having any pain to her hip. She states she cannot bear weight secondary to pain in her knee. She denies numbness, tingling, loss of sensation to the leg. She denies any other injury sustained during the fall. She denies striking her head or LOC. No neck or back pain. Review of Systems Card: Denies: chest pain Resp: Denies: dyspnea GI: Reports: nausea; Denies: abdominal pain, vomiting or change in bowel habits : Denies: flank pain or hematuria Musc: Reports: joint pain (R knee) and limited range of motion (R knee due to pain); Denies: neck pain, back pain or muscle weakness Neuro: Reports: difficulty walking (due to injury to R LE); Denies: numbness in extremities, weakness in extremities or sensory changes Medications/Allergies Home Medications ?Medication ?Instructions ?Recorded ?Confirmed ?Last Taken ?Type promethazine-DM 6.25 mg-15 mg/5 mL 5 ml PO Q6H PRN cough #118 mL 11/13/24 09/18/25 Unknown Rx oral syrup diltiazem HCl 60 mg tablet See Rx Instructions .Route 11/26/24 09/18/25 Unknown Rx .COMPLEX #270 tabs metolazone 5 mg tablet 5 mg PO .COMPLEX #20 tabs 04/18/25 09/18/25 Unknown Rx metoprolol succinate 100 mg See Rx Instructions .Route 05/13/25 09/18/25 Unknown Rx tablet,extended release 24 hr .COMPLEX #180 tabs potassium chloride 10 mEq See Rx Instructions .Route 06/25/25 09/18/25 Unknown Rx tablet,extended release .COMPLEX #180 tabs benazepril 10 mg tablet See Rx Instructions .Route 07/24/25 09/18/25 Unknown Rx .COMPLEX #180 tabs furosemide 40 mg tablet See Rx Instructions .Route 08/21/25 09/18/25 Unknown Rx .COMPLEX #180 tabs atorvastatin 20 mg tablet See Rx Instructions .Route 09/01/25 09/18/25 Unknown Rx .COMPLEX #90 tabs warfarin 2 mg tablet See Rx Instructions .Route 09/10/25 09/18/25 Unknown Rx .COMPLEX #180 tabs ciprofloxacin HCl 250 mg tablet 250 mg PO BID #10 tabs 09/18/25 09/18/25 Unknown Rx Allergies Allergy/AdvReac Type Severity Reaction Status Date / Time Sulfa (Sulfonamide Allergy Unknown Verified 02/07/25 18:36 Antibiotics) Current Medications Generic Name Dose Route Start Last Admin Trade Name Freq PRN Reason Stop Dose Admin Hydrocodone Bitart/Acetaminophen 1 tab 09/23/25 20:59 09/24/25 06:56 Hydrocodone-Acetaminophen 5-325 Mg Tablet PO 1 tab Q4H PRN Administration MODERATE TO SEVERE PAIN Insulin Human Lispro 0 unit 09/23/25 21:00 09/23/25 22:11 Insulin Lispro 100 Unit/1 Ml SUBCUT Not Given BEDTIME JUVENAL Protocol Ondansetron HCl 4 mg 09/23/25 20:59 09/24/25 02:25 Ondansetron 2 Mg/Ml Sdv 2 Ml IVP 4 mg Q4H PRN Administration vomiting, or N/V if npo PFSH Acute PFSH: Medical History (Updated 09/23/25 @ 18:26 by CAITLIN Villaseñor) Leiomyoma Mesenteric artery stenosis Diabetes mellitus Anticoagulation management encounter UTI (urinary tract infection) Enteritis Acute dehydration Atrial fibrillation with RVR Chest pain Dyspnea Atrial fibrillation Congestive heart failure Surgical History Hx of inguinal hernia surgery Social History Smoking and tobacco/nicotine status: never used tobacco/nicotine Alcohol intake: never Substance/Drug Use: never Vitals/I&O/Wt Last Vital Signs Temp 98.1 F 09/24/25 07:21 Pulse 98 09/24/25 07:21 Resp 16 09/24/25 07:21 BP 176/77 09/24/25 07:21 Pulse Ox 94 09/24/25 07:21 O2 Del Method Room Air 09/24/25 07:21 09/23/25 09/24/25 09/24/25 22:59 06:59 14:59 Output Total 100 / 100 400 / 500 Balance -100 / -100 -400 / -500 Weight last 48 hrs Weight 131 lb Weight 127 lb Weight 127 lb Physical Exam Narrative: Alert and oriented x 3 Head is normocephalic atraumatic Respirations are intact No evidence of any rashes or infection 5/5 strength in bilateral upper and lower extremities Sensation intact in all extremities Right leg shortened externally rotated Urinary Catheter Management: Duran: Cath Placed During This Visit: yes Reason for Continuing Indwelling Catheter: Required Immobilization for Trauma or Surgery or Anesthesia Urinary Catheter Date of Insertion: 09/23/25 Urinary Catheter Time of Insertion: 18:57 Data 09/24/25 04:31 09/23/25 18:47 A&P Assessment and plan 1. Intertrochanteric fracture of right hip: Right hip nail tomorrow N.p.o. after midnight PDMP PDMP Reviewed: Not Reviewed Consult Attestations Medical Necessity Statement: Per primary service Coding Level of Care Code Acute Code for [facility] Diagnoses Intertrochanteric fracture of right hip S72.141A
--- NOTE | 2025-09-24 09:21 | P.PN_ITS ---
Subjective 2 Subjective: Patient is seen this morning the company of the in the medical floor. She reports no new complaints. She is awaiting possible orthopedic surgery by tomorrow. She reports fair control of her pain so far. Vitals/I&O/Wt Last Vital Signs Temp 98.1 F 09/24/25 07:21 Pulse 98 09/24/25 07:21 Resp 16 09/24/25 07:21 BP 176/77 09/24/25 07:21 Pulse Ox 94 09/24/25 07:21 O2 Del Method Room Air 09/24/25 07:21 09/23/25 09/24/25 09/24/25 22:59 06:59 14:59 Output Total 100 / 100 400 / 500 Balance -100 / -100 -400 / -500 Weight last 48 hrs Weight 59.421 kg Weight 57.606 kg Weight 57.606 kg Physical Exam 2 Narrative: General: Awake and alert. Cooperative. Chest/Resp: Normal respiratory chest movts; no obvious respiratory distress. CVS: Rhythm: Regular heart rate and rhythm. GI: Non-distended; No obvious organomegaly. Extremities: No obvious pitting pedal edema. Skin: No obvious new rashes or new skin lesions. Urinary Catheter Management: Duran: Cath Placed During This Visit: yes Reason for Continuing Indwelling Catheter: Required Immobilization for Trauma or Surgery or Anesthesia Urinary Catheter Date of Insertion: 09/23/25 Urinary Catheter Time of Insertion: 18:57 Data 09/24/25 04:31 09/23/25 18:47 A&P Assessment and plan 1. Intertrochanteric fracture of right hip: Stable. Awaiting further advice from general orthopedics. 2. 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, without long-term current use of insulin: Blood sugar a bit high. I will further control with basal. Insulin. 3. Chronic atrial fibrillation, unspecified: Patient patient's mary blockers for 4. halfway (current) use of anticoagulants: Noted. Will continue to hold warfarin at this time, recheck INR in the morning. Plan: Currently stable patient. Patient's INR is therapeutic, but too high for him for further surgery. He was 2.24 yesterday, and 2.26 today. In further preparation for discharge tomorrow, I will give patient a one-time dose of vitamin K oral. A repeat INR in the late morning. PDMP PDMP Reviewed: Not Reviewed Attestations 2 Medical Necessity Statement*: Patient admitted for apparent severe clinical condition, as outlined in the Assessment & Plan section above. Patient will need up to 2 midnight stay, estimated, at least, to adequately and appropriately treat and optimally control above-named clinical conditions,. 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
--- NOTE | 2025-09-24 10:17 | PC.CHAP ---
Pastoral Care Encounter/Spiritual Assessment Type of Contact [] Declined front end specialist visit [] Patient/Family/Request visit [] Outpatient visit [] Follow-up visit [] Physician referral [] Code/Alert [x] Routine visit [] Staff referral [] Actively dying [] Patient sleeping [x] Family support [] [] Out of room [] Palliative care [] [] Receiving care in room [] Pre-surgical visit [] Trauma [] Long length of stay [] ICU visit [] Other: Relational/Emotional Strength [x] Patient feels connected with others/family/visitors/staff [] Distress [] Loneliness/isolation [] Abandonment Spirituality of Patient [x] Person of Marian [x] Attends Anglican of their Marian [x] Believes in Prayer [x] Reads Bible or Rastafari materials [] There are Spiritual issues to be addressed [place] Interventions [] Prayer [x] Active listening [x] Non-anxious presence [x] Spiritual/emotional support [] Crisis/trauma care [] Spiritual counseling [] Bereavement support [] Provided bereavement packet [] Provided Bible/devotional materials [] Provided toy/stuffed animal, coloring book to patient or family member [] Provided Communion [] Anointing/[place] [] Salvation [x] Completed spiritual assessment [] Other: Impact on Illness or Injury [] Angry [] Fearful [] Anxious [] Often cries [] Exhaustion [] Unable to work [] Unable to attend oriental orthodox [] Unable to walk/stand [] Unable to read [] Unable to drive [] Unable to eat/drink [] Unable to sleep [] Unable to be with family [] Patient intubated [] Other: Summary Time spent with patient 5 min
[2025-09-24] MEDS: phytonadione (ADULT) 10 mg/mL Ampule 1 mL 5 MG PO (14:01)
--- NOTE | 2025-09-24 21:23 | ANES.PREANE2 ---
Pre-Anesthetic Assessment Height/Weight: Height 5 ft Weight 131 lb Temp Pulse Resp BP Pulse Ox O2 Del Method 97.5 F L 120 H 16 147/66 90 Room Air 09/24/25 19:31 09/24/25 19:31 09/24/25 19:31 09/24/25 19:31 09/24/25 19:31 09/24/25 19:31 Preop Diagnosis: Hip fracture Operation Date: 09/25/25 07:00 Proposed Procedures p Trochanteric Femoral Nail Intertrochanteric Femoral Nail Insertion(Right) - Onur Bryant, DO Was Beta Yessica taken within 24 hours: Yes Was Clonidine taken within 24 hours: N/A Social No alcohol and No tobacco Exam alert, oriented x 3 and clear to auscultation bilaterally Airway Submandibular: within normal limits Cervical ROM: within normal limits Mallampati: Class III Comments: Comments: Edentulous Anesthetic Plan ASA status: 4 Anesthesia: General Other: No prior issues with anesthesia NPO since yesterday evening History of hypertension on benazepril, metoprolol and diltiazem Type 2 diabetes, no insulin A-fib, on chronic warfarin. INR 2.2 at admission. Recheck today INR 1.73 Echo 09/23/2025 showing EF of 35 to 40% with diffuse hypokinesis PA pressure of 56 with moderate tricuspid regurg Patient states that she is still active at home and even had a shopping trip planned with her daughter prior to the hip fracture Plan for general anesthesia Medications/Allergies Home Medications ?Medication ?Instructions ?Recorded ?Confirmed ?Last Taken ?Type diltiazem HCl 60 mg tablet See Rx Instructions .Route 11/26/24 09/24/25 09/23/25 09:00 Rx .COMPLEX #270 tabs metolazone 5 mg tablet 5 mg PO .COMPLEX #20 tabs 04/18/25 09/24/25 09/23/25 09:00 Rx metoprolol succinate 100 mg See Rx Instructions .Route 05/13/25 09/24/25 09/23/25 09:00 Rx tablet,extended release 24 hr .COMPLEX #180 tabs potassium chloride 10 mEq See Rx Instructions .Route 06/25/25 09/24/25 09/23/25 09:00 Rx tablet,extended release .COMPLEX #180 tabs benazepril 10 mg tablet See Rx Instructions .Route 07/24/25 09/24/25 09/23/25 08:00 Rx .COMPLEX #180 tabs furosemide 40 mg tablet See Rx Instructions .Route 08/21/25 09/24/25 09/23/25 08:00 Rx .COMPLEX #180 tabs atorvastatin 20 mg tablet See Rx Instructions .Route 09/01/25 09/24/25 09/23/25 08:00 Rx .COMPLEX #90 tabs warfarin 2 mg tablet See Rx Instructions .Route 09/10/25 09/24/25 09/23/25 Rx .COMPLEX #180 tabs ciprofloxacin HCl 250 mg tablet 250 mg PO BID #10 tabs 09/18/25 09/24/25 09/23/25 08:00 Rx Allergies Allergy/AdvReac Type Severity Reaction Status Date / Time Sulfa (Sulfonamide Allergy Unknown Verified 02/07/25 18:36 Antibiotics) Current Medications Generic Name Dose Route Start Last Admin Trade Name Freq PRN Reason Stop Dose Admin Hydrocodone Bitart/Acetaminophen 1 tab 09/23/25 20:59 09/24/25 18:45 Hydrocodone-Acetaminophen 5-325 Mg Tablet PO 1 tab Q4H PRN Administration MODERATE TO SEVERE PAIN Diltiazem HCl 60 mg 09/24/25 14:30 09/24/25 20:09 Diltiazem 60 Mg Tablet PO 60 mg Q6H JUVENAL Administration Furosemide 20 mg 09/24/25 17:00 09/24/25 17:24 Furosemide 20 Mg Tablet PO 20 mg BID JUVENAL Administration Insulin Human Lispro 0 unit 09/23/25 21:00 09/23/25 22:11 Insulin Lispro 100 Unit/1 Ml SUBCUT Not Given BEDTIME JUVENAL Protocol Ondansetron HCl 4 mg 09/23/25 20:59 09/24/25 18:45 Ondansetron 2 Mg/Ml Sdv 2 Ml IVP 4 mg Q4H PRN Administration vomiting, or N/V if npo PFSH Anesthesia Medical History (Updated 09/24/25 @ 13:32 by Flaco Salcido MD) Leiomyoma Mesenteric artery stenosis 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, 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7 % Neut # (Auto) 7.85 H (1.8-7.7) 10^3/uL BMP 09/23/25 18:47 Sodium 136 Potassium 4.5 Chloride 97 L Carbon Dioxide 28 BUN 24 H Creatinine 1.6 H Glucose 227 H Calcium 8.9 Liver Function 09/23/25 Range/Units 18:47 Total Bilirubin 0.3 (0.15-1.2) mg/dL AST 24 (0-32) U/L ALT 19 (0-33) U/L Alkaline Phosphatase 92 (35-105) U/L Albumin 4.3 (3.5-5.2) g/dL Urine 09/23/25 Range/Units 18:41 Urine Color Yellow (Yellow) Urine Appearance Clear (CLEAR) Urine pH 5.5 (5-7) Ur Specific [place] 1.022 (1.005-1.030) Urine Protein 1+ A (Negative) Urine Glucose (UA) 2+ H (Normal) Urine Ketones Negative (Negative) Urine Nitrate Negative (Negative) Urine Bilirubin Negative (Negative) Ur Leukocyte Esterase Trace A (Negative) Urine RBC 0-2 (0-2) /hpf Urine WBC 6-10 (0-5) /hpf Coags 09/23/25 09/24/25 18:47 04:31 PT 26.10 H 26.30 H INR 2.24 H 2.26 H APTT 27.0 Cardiac Studies: Echocardiogram 09/23/25 Sestamibi Stress Test (Cardiology) 10/25/22
[2025-09-25] VITALS (23 sets, daily range): BP systolic 138–197; BP diastolic 65–125; PULSE 85–127; RESP 15–18; TEMP 36.5–37.4; O2SAT 90–98
[2025-09-25] MEDS: ondansetron 2 mg/ML SDV 2 mL 4 MG IVP ×2 (02:10→09:46)
[2025-09-25] MEDS: morphine 4 mg/mL SDV 1 mL 2 MG IVP (02:10)
[2025-09-25 04:37] LABS: Hematocrit 37.6 % (36-47); Hemoglobin 12.00 g/dL (11.27-16.99); Mean Corpuscular HGB Conc 31.9 g/dL (30-55); Mean Corpuscular Hemoglobin 29.8 pg (27-33); Mean Corpuscular Volume 93.3 fl (85-98); Nucleated Red Blood Cells % 0 %; Platelet Count 216 10^3/cmm (157-399); Red Blood Count 4.03 10^6/uL (3.85-5.65); White Blood Count 12.45 10^3/uL (3.29-11.43)
[2025-09-25 04:56] LABS: INR 1.73 (0.8-1.2); Prothrombin Time 21.40 SECONDS (12.1-14.9)
[2025-09-25 05:01] LABS: Blood Urea Nitrogen 18 mg/dL (8-23); Calcium 8.7 mg/dL (8.5-10.5); Carbon Dioxide 27 mmol/L (22-29); Chloride 92 mmol/L (98-107); Glucose 166 mg/dL (65-115); Magnesium 2.2 mg/dL (1.7-2.3); Osmolality Calculated 280 mOsm/kg (285-295); Sodium 132 mmol/L (136-145)
[2025-09-25] MEDS: ATORVASTATIN 20 MG TABLET PO (05:10)
[2025-09-25] MEDS: metoprolol succinate ER (24 HR) 25 mg Tablet PO (05:10)
[2025-09-25 05:22] LABS: Anion Gap 17.6 (5-19); Potassium 4.6 mmol/L (3.5-5.1)
--- NOTE | 2025-09-25 06:35 | W.PM.OPSUD ---
Surgery/Procedure H&P Update DATE OF PROCEDURE: September 25, 2025 DATE H&P PERFORMED: 09/24/25 H&P UPDATE INFORMATION: I have reviewed H&P completed within last 30 days, I have examined patient prior to procedure and No changes to prior documentation PREOP DIAGNOSIS: Hip fracture PLANNED PROCEDURE: Operation Date: 09/25/25 07:00 Proposed Procedures p Trochanteric Femoral Nail Intertrochanteric Femoral Nail Insertion(Right) - Onur Bryant DO
[2025-09-25] MEDS: ceFAZolin 2,000 mg SDV 2000 MG IVP ×3 (07:26→22:38)
--- NOTE | 2025-09-25 08:10 | PM.OP ---
Operative Report Date of procedure: September 25, 2025 Pre-op diagnosis: Right intertrochanteric hip fracture Post-op diagnosis: same Procedure done: Right intramedullary hip nail Surgeon: Onur Bryant DO Estimated blood loss (mL): 5 Procedure: Right intramedullary hip nail Patient is brought to the operative suite after an underwent anesthesia was placed in the supine position. All areas of impingement were well-padded. Traction was applied to the fracture table with internal rotation fracture was reduced. Patient was then prepped and draped in normal sterile fashion. Skin incision was made over the greater trochanter. Wire was inserted to tip the greater trochanter. Opening reamer was inserted. Followed by the nail. Once the nail was inserted then the wire was placed from the femur up in the center center position of the femoral head. This confirmed under C-arm guidance the canal of the screw pathway was drilled to 95. Size 90 screw was placed and was compressed 5 mm. The locking screw was placed proximally to lock the marck lag screw into position. Next attention was brought to the distal locking screw a screw was placed 35 mm in length at the distal end of the nail. AP and lateral fluoroscopy ensured that the nail and fracture were in good position. Wounds were irrigated and closed with Vicryl and Monocryl suture. Sterile dressings applied and patient transferred to the PACU in stable condition.
--- NOTE | 2025-09-25 08:30 | XR_ITS ---
WS: [id number] XR femur RT min 2V* [id number] REASON FOR EXAM: OR PICS FINDINGS: Short intramedullary marck and large femoral neck nail fixation of the recent intertrochanteric fracture. Surgical appliances are intact and in proper position and alignment. Fracture fragments are in good position and alignment. XR/XR femur RT min 2V* [id number] IMPRESSION: Right hip fracture with internal fixation without abnormality.
--- NOTE | 2025-09-25 08:40 | ANE.PACU2 ---
Inpatient post-anesthesia follow up: Airway intact: Yes Vital signs: Temperature 98.2 F Pulse Rate 98 Respiratory Rate 18 Blood Pressure 159/70 Pulse Oximetry 97 Oxygen Delivery Me thod Nasal Cannula Oxygen Flow Rate 2 Fraction of Inspir ed Oxygen Hydration adequate: Yes Nausea and vomiting: No Pain level: 1 Mental status: Baseline
[2025-09-25] MEDS: hyDRALAzine 20 mg/mL INJ 1 mL 10 MG IVP (09:47)
--- NOTE | 2025-09-25 10:03 | PC.SOCIAL ---
IMM Update pg 2 of IMM Updated and reviewed w/ patient. Copy provided and copy dated, initialed and placed in chart.
[2025-09-25] MEDS: metoclopramide 5 mg/mL SDV 2 mL 10 MG IVP ×2 (10:50→17:28)
--- NOTE | 2025-09-25 11:00 | PM.PN ---
Subjective Subjective: Patient is seen this morning shortly after returning from surgery where she had an uneventful surgical fixation of the fractured hip. She reports that the procedure went well. Currently, she complains of being nauseated. Otherwise, she denies any symptoms. Vitals/I&O/Wt Last Vital Signs Temp 98.1 F 09/25/25 10:45 Pulse 115 H 09/25/25 10:45 Resp 16 09/25/25 10:45 BP 177/78 09/25/25 10:45 Pulse Ox 96 09/25/25 10:45 O2 Del Method Nasal Cannula 09/25/25 10:45 O2 Flow Rate 1 09/25/25 10:45 09/24/25 09/25/25 09/25/25 22:59 06:59 14:59 Intake Total 120 / 360 0 / 0 Output Total 500 / 500 300 / 800 400 / 400 Balance -380 / -140 -300 / -440 -400 / -400 Weight last 48 hrs Weight 60.328 kg Weight 59.421 kg Weight 57.606 kg Weight 57.606 kg Physical Exam Narrative: General: Sleepy patient but awake. Able to hold conversation.. Cooperative. Chest/Resp: Normal respiratory chest movts; no obvious respiratory distress. CVS: Rhythm: Regular heart rate and rhythm. GI: Non-distended; No obvious organomegaly. Extremities: No obvious pitting pedal edema. Skin: No obvious new rashes or new skin lesions. Urinary Catheter Management: Duran: Cath Placed During This Visit: yes Reason for Continuing Indwelling Catheter: Required Immobilization for Trauma or Surgery or Anesthesia Urinary Catheter Date of Insertion: 09/23/25 Urinary Catheter Time of Insertion: 18:57 Data 09/25/25 04:30 09/25/25 04:30 Other Labs: All Labs last 24 hrs except CBC/BMP 09/24/25 09/24/25 09/25/25 16:30 20:15 04:30 INR 1.73 H GFR Calculation Not Reportable POC Glucose 155 H 153 H Calculated Osmolality 280 L Calcium 8.7 Magnesium 2.2 09/25/25 11:05 PT 20.90 H INR 1.69 H A&P Assessment and plan 1. Intertrochanteric fracture of right hip: Status post open physician with intramedullary hip nail 2. 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 Chronic atrial fibrillation, unspecified: Plan: Currently stable patient. Continue other postop treatment plans, as expedited by orthopedic surgery. Continue home medications, as adjusted. We may resume patient's warfarin by tomorrow evening. PDMP PDMP Reviewed: Not Reviewed Attestations Medical Necessity Statement*: Patient is considerately estimated to likely to require up to 2 more mid-night stay in the medical floor on inpatient status so as to hopefully optimally treat the acute medical problems and their symptoms and further control comorbidities. She will need physical therapy, while we further stabilize her A-fib, and resume Coumadin to achieve therapeutic INR, etc. 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
[2025-09-25 11:29] LABS: INR 1.69 (0.8-1.2); Prothrombin Time 20.90 SECONDS (12.1-14.9)
[2025-09-25] MEDS: HYDROcodone-acetaminophen 5-325 mg Tablet 1 TAB PO ×2 (13:21→22:38)
[2025-09-25] MEDS: alum-mag-hydroxide-sime 30 mL UDC PO (17:53)
[2025-09-25] MEDS: pantoprazole 40 mg SDV IVP (17:53)
--- NOTE | 2025-09-25 18:14 | PC.NURSE ---
Patient has had a lot of nausea post-op. Dr. Salcido notified and reglan ordered. Nausea is now controlled. Patient has been intermittently in Afib with RVR. Afternoon PO cardizem administered early. Dr. Salcido notified of this as well. Patient's BP has been elevated all day, but has greatly improved this evening. Patient currently still in Afib but with a rate of 105. Pain well controlled. Surgical dressing C/D/I. Fresh ice in place. at bedside.
[2025-09-26] MEDS: hyDRALAzine 20 mg/mL INJ 1 mL 10 MG IVP (01:52)
[2025-09-26] MEDS: HYDROcodone-acetaminophen 5-325 mg Tablet 1 TAB PO ×2 (02:47→13:30)
[2025-09-26 02:51] VITALS: BP 138/52
[2025-09-26] MEDS: metoprolol tartrate 1 mg/1 mL SDV 5 mL 10 MG IVP (03:03)
[2025-09-26 04:00] VITALS: BP 135/72; PULSE 114; RESP 17; TEMP 36.8; O2SAT 98
[2025-09-26] MEDS: pantoprazole 40 mg SDV IVP (05:06)
[2025-09-26] MEDS: ATORVASTATIN 20 MG TABLET PO (05:07)
[2025-09-26] MEDS: metoprolol succinate ER (24 HR) 25 mg Tablet PO (05:07)
[2025-09-26 06:00] VITALS: PULSE 99
[2025-09-26 06:01] LABS: Anion Gap 14.3 (5-19); Blood Urea Nitrogen 17 mg/dL (8-23); Calcium 8.4 mg/dL (8.5-10.5); Carbon Dioxide 28 mmol/L (22-29); Chloride 95 mmol/L (98-107); Glucose 179 mg/dL (65-115); Osmolality Calculated 282 mOsm/kg (285-295); Potassium 4.3 mmol/L (3.5-5.1); Sodium 133 mmol/L (136-145)
[2025-09-26 07:35] VITALS: BP 159/70; PULSE 98; RESP 18; TEMP 36.8; O2SAT 97
[2025-09-26] MEDS: ceFAZolin 2,000 mg SDV 2000 MG IVP (07:37)
--- NOTE | 2025-09-26 10:46 | P.DS_ITS ---
Discharge Providers Date of Admission: 09/23/25 18:31 Date of Discharge: September 26, 2025 Attending Provider at Admission: Flaco Salcido MD Attending Provider at Discharge: Flaco Salcido MD Primary Care Provider: Francesco Parr MD Diagnoses at Discharge Discharge Diagnosis 1. Intertrochanteric fracture of right hip: Details from hospital stay: Status post open surgical fixation. 2. 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, without long-term current use of insulin: 3. 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 Chronic atrial fibrillation, unspecified: Reason for Visit Reason for Visit: R knee pain, fall Brief History: Patient presented to the ER with complaint of fall, and pain in the hip. She was found to have right intra-articular fracture, therefore requiring consultation with the orthopedic doctor. Other concomitant symptoms persisted empirically. We held her Coumadin, while getting patient ready for surgery. Hospital Course Hospital Course Patient's hospital stay was briefly complicated by brief onset of A-fib with RVR, which was controlled when her home dose of diltiazem was finally started and monitored. Yesterday, patient had uneventful surgery. Thereafter, she was mobilized by physical therapy. As of today, given stable symptoms, she is therefore recommended for discharge by orthopedics to detention facility. See my discharge orders and discharge instructions for more details. Physical Exam Narrative: General: Awake and alert patient. Resp: No obvious respiratory distress or difficulty breathing. Skin: No obvious rashes or new skin lesions. MSK: Deferred at this time. All other physical findings essentially within normal limits. Urinary Catheter Management: Duran: Cath Placed During This Visit: yes, but has since been removed by the nurse Reason for Continuing Indwelling Catheter: Decision to DC Catheter Urinary Catheter Date of Insertion: 09/23/25 Urinary Catheter Time of Insertion: 18:57 Date Urinary Catheter Removed: 09/26/25 Time Urinary Catheter Discontinued: 05:20 Discharge Data Studies Completed and Pending Completed Studies During Hospitalization Category Date Time Status XR chest 1V portable [id number] Stat Exams 09/23/25 18:15 Completed XR femur RT min 2V* [id number] Routine Exams 09/25/25 08:30 Completed XR femur RT min 2V* [id number] Stat Exams 09/23/25 17:25 Completed XR knee RT 3V* [id number] Stat Exams 09/23/25 16:41 Completed XR pelvis 1-2V* [id number] Stat Exams 09/23/25 18:08 Completed CV. echo complete* [id number] Stat Ultrasound 09/23/25 19:39 Completed Pending at discharge Category Date Time Status C-arm Fluoroscopy [id number] Routine Exams 09/25/25 06:29 Taken Basic Metabolic Panel AM LABS Lab 09/27/25 04:00 Ordered Radiology Impressions Knee X-Ray 09/23/25 16:41 IMPRESSION: No acute fracture or dislocation Pelvis X-Ray 09/23/25 18:08 IMPRESSION: Acute intertrochanteric fracture right femur Chest X-Ray 09/23/25 18:15 IMPRESSION: Mild cardiomegaly. Femur X-Ray 09/25/25 08:30 IMPRESSION: Right hip fracture with internal fixation without abnormality. Laboratory Results WBC 12.45 10^3/uL (3.29-11.43) H 09/25/25 04:30 RBC 4.03 10^6/uL (3.85-5.65) 09/25/25 04:30 Hgb 12.00 g/dL (11.27-16.99) 09/25/25 04:30 Hct 37.6 % (36-47) 09/25/25 04:30 MCV 93.3 fl (85-98) 09/25/25 04:30 MCH 29.8 pg (27-33) 09/25/25 04:30 MCHC 31.9 g/dL (30-55) 09/25/25 04:30 RDW 13.1 % (12.1-15.1) 09/25/25 04:30 Plt Count 216 10^3/cmm (157-399) 09/25/25 04:30 MPV 9.8 fL (7.4-10.4) 09/25/25 04:30 Neut % (Auto) 78.4 % 09/25/25 04:30 Lymph % (Auto) 8.7 % 09/25/25 04:30 O'Brien % (Auto) 11.1 % 09/25/25 04:30 Eos % (Auto) 0.4 % 09/25/25 04:30 Baso % (Auto) 0.3 % 09/25/25 04:30 Neut # (Auto) 9.76 10^3/uL (1.8-7.7) H 09/25/25 04:30 Lymph # (Auto) 1.1 10^3/uL (0.8-4.8) 09/25/25 04:30 O'Brien # (Auto) 1.4 10^3/uL (0.2-0.9) H 09/25/25 04:30 Eos # (Auto) 0.1 10^3/uL (0.0-0.8) 09/25/25 04:30 Baso # (Auto) 0.0 10^3/uL (0.0-0.1) 09/25/25 04:30 Nucleated RBC % (auto) 0 % 09/25/25 04:30 Nucleated RBCs # 0.0 /100WBC 09/25/25 04:30 PT 20.90 SECONDS (12.1-14.9) H 09/25/25 11:05 INR 1.69 (0.8-1.2) H 09/25/25 11:05 APTT 27.0 SECONDS (23.9-36.7) 09/23/25 18:47 Sodium 133 mmol/L (136-145) L 09/26/25 05:15 Potassium 4.3 mmol/L (3.5-5.1) 09/26/25 05:15 Chloride 95 mmol/L (98-107) L 09/26/25 05:15 Carbon Dioxide 28 mmol/L (22-29) 09/26/25 05:15 Anion Gap 14.3 (5-19) 09/26/25 05:15 BUN 17 mg/dL (8-23) 09/26/25 05:15 Creatinine 1.1 mg/dL (0.5-0.9) H 09/26/25 05:15 GFR Calculation Not Reportable 09/26/25 05:15 Glucose 179 mg/dL (65-115) H 09/26/25 05:15 POC Glucose 199 mg/dL (70-110) H 09/26/25 06:12 Calculated Osmolality 282 mOsm/kg (285-295) L 09/26/25 05:15 Calcium 8.4 mg/dL (8.5-10.5) L 09/26/25 05:15 Magnesium 2.2 mg/dL (1.7-2.3) 09/25/25 04:30 Total Bilirubin 0.3 mg/dL (0.15-1.2) 09/23/25 18:47 AST 24 U/L (0-32) 09/23/25 18:47 ALT 19 U/L (0-33) 09/23/25 18:47 Alkaline Phosphatase 92 U/L (35-105) 09/23/25 18:47 Total Protein 7.6 g/dL (6.6-8.7) 09/23/25 18:47 Albumin 4.3 g/dL (3.5-5.2) 09/23/25 18:47 Globulin 3.3 g/dL (1.3-4.6) 09/23/25 18:47 Urine Color Yellow (Yellow) 09/23/25 18:41 Urine Appearance Clear (CLEAR) 09/23/25 18:41 Urine pH 5.5 (5-7) 09/23/25 18:41 Ur Specific Adams 1.022 (1.005-1.030) 09/23/25 18:41 Urine Protein 1+ (Negative) A 09/23/25 18:41 Urine Glucose (UA) 2+ (Normal) H 09/23/25 18:41 Urine Ketones Negative (Negative) 09/23/25 18:41 Urine Blood Negative (Negative) 09/23/25 18:41 Urine Nitrate Negative (Negative) 09/23/25 18:41 Urine Bilirubin Negative (Negative) 09/23/25 18:41 Urine Urobilinogen 0.2 mg/dL (Negative) 09/23/25 18:41 Ur Leukocyte Esterase Trace (Negative) A 09/23/25 18:41 Urine RBC 0-2 /hpf (0-2) 09/23/25 18:41 Urine WBC 6-10 /hpf (0-5) 09/23/25 18:41 Ur Squamous Epith Cells 0-5 /hpf (0-5) 09/23/25 18:41 Amorphous Sediment Not Reportable 09/23/25 18:41 Urine Bacteria None seen /hpf (NONE) 09/23/25 18:41 Hyaline Casts 42.19 /lpf 09/23/25 18:41 Vitals Last Vital Signs Temp 98.2 F 09/26/25 07:35 Pulse 98 09/26/25 07:35 Resp 18 09/26/25 07:35 BP 159/70 09/26/25 07:35 Pulse Ox 97 09/26/25 07:35 O2 Del Method Nasal Cannula 09/26/25 07:35 O2 Flow Rate 2 09/25/25 20:00 Discharge Plan Discharge Patient Disposition: Xfer SNF Condition: Stable Prescriptions: New hydrocodone-acetaminophen 5-325 mg Tablet 1 tab PO Q6H PRN (Reason: Moderate To Severe Pain) Qty: 30 0RF Continued metolazone 5 mg tablet 5 mg PO .COMPLEX Qty: 20 5RF Rx Instructions: Take 1 tablet by mouth on Mondays , Wednesdays, and Fridays . furosemide 40 mg tablet See Rx Instructions .ROUTE .COMPLEX Qty: 180 8RF Dose Instruction: TAKE 1 TABLET BY MOUTH TWICE A DAY FOR EDEMA Rx Instructions: TAKE 1 TABLET BY MOUTH TWICE A DAY FOR EDEMA ciprofloxacin HCl 250 mg tablet 250 mg PO BID Qty: 10 0RF diltiazem HCl 60 mg tablet See Rx Instructions .ROUTE .COMPLEX Qty: 270 3RF Dose Instruction: TAKE 1 TABLET BY MOUTH THREE TIMES A DAY FOR 30 DAYS Rx Instructions: TAKE 1 TABLET BY MOUTH THREE TIMES A DAY FOR 30 DAYS metoprolol succinate 100 mg tablet extended release 24 hr See Rx Instructions .ROUTE .COMPLEX Qty: 180 3RF Dose Instruction: TAKE 1 TABLET BY MOUTH TWICE A DAY Rx Instructions: TAKE 1 TABLET BY MOUTH TWICE A DAY potassium chloride 10 mEq tablet extended release See Rx Instructions .ROUTE .COMPLEX Qty: 180 2RF Dose Instruction: TAKE 1 TABLET BY MOUTH TWICE A DAY Rx Instructions: TAKE 1 TABLET BY MOUTH TWICE A DAY benazepril 10 mg tablet See Rx Instructions .ROUTE .COMPLEX Qty: 180 3RF Dose Instruction: TAKE 1 TABLET BY MOUTH TWICE A DAY Rx Instructions: TAKE 1 TABLET BY MOUTH TWICE A DAY atorvastatin 20 mg tablet See Rx Instructions .ROUTE .COMPLEX Qty: 90 3RF Dose Instruction: TAKE 1 TABLET BY MOUTH EVERY DAY Rx Instructions: TAKE 1 TABLET BY MOUTH EVERY DAY warfarin 2 mg tablet See Rx Instructions .ROUTE .COMPLEX Qty: 180 3RF Dose Instruction: TAKE 1 TABLET BY MOUTH TWICE A DAY Rx Instructions: TAKE 1 TABLET BY MOUTH TWICE A DAY Special Crimes Investigator OK for DC: Orthopedics Discharge Order = DC NOW: Discharge Order (Routine); Ordered 09/26/25 Ordered By: Onur Bryant Referrals: [facility] [Outside] Onur Bryant DO [Physician, Orthopedics] - 10/10/25 1:30 pm Francesco Parr MD [Primary Care Provider, [facility]] Discharge Diet: Usual diet Discharge Activity: Increase activity as tolerated and Limit activity as instructed Patient Instructions: Hydrocodone/Acetaminophen (By mouth), Acute Wound Care ( DC), Hip Arthroscopy (DC), Opioid Safety, Post Anesthesia Care, Patient Portal & William Instructions Activity Restrictions/Additional Instructions: You are being discharged from the hospital today during which time you have been under the care of Dr. Bryant. You had a hip fracture. You were treated for this injury with intramedullary hip nail. You may resume you normal diet (including any special diets as directed by your primary doctor) as well as your home medications. You should follow up with you primary doctor if you have any questions regarding medication you took prior to your stay in the hospital. You may take your pain medication as prescribed. After the first few days, take your pain medication as needed. Do not drive or drink alcohol while taking your pain medication. Your injury may increase your risk of developing a blood clot,or DVT, in your arm or leg. This could potentially dislodge and travel to your lungs and become a life threatening condition called apulmonary embolus,or PE. You have been prescribed warfarin to be taken to prevent this. Frequent movement of the feet will also help prevent this from occurring. If you develop any new or worsening cough, chestpain, bloody sputum or shortness of breath, call 911 or go to the EmergencyRoom. Always keep your surgical incision/dressing clean and dry. If you experience increasing pain at your incision site, redness, swelling, increasing discharge, foul odors, or fevers (greater than 100.4), night sweats or chills you should call the office at the above number. If you feel this is an emergency you should be evaluated in the Emergency Department of a nearby hospital. Orthopedic Patient Instructions Summary: Weight Bearing: Weight-bear as tolerated Activity: As tolerated. Diet: Regular. Wound Care: Keep dressing clean and dry. Anticoagulation: Warfarin Pain Medication: Take only as needed. Ice, rest and elevation will be of great benefit. Please plan to follow-up jennie Bryant in 2 weeks. You will need to call the clinic [phone] to schedule this visit. Thank you far allowing me to participate in your care. Do not hesitate to call the office with any questions or concerns. 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
[2025-09-26 11:32] VITALS: BP 171/92; PULSE 113; RESP 20; TEMP 36.6; O2SAT 91
--- NOTE | 2025-09-26 14:18 | PC.NURSE ---
Report called to Sandy at [facility]
--- NOTE | 2025-09-26 14:41 | PC.NURSE ---
Ihsan Moe here to apple picker pt.
[2025-09-26 14:47] VITALS: BP 171/92; PULSE 113; RESP 20; TEMP 36.6; O2SAT 91
== END 2025-09-26 14:48 | disposition skilled nursing facility (03) | DRG 481 ==
LOC: ER 18:35 → MEDSURG 20:47
PROVIDERS: Internal Medicine; Orthopaedic Surgery; Admitting Provider Family Medicine; Emergency Provider Physician Assistant; PCP Family Medicine; Visit Provider Family Medicine
PROC: 0QS636Z Reposition Right Upper Femur with Intramedullary Internal Fixation Device, Percutaneous Approach (ICD-10-PCS; CPT 27245; principal; 2025-09-25 07:00)
DX: S72.141A Displaced intertrochanteric fracture of right femur, initial encounter for closed fracture (principal); I13.0 Hypertensive heart and chronic kidney disease with heart failure and stage 1 through stage 4 chronic kidney disease, or unspecified chronic kidney disease; I48.20 Chronic atrial fibrillation, unspecified; K55.1 Chronic vascular disorders of intestine; I50.20 Unspecified systolic (congestive) heart failure; W01.0XXA Fall on same level from slipping, tripping and stumbling without subsequent striking against object, initial encounter; N18.9 Chronic kidney disease, unspecified; E11.22 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 with diabetic chronic kidney disease; I25.10 Atherosclerotic heart disease of native coronary artery without angina pectoris; J44.9 Chronic obstructive pulmonary disease, unspecified; E78.5 Hyperlipidemia, unspecified; K57.90 Diverticulosis of intestine, part unspecified, without perforation or abscess without bleeding; I25.2 Old myocardial infarction; Z79.01 Long term (current) use of anticoagulants; Z87.440 Personal history of urinary (tract) infections; Z95.5 Presence of coronary angioplasty implant and graft
CPT/HCPCS: 36415; 36416; 51702; 71045; 72170; 73552; 73562; 76000; 80048; 80053; 81001; 82962; 83735; 85018; 85025; 85610; 85730; 93005; 93306; 96372; 97110; 97116; 97162; 97167; 97530; 97535; 99285; C1713; J0360; J0690; J1885; J2270; J2371; J2405; J2470; J2704; J2765; J3010; J3430; J3490; J7030; J9999

== ENCOUNTER 2025-10-02 13:36 | Inpatient (IN) | payer MEDICARE, OTHER, SELFPAY ==
[2025-10-02] VITALS (10 sets, daily range): BP systolic 96–161; BP diastolic 59–100; PULSE 68–88; RESP 16–18; TEMP 36.5–36.9; O2SAT 94–98; BMI 24.3
--- NOTE | 2025-10-02 13:34 | ECG_ITS ---
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 Measurements Intervals [place] Rate: 81 P: 0 MA: 0 QRS: 28 QRSD: 108 T: 116 QT: 416 QTc: 483 Interpretive Statements ATRIAL FIBRILLATION WITH ABERRANT CONDUCTION OR VENTRICULAR PREMATURE COMPLEXES ST DEVIATION AND MODERATE T-WAVE ABNORMALITY, CONSIDER LATERAL ISCHEMIA [-0.1+ mV T-WAVE IN I/aVL/V5/V6] Compared to ECG 09/23/2025 22:19:44 Ventricular premature complex(es) now present Aberrant conduction of supraventricular beat(s) now present T-wave abnormality still present Possible ischemia still present Electronically Signed On 10-03-2025 17:34:24 PRINT PRODUCTION ASSOCIATE by Myles Snell M.D. [email or web address]
--- NOTE | 2025-10-02 13:34 | CTR_ITS ---
PROCEDURE INFORMATION: Exam: CT Head Without Contrast Exam date and time: 10/02/2025 1:43 PM Age: 75 years old Clinical indication: Stroke-like symptoms; Other: Stroke symptoms; Additional info: Symptoms of acute stroke TECHNIQUE: Imaging protocol: Computed tomography of the head without contrast. Radiation optimization: All CT scans at this facility use at least one of these dose optimization techniques: automated exposure control; mA and/or kV adjustment per patient size (includes targeted exams where dose is matched to clinical indication); or iterative reconstruction. Other technique: STROKE PROTOCOL was implemented. COMPARISON: CT head wo con* [id number] 02/07/2025 6:43 PM RADIATION DOSE METRICS: Total DLP (mGy-cm): 1028.28 FINDINGS: Brain: Right pontine segmental benign-appearing calcification redemonstrated. Moderate hypoattenuating foci are noted in the central cerebral, posterior superior periatrial and anterior lateral ventricular periventricular white matter bilaterally. Mild bilateral globus pallidus calcifications. No intracranial hemorrhage. No mass or acute cortical infarction identified. Ventricles: Prominence of the ventricular system and subarachnoid spaces is consistent with the patient's age of 75 years. Paranasal sinuses: Visualized sinuses are unremarkable. No fluid levels. Mastoid air cells: Visualized mastoid air cells are well aerated. Orbital cavities: Bilateral prior cataract surgery. Bones: No acute abnormality identified. No acute fracture. Soft tissues: Unremarkable. Vasculature: Atherosclerotic calcifications are present involving the carotid artery siphons bilaterally and the left vertebral artery. CT/CT head thrombolytic [id number] IMPRESSION: 1. Age appropriate supratentorial and infratentorial atrophy. 2. Moderate chronic white matter microvascular ischemic disease. 3. No acute intracranial abnormality identified. ASSESSMENT: ASPECTS ([place] Stroke Program Early CT Score) is 10.
--- NOTE | 2025-10-02 13:34 | CTR_ITS ---
THIS REPORT CONTAINS FINDINGS THAT MAY BE CRITICAL TO PATIENT CARE. The findings were verbally communicated by me to DR. MELVI FRIEND via telephone conference at 2:18 PM TECHNICIAN CHEMICAL CLEANING on 10/02/2025. The findings were acknowledged and understood. PROCEDURE INFORMATION: Exam: CTA Head With Contrast, Arteriography Exam date and time: 10/02/2025 1:47 PM Age: 75 years old Clinical indication: Stroke-like symptoms; Altered mental status/memory loss; Additional info: CVA TECHNIQUE: Imaging protocol: Computed tomographic angiography of the head with contrast. Exam focused on the arteries. 3D rendering (Not supervised by radiologist): MIP reconstructed images were created by the technologist. Radiation optimization: All CT scans at this facility use at least one of these dose optimization techniques: automated exposure control; mA and/or kV adjustment per patient size (includes targeted exams where dose is matched to clinical indication); or iterative reconstruction. Contrast material: [id number]; Contrast volume: 100 ml; Contrast route: INTRAVENOUS (IV); COMPARISON: CT head thrombolytic [id number] 10/02/2025 1:43 PM RADIATION DOSE METRICS: Total DLP (mGy-cm): 389.24 FINDINGS: ANTERIOR CIRCULATION: Right internal carotid artery: Cavernous and paraclinoid segment calcified plaque, less than 30% stenosis. Right middle cerebral artery: No occlusion or significant stenosis. No aneurysm. Right anterior cerebral artery: No occlusion or significant stenosis. No aneurysm. Left internal carotid artery: Cavernous and paraclinoid segment calcified plaque, 50% cavernous segment stenosis. Left middle cerebral artery: No occlusion or significant stenosis. No aneurysm. Left anterior cerebral artery: No occlusion or significant stenosis. No aneurysm. POSTERIOR CIRCULATION: Right vertebral artery: No occlusion or significant stenosis. No aneurysm. Left vertebral artery: Left vertebral artery V4 segment calcified plaque, less than 30% stenosis. Basilar artery: No occlusion or significant stenosis. No aneurysm. Right posterior cerebral artery: No occlusion or significant stenosis. No aneurysm. Left posterior cerebral artery: No occlusion or significant stenosis. No aneurysm. Veins: 4.0 mm posteroinferior superior sagittal sinus benign intravascular arachnoid granuloma. Brain: No definite mass, mass effect, or midline shift. Ventricles: No hydrocephalus. Bones/joints: No acute abnormality. No acute fracture. Soft tissues: Unremarkable. PROCEDURE INFORMATION: Exam: CTA Neck With Contrast Exam date and time: 10/02/2025 1:47 PM Age: 75 years old Clinical indication: Stroke-like symptoms; Altered mental status/memory loss; Additional info: CVA TECHNIQUE: Imaging protocol: Computed tomographic angiography of the neck with contrast. Exam focused on the cervical segments of the vasculature. 3D rendering (Not supervised by radiologist): MIP reconstructed images were created by the technologist. Radiation optimization: All CT scans at this facility use at least one of these dose optimization techniques: automated exposure control; mA and/or kV adjustment per patient size (includes targeted exams where dose is matched to clinical indication); or iterative reconstruction. Contrast material: [id number]; Contrast volume: 100 ml; Contrast route: INTRAVENOUS (IV); COMPARISON: CT neck w con* [id number] 05/11/2022 2:09 PM RADIATION DOSE METRICS: Total DLP (mGy-cm): 389.24 FINDINGS: Right common carotid artery: Right common carotid artery bifurcation calcified plaque, approximately 60% area stenosis. Right internal carotid artery: Extensive calcified smooth plaque proximal right internal carotid artery, approximately 40% NASCET stenosis. Right external carotid artery: No occlusion or stenosis of the origin. Left common carotid artery: Mild calcified plaque, less than 20% stenosis. Left internal carotid artery: Mild left proximal internal carotid artery calcified smooth plaque, no NASCET stenosis (distal vessel reference). Left external carotid artery: Mild calcified smooth proximal plaque, less than 25% stenosis. Right vertebral artery: No stenosis. No dissection or occlusion. Left vertebral artery: Moderate-severe stenosis left vertebral artery origin. Right subclavian artery: Severe proximal right subclavian artery stenosis. Thyroid: Right thyroid hypodensity measuring 6.8 mm. No specific follow-up imaging is recommended. Soft tissues: Normal. No significant soft tissue swelling. Bones/joints: Diffuse osteopenia. Right predominant C5-6 degenerative disc disease with moderate spondylosis. Edentulous maxilla and mandible. CT/CT angio headneck* [id number] IMPRESSION: 1. Moderate stenosis left internal carotid artery cavernous segment. 2. No acute intracranial vascular abnormality identified. IMPRESSION: 1. Moderate-severe stenosis left vertebral artery origin. 2. Moderate right common carotid artery bifurcation stenosis. 3. Severe proximal right subclavian artery stenosis. Recommend clinical assessment for vertebral artery steal syndrome. 4. No acute extracranial vascular abnormality identified. REFERENCES: NASCET CRITERIA. The degree of stenosis in the cervical segment of the internal carotid artery is based on NASCET criteria. Normal is no stenosis. Mild is less than 50% stenosis. Moderate is 50-69% stenosis. Severe is 70% to 99% stenosis. Total occlusion is no detectable patent lumen.
--- OUTSIDE RECORDS SUMMARY | 2025-10-02 13:42 | XMS_ITS | Encounter Summary ---
Author Organization [facility] Address [address] [place] [address] Care Team Providers Care Lumber Straightened Name Role Phone Jarred Arcos MD Primary Care Provider + Encounter Details Date Type Department Care Team (Latest Contact Info) Description 08/13/2005 Outpatient Historical [facility] Imaging Services [address] [place] [phone] Efren Lin MD NO ADDRESS ON FILE INTESTINAL DISORDER NOS (Primary Dx) Social History Tobacco Use Types Packs/Day Years Used Date Smoking Tobacco: Never Assessed Comments Unknown Sex and Gender Information Value Date Recorded Sex Assigned at Not on file Legal Sex Female 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
--- OUTSIDE RECORDS SUMMARY | 2025-10-02 13:42 | XMS_ITS | Encounter Summary ---
Author Organization [facility] Address [address] [place] [address] Care Team Providers Care Electric Motor Winders Assembler Name Role Phone Jarred Arcos MD Primary Care Provider + Encounter Details Date Type Department Care Team (Latest Contact Info) Description 08/13/2005 Outpatient Historical [facility] Gen Spec Surg [place] [address] [address] [place] [address] Efren Lin MD NO ADDRESS ON FILE Diaphragmatic hernia (Primary Dx) Social History Tobacco Use Types Packs/Day Years Used Date Smoking Tobacco: Never Assessed Comments Unknown Sex and Gender Information Value Date Recorded Sex Assigned at Not on file 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
--- OUTSIDE RECORDS SUMMARY | 2025-10-02 13:42 | XMS_ITS | Encounter Summary ---
Author Organization [facility] Address [address] [place] [address] Care Team Providers Care Scrap Sawyer Name Role Phone Jarred Arcos MD Primary Care Provider + Encounter Details Date Type Department Care Team (Latest Contact Info) Description 09/03/2005 Outpatient Historical [facility] Gen Spec Surg [place] [address] [address] [place] [phone] Efren Lin MD NO ADDRESS ON FILE Diaphragmatic hernia (Primary Dx); SURGERY FOLLOWUP NOS Social History Tobacco Use Types Packs/Day Years Used Date Smoking Tobacco: Never Assessed Comments Unknown Sex and Gender Information Value Date Recorded Sex Assigned at Not on file Legal Sex Female 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
--- OUTSIDE RECORDS SUMMARY | 2025-10-02 13:42 | XMS_ITS | Clinical Summary ---
Author Organization [facility] Address [address] [place] [address] Care Team Providers Care Capacity Manager Name Role Phone Unavailable Primary Care Provider Unavailabl e Medications Codeine-Guaifen esin (CHERATUSSIN AC) 10-100 mg/5 mL Oral Syrp Take 10 mL by mouth every 4 hours as needed for Cough. 240 mL 4 11/22/2008 Active benazepril (LOTENSIN) 10 mg Oral Tab Take 1 Tab by mouth daily. 30 Tab 11 07/21/2009 Active atorvastatin (LIPITOR) 80 mg Oral tablet Take 1 Tab by mouth Daily LATE. 30 Tab 11 03/02/2010 Active ALPRAZolam (XANAX) 0.25 mg Oral tablet Take 1 Tab by mouth nightly as needed for Anxiety. 90 Tab 3 09/14/2010 Active venlafaxine (EFFEXOR) 75 mg Oral tablet Take 1-2 Tabs by mouth daily. 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
--- OUTSIDE RECORDS SUMMARY | 2025-10-02 13:42 | XMS_ITS | Encounter Summary ---
Author Organization [employer] 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
--- OUTSIDE RECORDS SUMMARY | 2025-10-02 13:43 | XMS_ITS | Encounter Summary ---
Author Organization [facility] Address [address] [place] [address] Care Team Providers Care Compensation Administrator Name Role Phone Jrared Arcos MD Primary Care Provider + Encounter Details Date Type Department Care Team (Latest Contact Info) Description 10/20/2005 Outpatient Historical [facility] Gen Spec Surg [place] [address] [address] [place] [phone] Efren Lin MD NO ADDRESS ON FILE Diaphragmatic hernia (Primary Dx); SURGERY FOLLOWUP NOS Social History Tobacco Use Types Packs/Day Years Used Date Smoking Tobacco: Never Assessed Comments Unknown Sex and Gender Information Value Date Recorded Sex Assigned at Not on file 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
--- OUTSIDE RECORDS SUMMARY | 2025-10-02 13:43 | XMS_ITS | Encounter Summary ---
Author Organization [facility] Address [address] [place] [address] Care Team Providers Care Automobile Body Repairer Helper Name Role Phone Jarred Arcos MD Primary Care Provider + Encounter Details Date Type Department Care Team (Latest Contact Info) Description 07/28/2000 Outpatient Historical [facility] Cardiology- [place] [address] [place] [address] Richie Rosenbaum MD [address] [facility] [address] [place] [address] Old myocardial infarct (Primary Dx); Other specified forms of chronic ischemic heart disease; Coronary atherosclerosis of [place] coronary artery; Mixed hyperlipidemia Social History Tobacco Use Types Packs/Day Years Used Date Smoking Tobacco: Never Assessed Comments Unknown Sex and Gender Information Value Date Recorded Sex Assigned at Not on file Legal Sex Female 3:16 AM CUT OFF MAN Gender Identity Not on file Sexual Orientation Not on file documented as of this encounter Plan of Treatment Not on file documented as of this encounter Visit Diagnoses Diagnosis Old myocardial infarct- Primary Old myocardial infarction Other specified forms of chronic ischemic heart disease Coronary atherosclerosis of [place] coronary artery Mixed hyperlipidemia documented in this encounter Care Teams Automobile Body Repairer Helper Relationship Specialty Start Date End Date Jarred Arcos MD [address] [place] [phone] PCP - General 08/13/05 04/20/07 documented as of this encounter
--- OUTSIDE RECORDS SUMMARY | 2025-10-02 13:43 | XMS_ITS | Encounter Summary ---
Author Organization [facility] Address [address] [place] [address] Care Team Providers Care Pecan Gatherer Name Role Phone Jarred Arcos MD Primary Care Provider + Encounter Details Date Type Department Care Team (Latest Contact Info) Description 08/23/2002 Outpatient Historical [facility] Cardiology- [place] [address] [place] [address] Richie Rosenbaum MD [address] [facility] [address] [place] [address] CHR ISCHEMIC HRT DIS NEC (Primary Dx); CORON ATHEROSCL [place] CORON VESSEL; Pure hypercholesterolem Social History Tobacco Use Types Packs/Day Years Used Date Smoking Tobacco: Never Assessed Comments Unknown Sex and Gender Information Value Date Recorded Sex Assigned at Not on file 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 Sex Female 3:16 AM ALARM OPERATOR Gender Identity Not on file Sexual Orientation Not on file documented as of this encounter Plan of Treatment Not on file documented as of this encounter Visit Diagnoses Diagnosis Other specified forms of chronic ischemic heart disease- Primary Coronary atherosclerosis of [place] coronary artery Pure hypercholesterolem Pure hypercholesterolemia documented in this encounter Care Teams Pecan Gatherer Relationship Specialty Start Date End Date Jarred Arcos MD [address] [facility] [address] [place] [address] PCP - General 08/13/05 04/20/07 documented as of this encounter
--- OUTSIDE RECORDS SUMMARY | 2025-10-02 13:43 | XMS_ITS | Encounter Summary ---
Author Organization [facility] Address [address] [place] [address] Care Team Providers Care Wireless Sales Representative Name Role Phone Jarred Arcos MD Primary Care Provider + Encounter Details Date Type Department Care Team (Latest Contact Info) Description 07/23/1998 Outpatient Historical [facility] Cardiology- [place] [address] [place] [address] Richie Rosenbaum MD [address] [facility] [address] [place] [address] Coronary atherosclerosis of algaaci[place] coronary artery (Primary Dx); Other and unspecified hyperlipidemia Social History Tobacco Use Types Packs/Day Years Used Date Smoking Tobacco: Never Assessed Comments Unknown Sex and Gender Information Value Date Recorded Sex Assigned at Not on file 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
--- OUTSIDE RECORDS SUMMARY | 2025-10-02 13:43 | XMS_ITS | Encounter Summary ---
Author Organization [facility] Address [address] [place] [address] Care Team Providers Care Horse Breaker Name Role Phone Jarred Arcos MD Primary Care Provider + Encounter Details Date Type Department Care Team (Latest Contact Info) Description 07/23/1999 Outpatient Historical [facility] Cardiology- [place] [address] [place] [address] Richie Rosenbaum MD [address] [facility] [address] [place] [address] Other specified forms of chronic ischemic heart disease (Primary Dx); Coronary atherosclerosis of [place]ann[place] coronary artery; Mixed hyperlipidemia Social History Tobacco Use Types Packs/Day Years Used Date Smoking Tobacco: Never Assessed Comments Unknown Sex and Gender Information Value Date Recorded Sex Assigned at Not on file 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
--- OUTSIDE RECORDS SUMMARY | 2025-10-02 13:43 | XMS_ITS | Encounter Summary ---
Author Organization [facility] Address [address] [place] [address] Care Team Providers Care Health Insurance Specialist Name Role Phone Jarred Arcos MD Primary Care Provider + Encounter Details Date Type Department Care Team (Late st Contact Info) Description 08/01/2001 Outpatient Historical [facility] Cardiology- [place] [address] [place] [address] Social History Tobacco Use Types Packs/Day Years Used Date Smoking Tobacco: Never Assessed Comments Unknown Sex and Gender Information Value Date Recorded Sex Assigned at Not on file Legal Sex Female 3:16 AM HISTORICAL GUIDE Gender Identity Not on file Sexual Orientation Not on file documented as of this encounter Plan of Treatment Not on file documented as of this encounter Visit Diagnoses Not on filedocumented in this encounter Care Teams Health Insurance Specialist Relationship Specialty Start Date End Date Jarred Arcos MD [address] [phone] PCP - General 08/13/05 04/20/07 documented as of this encounter
--- OUTSIDE RECORDS SUMMARY | 2025-10-02 13:43 | XMS_ITS | Encounter Summary ---
Author Organization [facility] Address [address] [place] [address] Care Team Providers Care Esl Teacher Name Role Phone Jarred Arcos MD Primary Care Provider + Encounter Details Date Type Department Care Team (Late st Contact Info) Description 07/30/2004 Outpatient Historical [facility] Cardiology- [place] [address] [place] [phone] Joshua Moffett, CASHIER GAMBLING [address] [facility] [address] [place] [address] CORON ATHEROSCL [place] CORON VESSEL (Primary Dx) Social History Tobacco Use Types Packs/Day Years Used Date Smoking Tobacco: Never Assessed Comments Unknown Sex and Gender Information Value Date Recorded Sex Assigned at Not on file Legal Sex Female 3:16 AM PLAN REP Gender Identity Not on file Sexual Orientation Not on file documented as of this encounter Plan of Treatment Not on file documented as of this encounter Visit Diagnoses Diagnosis Coronary atherosclerosis of [place] coronary artery- Primary documented in this encounter Care Teams Esl Teacher Relationship Specialty Start Date End Date Jarred Arcos MD [address] [facility] [address] [place] [address] PCP - General 08/13/05 04/20/07 documented as of this encounter
--- OUTSIDE RECORDS SUMMARY | 2025-10-02 13:43 | XMS_ITS | Encounter Summary ---
Author Organization [facility] Address [address] [place] [address] Care Team Providers Care Technical Training Specialist Name Role Phone Jarred Arcos MD Primary Care Provider + Encounter Details Date Type Department Care Team (Latest Contact Info) Description 04/19/[address] [facility] Gen Spec Surg [place] [address] [facility] [address] [place] [address] Efren Lin MD NO ADDRESS ON FILE Abdominal Pain, Unspecified Site (Primary Dx); Diaphragmatic Hernia Social History Tobacco Use Types Packs/Day Years Used Date Smoking Tobacco: Never Assessed Comments Unknown Sex and Gender Information Value Date Recorded Sex Assigned at Not on file Legal Sex Female 3:16 AM RECYCLABLE MATERIALS SORTER Gender Identity Not on file Sexual Orientation Not on file documented as of this encounter Plan of Treatment Not on file documented as of this encounter Visit Diagnoses Diagnosis Abdominal pain, unspecified site- Primary Diaphragmatic hernia Diaphragmatic hernia without mention of obstruction or gangrene documented in this encounter Care Teams Technical Training Specialist Relationship Specialty Start Date End Date Jarred Arcos MD [address] [phone] PCP - General 08/13/05 04/20/07 documented as of this encounter
--- OUTSIDE RECORDS SUMMARY | 2025-10-02 13:43 | XMS_ITS | Encounter Summary ---
Author Organization [facility] Address [address] [place] [address] Care Team Providers Care Dry Transfer Man Name Role Phone Jarred Arcos MD Primary Care Provider + Encounter Details Date Type Department Care Team (Latest Contact Info) Description 07/28/2005 Outpatient Historical [facility] [address] [place] [address] Markie Tavarez MD NO ADDRESS ON FILE RESP SYSTEM DISEASE NOS (Primary Dx) Social History Tobacco Use Types Packs/Day Years Used Date Smoking Tobacco: Never Assessed Comments Unknown Sex and Gender Information Value Date Recorded Sex Assigned at Not on file Legal Sex Female 3:16 AM AGING ROOM HAND Gender Identity Not on file Sexual Orientation Not on file documented as of this encounter Plan of Treatment Not on file documented as of this encounter Visit Diagnoses Diagnosis Unspecified disease of respiratory system- Primary documented in this encounter Care Teams Dry Transfer Man Relationship Specialty Start Date End Date Jarred Arcos MD [address] [phone] PCP - General 08/13/05 04/20/07 documented as of this encounter
--- OUTSIDE RECORDS SUMMARY | 2025-10-02 13:43 | XMS_ITS | Encounter Summary ---
Author Organization [facility] Address [address] [place] [address] Care Team Providers Care Engraver Picture Name Role Phone Jarred Arcos MD Primary Care Provider + Encounter Details Date Type Department Care Team (Latest Contact Info) Description 08/11/2005 Outpatient Historical [facility] Gen Spec Surg [place] [address] [facility] [address] [place] [address] Efren Lin MD NO ADDRESS ON FILE Diaphragmatic hernia (Primary Dx) Social History Tobacco Use Types Packs/Day Years Used Date Smoking Tobacco: Never Assessed Comments Unknown Sex and Gender Information Value Date Recorded Sex Assigned at Not on file Legal Sex Female 3:16 AM PIGSKIN TRIMMER Gender Identity Not on file Sexual Orientation Not on file documented as of this encounter Plan of Treatment Not on file documented as of this encounter Visit Diagnoses Diagnosis Diaphragmatic hernia- Primary Diaphragmatic hernia without mention of obstruction or gangrene documented in this encounter Care Teams Engraver Picture Relationship Specialty Start Date End Date Jarred Arcos MD [address] [place] [phone] PCP - General 08/13/05 04/20/07 documented as of this encounter
--- OUTSIDE RECORDS SUMMARY | 2025-10-02 13:43 | XMS_ITS | Encounter Summary ---
Author Organization [facility] Address [address] [place] [address] Care Team Providers Care Remotely Operated Vehicle Name Role Phone Unavailable Primary Care Provider Unavailabl e Encounter Details Date Type Department Care Team (Latest Contact Info) Description 04/21/2007 Outpatient Historical [facility] Imaging Services [address] [place] [address] Efren Lin MD NO ADDRESS ON FILE Abdominal or Pelvic Swelling, Mass or Lump, Unspecified Site (Primary Dx) Social History Tobacco Use Types Packs/Day Years Used Date Smoking Tobacco: Never Assessed Comments Unknown Sex and Gender Information Value Date Recorded Sex Assigned at Not on file Legal Sex Female 3:16 AM STEM ASSEMBLER Gender Identity Not on file Sexual Orientation Not on file documented as of this encounter Plan of Treatment Not on file documented as of this encounter Visit Diagnoses Diagnosis Abdominal or pelvic swelling, mass or lump, unspecified site- Primary documented in this encounter
--- OUTSIDE RECORDS SUMMARY | 2025-10-02 13:43 | XMS_ITS | Encounter Summary ---
Author Organization [facility] Address [address] [place] [address] Care Team Providers Care Police Lieutenant Patrol Name Role Phone Unavailable Primary Care Provider Unavailabl e Encounter Details Date Type Department Care Team (Latest Contact Info) Description 04/21/2007 Outpatient Historical [facility] Gen Spec Surg [place] [address] [place] [address] Efren Lin MD NO ADDRESS ON FILE Abdominal Pain, Unspecified Site (Primary Dx) Social History Tobacco Use Types Packs/Day Years Used Date Smoking Tobacco: Never Assessed Comments Unknown Sex and Gender Information Value Date Recorded Sex Assigned at Not on file Legal Sex Female 3:16 AM STEAM TABLE ATTENDANT Gender Identity Not on file Sexual Orientation Not on file documented as of this encounter Plan of Treatment Not on file documented as of this encounter Visit Diagnoses Diagnosis Abdominal pain, unspecified site- Primary documented in this encounter
--- OUTSIDE RECORDS SUMMARY | 2025-10-02 13:43 | XMS_ITS | Encounter Summary ---
Author Organization [facility] Address [address] [place] [address] Care Team Providers Care Reactor Service Operator Name Role Phone Jarred Arcos MD Primary Care Provider + Encounter Details Date Type Department Care Team (Latest Contact Info) Description 07/28/2005 Outpatient Historical [facility] Imaging Services[place] [address] [place] [address] Markie Tavarez MD NO ADDRESS ON FILE COUGH (Primary Dx) Social History Tobacco Use Types Packs/Day Years Used Date Smoking Tobacco: Never Assessed Comments Unknown Sex and Gender Information Value Date Recorded Sex Assigned at Not on file Legal Sex Female 3:16 AM DRY CANS BACK TENDER Gender Identity Not on file Sexual Orientation Not on file documented as of this encounter Plan of Treatment Not on file documented as of this encounter Visit Diagnoses Diagnosis Cough- Primary documented in this encounter Care Teams Reactor Service Operator Relationship Specialty Start Date End Date Jarred Arcos MD [address] [phone] PCP - General 08/13/05 04/20/07 documented as of this encounter
--- NOTE | 2025-10-02 13:53 | ED_ITS ---
HPI - Neuro Symptoms/Deficit 2 General: Chief Complaint: Neuro Symptoms/Deficit Stated Complaint: Stroke Alert Time Seen by Provider: 10/02/25 13:36 Source: patient and EMS Mode of arrival: EMS Limitations: no limitations History of Present Illness: 75-year-old female is here from [facility] as a stroke alert. Patient is there currently post hip fracture repair 6 weeks ago. Per EMS patient was last known normal at 9 AM since then she has been having word finding difficulty. Here she does have some slight word salad at times denies any focal weaknesses has a mild headache denies any recent illness Related Data Previous Rx's ?Medication ?Instructions ?Recorded diltiazem HCl 60 mg tablet See Rx Instructions .Route 11/26/24 .COMPLEX #270 tabs metolazone 5 mg tablet 5 mg PO .COMPLEX #20 tabs metoprolol succinate 100 mg See Rx Instructions .Route 05/13/25 tablet,extended release 24 hr .COMPLEX #180 tabs potassium chloride 10 mEq See Rx Instructions .Route 0 06/25/25 tablet,extended release .COMPLEX #180 tabs benazepril 10 mg tablet See Rx Instructions .Route 0 07/24/25 .COMPLEX #180 tabs furosemide 40 mg tablet See Rx Instructions .Route 1 .COMPLEX #180 tabs atorvastatin 20 mg tablet See Rx Instructions .Route 1 .COMPLEX #90 tabs warfarin 2 mg tablet See Rx Instructions .Route 1 11/10/24 .COMPLEX #180 tabs hydrocodone 5 mg-acetaminophen 325 1 tab PO Q6H PRN Mo derate To 09/26/25 mg tablet Severe Pain #30 tabs Allergies Allergy/AdvReac Type Severity Reaction Status Date / Time Sulfa (Sulfonamide Allergy Unknown Verified 02/07/25 18:36 Antibiotics) PFSH ED 2 PFSH: Medical History Leiomyoma Mesenteric artery stenosis 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, without long-term current use of insulin 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 UTI (urinary tract infection) Enteritis Acute dehydration Atrial fibrillation with RVR Chest pain Dyspnea Chronic atrial fibrillation, unspecified Congestive heart failure Surgical History Hx of inguinal hernia surgery Social History Smoking and tobacco/nicotine status: never used tobacco/nicotine Alcohol intake: never Substance/Drug Use: never NIH stroke score 2 NIHSS: Level Of Consciousness - 1a: 0 Level Of Consciousness Questions - 1b: Both Correct Level Of Consciousness Commands - 1c: Both Correct Best Gaze - 2: Normal Visual Watson - 3: No Visual Loss Facial Palsy - 4: N ormal Motor Arm Right - 5: No Drift Motor Arm Left - 5: No Drift Motor Leg Right - 6: No Drift Motor Leg Left - 6: No Drift Limb Ataxia - 7: A bsent Sensory - 8: Normal Best Language - 9: Mild/Moderate Aphasia D ysarthia - 10: Normal Extinction And Inattention - 11: 0 Score: Total Score: 1 Physical Exam 2 Const: COMMON NORMALS: patient oriented x3 HENMT: COMMON NORMALS: normocephalic and atraumatic HEAD & SCALP: n ormocephalic and atraumatic Eye: COMMON NORMALS: Equal, round and reactive pupils present and EOMs intact bilaterally PUPIL: Yes Equal, round and reactive pupils present Neck/C-Spine: COMMON NORMALS: full ROM and supple Chest: COMMONS NORMALS: normal inspection of the chest and normal palpation of entire chest wall Resp: COMMON NORMALS: normal respiratory effort, No retractions, No use of accessory muscles and clear to auscultation bilaterally AUSCULTATION: clear to auscultation bilaterally Cardio: COMMON NORMALS: regular rate, regular rhythm and No murmurs present (Cardio) RATE: regular rate RHYTHM: regular rhythm Extremity: COMMON NORMALS: normal to inspection and full ROM Neuro: COMMON NORMALS: patient oriented x3 and moves all extremities C RANIAL NERVES: Yes CN normal except as noted SPEECH: expressive aphasia Psych: COMMON NORMALS: mental status grossly normal, Normal thought process present and cooperative THOUGHT PROCESS: Normal thought process present Skin: COMMON NORMALS: no rashes or lesions noted and no wounds GENERAL SKIN EXAM: no rashes or lesions noted Course 2 Vital Signs: Vital signs: Vital Signs Pulse Rate 79 10/02/25 13:46 Respiratory Rate 16 10/02/25 13:42 Blood Pressure 161/100 10/02/25 13:46 Pulse Oximetry 97 10/02/25 13:46 MDM - Neuro Symptoms/Deficit Medical Decision Making Patient presents here with word finding difficulty expressive aphasia. Differential includes intracerebral hemorrhage, CVA, infection. Head CT CTA both showed no signs of acute stroke. Patient is not a lytic candidate as her last known normal was 9 AM and she is on Eliquis. Did interpret EKG showed A- fib heart rate [address] elevation QRS 108 QTc 453. She had no significant lab abnormalities no signs of UTI. Did give her a dose of aspirin here I did speak to hospitalist Dr. Monteiro and will admit for further stroke rule out Medical Records I reviewed the patient's medical records. Lab Data I reviewed the patient's lab results. 10/02/25 13:21 10/02/25 13:[address] 10/02/25 13:34 IMPRESSION: 1. Age appropriate supratentorial and infratentorial atrophy. 2. Moderate chronic white matter microvascular ischemic disease. 3. No acute intracranial abnormality identified. ASSESSMENT: ASPECTS ([place] Stroke Program Early CT Score) is 10. ADDENDUM: 10/02/25 0981 THIS REPORT CONTAINS FINDINGS THAT MAY BE CRITICAL TO PATIENT CARE. The findings were verbally communicated by me to DR. 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 The findings were acknowledged and understood. Head/Neck CTA 10/02/25 13:34 IMPRESSION: 1. Moderate stenosis left internal carotid artery cavernous segment. 2. No acute intracranial vascular abnormality identified. IMPRESSION: 1. Moderate-severe stenosis left vertebral artery origin. 2. Moderate right common carotid artery bifurcation stenosis. 3. Severe proximal right subclavian artery stenosis. Recommend clinical assessment for vertebral artery steal syndrome. 4. No acute extracranial vascular abnormality identified. REFERENCES: NASCET CRITERIA. The degree of stenosis in the cervical segment of the internal carotid artery is based on NASCET criteria. Normal is no stenosis. Mild is less than 50% stenosis. Moderate is 50-69% stenosis. Severe is 70% to 99% stenosis. Total occlusion is no detectable patent lumen. Chest X-Ray 10/02/25 14:10 IMPRESSION: 1. Mild pulmonary hypoexpansion. 2. Mild pulmonary vascular congestion. Laboratory Results WBC 14.76 10^3/uL (3.29-11.43) H 10/02/25 13:21 RBC 4.24 10^6/uL (3.85-5.65) 10/02/25 13:21 Hgb 12.80 g/dL (11.27-16.99) 10/02/25 13:21 Hct 38.7 % (36-47) 10/02/25 13:21 MCV 91.3 fl (85-98) 10/02/25 13:21 MCH 30.2 pg (27-33) 10/02/25 13:21 MCHC 33.1 g/dL (30-55) 10/02/25 13:21 RDW 13.2 % (12.1-15.1) 10/02/25 13:21 Plt Count 341 10^3/cmm (157-399) 10/02/25 13:21 MPV 9.7 fL (7.4-10.4) 10/02/25 13:21 Neut % (Auto) 80.6 % 10/02/25 13:21 Lymph % (Auto) 6.3 % 10/02/25 13:21 [place] % (Auto) 11.5 % 10/02/25 13:21 Eos % (Auto) 0.4 % 10/02/25 13:21 Baso % (Auto) 0.3 % 10/02/25 13:21 Neut # (Auto) 11.89 10^3/uL (1.8-7.7) H 10/02/25 13:21 Lymph # (Auto) 0.9 10^3/uL (0.8-4.8) 10/02/25 13:21 [place] # (Auto) 1.7 10^3/uL (0.2-0.9) H 10/02/25 13:21 Eos # (Auto) 0.1 10^3/uL (0.0-0.8) 10/02/25 13:21 Baso # (Auto) 0.1 10^3/uL (0.0-0.1) 10/02/25 13:21 Nucleated RBC % (auto) 0 % 10/02/25 13:21 Nucleated RBCs # 0.0 /100WBC 10/02/25 13:21 PT 15.50 SECONDS (12.1-14.9) H 10/02/25 13:21 INR 1.15 (0.8-1.2) 10/02/25 13:21 APTT 21.7 SECONDS (23.9-36.7) L 10/02/25 13:21 Sodium 131 mmol/L (136-145) L 10/02/25 13:21 Potassium 3.8 mmol/L (3.5-5.1) 10/02/25 13:21 Chloride 84 mmol/L (98-107) L 10/02/25 13:21 Carbon Dioxide 34 mmol/L (22-29) H 10/02/25 13:21 Anion Gap 16.8 (5-19) 10/02/25 13:21 BUN 38 mg/dL (8-23) H 10/02/25 13:21 Creatinine 1.3 mg/dL (0.5-0.9) H 10/02/25 13:21 GFR Calculation Not Reportable 10/02/25 13:21 Glucose 178 mg/dL (65-115) H 10/02/25 13:21 POC Glucose 156 mg/dL (70-110) H 10/02/25 13:53 Calculated Osmolality 285 mOsm/kg (285-295) 10/02/25 13:21 Calcium 9.5 mg/dL (8.5-10.5) 10/02/25 13:21 Total Bilirubin 1.1 mg/dL (0.15-1.2) 10/02/25 13:21 AST 21 U/L (0-32) 10/02/25 13:21 ALT 8 U/L (0-33) 10/02/25 13:21 Alkaline Phosphatase 118 U/L (35-105) H 10/02/25 13:21 Total Protein 7.7 g/dL (6.6-8.7) 10/02/25 13:21 Albumin 4.2 g/dL (3.5-5.2) 10/02/25 13:21 Globulin 3.5 g/dL (1.3-4.6) 10/02/25 13:21 Urine Color Yellow (Yellow) 10/02/25 14:08 Urine Appearance Clear (CLEAR) 10/02/25 14:08 Urine pH 5.5 (5-7) 10/02/25 14:08 Ur Specific Hannah 1.012 (1.005-1.030) 10/02/25 14:08 Urine Protein Negative (Negative) 10/02/25 14:08 Urine Glucose (UA) Negative (Normal) 10/02/25 14:08 Urine Ketones Negative (Negative) 10/02/25 14:08 Urine Blood Negative (Negative) 10/02/25 14:08 Urine Nitrate Negative (Negative) 10/02/25 14:08 Urine Bilirubin Negative (Negative) 10/02/25 14:08 Urine Urobilinogen 0.2 mg/dL (Negative) 10/02/25 14:08 Ur Leukocyte Esterase Negative (Negative) 10/02/25 14:08 Urine RBC 0-2 /hpf (0-2) 10/02/25 14:08 Urine WBC 0-5 /hpf (0-5) 10/02/25 14:08 Ur Squamous Epith Cells 0-5 /hpf (0-5) 10/02/25 14:08 Amorphous Sediment Not Reportable 10/02/25 14:08 Urine Bacteria None seen /hpf (NONE) 10/02/25 14:08 Hyaline Casts 1.65 /lpf 10/02/25 14:08 Urine Opiates Screen Positive ng/mL (Negative) H 10/02/25 14:08 Ur Barbiturates Screen Negative ng/mL (Negative) 10/02/25 14:08 Ur Phencyclidine Scrn Negative ng/mL (Negative) 10/02/25 14:08 Ur Amphetamines Screen Negative ng/mL (Negative) 10/02/25 14:08 U Benzodiazepines Scrn Negative ng/mL (Negative) 10/02/25 14:08 Urine Cocaine Screen Negative ng/mL (Negative) 10/02/25 14:08 U Marijuana (THC) Screen Negative ng/mL (Negative) 10/02/25 14:08 All radiology interpretation(s) finalized by discharge EKG Data EKG 1: I personally reviewed and interpreted this EKG as follows: EKG interpretation date: 10/02/25 EKG interpretation time: 13:57 Interpretation: AFIB HR [address] elevation qrs 108 qtc 453 Discharge Plan Discharge Patient Disposition: Placed in Observation Clinical Impression: Cerebrovascular accident Coding Level of Care Code ED Change Management Expert for Destiny Rascon
[2025-10-02 14:08] LABS: Hematocrit 38.7 % (36-47); Hemoglobin 12.80 g/dL (11.27-16.99); Mean Corpuscular HGB Conc 33.1 g/dL (30-55); Mean Corpuscular Hemoglobin 30.2 pg (27-33); Mean Corpuscular Volume 91.3 fl (85-98); Nucleated Red Blood Cells % 0 %; Platelet Count 341 10^3/cmm (157-399); Red Blood Count 4.24 10^6/uL (3.85-5.65); White Blood Count 14.76 10^3/uL (3.29-11.43)
--- NOTE | 2025-10-02 14:10 | XRR_ITS ---
PROCEDURE INFORMATION: Exam: XR Chest Exam date and time: 10/02/2025 2:10 PM Age: 75 years old Clinical indication: Other: CVA TECHNIQUE: Imaging protocol: Radiologic exam of the chest. Views: 1 view. Other technique: Frontal portable semiupright view of the chest. COMPARISON: CR (CHEST, ) 09/23/2025 6:14 PM FINDINGS: Tubes, catheters and devices: EKG leads are present overlying the chest. Lungs: Mild symmetric pulmonary hypoexpansion. The pulmonary vasculature is mildly congested. The lungs are otherwise peripherally clear bilaterally. Pleural spaces: No pleural effusion. No pneumothorax. Heart/Mediastinum: Stable moderate cardiomegaly. Mediastinum: Stable. Vasculature: Moderate aortic arch atherosclerotic calcification without ectasia. Bones/joints: Stable. XR/XR chest 1V portable [id number] IMPRESSION: 1. Mild pulmonary hypoexpansion. 2. Mild pulmonary vascular congestion.
[2025-10-02 14:31] LABS: INR 1.15 (0.8-1.2); Partial Thromboplastin Time 21.7 SECONDS (23.9-36.7); Prothrombin Time 15.50 SECONDS (12.1-14.9)
[2025-10-02 14:32] LABS: Alanine Aminotransferase 8 U/L (0-33); Albumin Level 4.2 g/dL (3.5-5.2); Alkaline Phosphatase 118 U/L (35-105); Anion Gap 16.8 (5-19); Aspartate Amino Transferase 21 U/L (0-32); Blood Urea Nitrogen 38 mg/dL (8-23); Calcium 9.5 mg/dL (8.5-10.5); Carbon Dioxide 34 mmol/L (22-29); Chloride 84 mmol/L (98-107); Globulin 3.5 g/dL (1.3-4.6); Glucose 178 mg/dL (65-115); Osmolality Calculated 285 mOsm/kg (285-295); Potassium 3.8 mmol/L (3.5-5.1); Sodium 131 mmol/L (136-145); Total Protein 7.7 g/dL (6.6-8.7)
[2025-10-02 14:47] LABS: Glucose Urine UA Negative (Normal); Nitrate Urine Negative (Negative); Specific Gravity, Urine 1.012 (1.005-1.030)
[2025-10-02 14:52] LABS: Add Urine Microscopic? YES
[2025-10-02 14:54] LABS: PCP Screen Urine Negative (Negative)
--- NOTE | 2025-10-02 17:19 | P.HP_ITS ---
Providers/Chief Complaint 2 Admitting Physician: Arthur Monteiro Primary Care Provider: Francesco Parr MD Chief Complaint: Stroke Alert History of Present Illness Christiane Winkler is a 75 year old female with PMH of chronic atrial fibrillation, heart failure, DMT2, mesenteric artery stenosis Patient presented to the ED on 10/02/2025 as a stroke alert from [facility]. Prior to presentation patient exhibited confusion and difficulty with word finding. Patient was noted to have severe frontal headache earlier in the day. Last known well at 9 AM on 10/02/2025. PT on warfarin anticoagulation for underlying chronic atrial fibrillation. Not a candidate for antithrombotic therapy, due to history of anticoagulation and presented outside of treatment window. Recently, underwent a right hip surgery. Denies fever, chills, chest pain, palpitations, shortness of breath, dizziness, syncopal events, abdominal pain, gastrointestinal distress and change in micturition. ED Work-Up reviewed Presenting VS: Temp 98.4 BP 161/100 HR 79 SpO2 98% on room air EKG: AFIB (v-rate 81) NIHSS in ED was 1 Labs 10/02/25 1408 Hemogram WBC 14.76 RBC 4.24 PLT 341 HGB 12.8 HCT 38.7 Coags PT 15.5 INR 1.15 aPTT 21.7 Chemistry Na 131 K 3.8 Cl 84 Ca 9.5 Glu 150 CO2 34 AG 16 BUN 38 Cr 1.3 AST 21 ALT 8 ALP 118 T.Bili 1.1 Urinalysis SG 1.012, no indication of infectious process Toxicology UDS + opioids CT head without acute intracranial abnormality CTA head 1. Moderate-severe stenosis left vertebral artery origin. 2. Moderate right common carotid artery bifurcation stenosis. 3. Severe proximal right subclavian artery stenosis. Recommend clinical assessment for vertebral artery steal syndrome. 4. No acute extracranial vascular abnormality identified. CTA neck 1. Moderate stenosis left internal carotid artery cavernous segment. 2. No acute intracranial vascular abnormality identified. CXR 10/02/25 1. Mild pulmonary hypoexpansion. 2. Mild pulmonary vascular congestion. Review of Systems 2 General: Reports: 10 or more systems reviewed and unremarkable except in HPI and below Medications/Allergies Home Medications ?Medication ?Instructions ?Recorded ?Confirmed ?Last Taken ?Type diltiazem HCl 60 mg tablet See Rx Instructions .Route 11/26/24 10/02/25 10/02/25 08:00 Rx .COMPLEX #270 tabs metolazone 5 mg tablet 5 mg PO .COMPLEX #20 tabs 10/02/25 10/02/25 08:00 Rx metoprolol succinate 100 mg See Rx Instructions .Route 05/13/25 10/02/25 10/02/25 08:00 Rx tablet,extended release 24 hr .COMPLEX #180 tabs potassium chloride 10 mEq See Rx Instructions .Route 0 06/25/25 10/02/25 10/02/25 08:00 Rx tablet,extended release .COMPLEX #180 tabs benazepril 10 mg tablet See Rx Instructions .Route 0 07/24/25 10/02/25 10/02/25 08:00 Rx .COMPLEX #180 tabs furosemide 40 mg tablet See Rx Instructions .Route 1 10/02/25 10/02/25 08:00 Rx .COMPLEX #180 tabs atorvastatin 20 mg tablet See Rx Instructions .Route 1 10/02/25 10/02/25 08:00 Rx .COMPLEX #90 tabs warfarin 2 mg tablet See Rx Instructions .Route 1 11/10/24 10/02/25 10/02/25 08:00 Rx .COMPLEX #180 tabs hydrocodone 5 mg-acetaminophen 325 1 tab PO Q6H PRN Mo derate To 09/26/25 10/02/25 10/02/25 11:30 Rx mg tablet Severe Pain #30 tabs Allergies Allergy/AdvReac Type Severity Reaction Status Date / Time Sulfa (Sulfonamide Allergy Unknown Verified 02/07/25 18:36 Antibiotics) PFSH Acute 2 PFSH: Medical History (Updated 10/02/25 @ 20:37 by Nanci Bruner NP) Leiomyoma Mesenteric artery stenosis 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, without long-term current use of insulin 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 UTI (urinary tract infection) Enteritis Acute dehydration Atrial fibrillation with RVR Chest pain Dyspnea Chronic atrial fibrillation, unspecified Congestive heart failure Surgical History Hx of inguinal hernia surgery Social History Smoking and tobacco/nicotine status: never used tobacco/nicotine Alcohol intake: never Substance/Drug Use: never Vitals/I&O/Wt Last Vital Signs Pulse 69 10/02/25 16:37 Resp 16 10/02/25 13:42 BP 146/64 10/02/25 16:37 Pulse Ox 98 10/02/25 16:37 Weight last 48 hrs Weight 57.606 kg Physical Exam 2 Narrative: Constitutional: NAD Psychiatric: No confusion or delirium Neuro: see NIHSS assessment below Head: NC/AT Eyes: PERRLA, EOMI Ears: Normal external ears. Hard of hearing. Nose: Normal external nose. No epistaxis. Throat: Dry MM Respiratory: CTAB. No accessory muscle use. On room air. Cardiovascular: Irregular. No murmur. Extremities: No edema bilaterally Gastrointestinal: Soft. NT. ND. +BS Genitourinary: No pastrana catheter Musculoskeletal: Skin: Pale appearing. No bruising or open lesions noted. NIHSS score of 4 1a. LOC 0 1a. LOC questions 1 answered month, n otes year as 52 repeatedly 1c. LOC commands 0 2. Best gaze 0 3. Visual 0 4. Facial palsy 0 5a. LUE 0 5b. RUE 0 6a. LLE 0 6b. RLE 1 (had recent right hip rincon rgery) 7. Limb ataxia 0 8. Sensory 0 9. Best language 1 receptive aphasia 10. Dysarthria 1 very mild, but may resendiz ve some at baseline per family 11. Extinction 0 Data 10/02/25 13:21 10/02/25 13:21 Other Labs: Labs 10/02/25 1321 reviewed Hemogram WBC 14.76 RBC 4.24 PLT 341 HGB 12.8 HCT 38.7 Coags PT 15.5 INR 1.15 aPTT 21.7 Chemistry Na 131 K 3.8 Cl 84 Ca 9.5 Glu 150 CO2 34 AG 16 BUN 38 Cr 1.3 AST 21 ALT 8 ALP 118 T.Bili 1.1 Urinalysis SG 1.012, no indication of infectious process Toxicology UDS + opioids CT Head: Radiologist's impression: CT Head wo contrast, 10/02/25, reviewed 1. Age appropriate supratentorial and infratentorial atrophy. 2. Moderate chronic white matter microvascular ischemic disease. 3. No acute intracranial abnormality identified. Other Imaging: Radiologist's impression: CTA Head With Contrast, Arteriography 1. Moderate-severe stenosis left vertebral artery origin. 2. Moderate right common carotid artery bifurcation stenosis. 3. Severe proximal right subclavian artery stenosis. Recommend clinical assessment for vertebral artery steal syndrome. 4. No acute extracranial vascular abnormality identified. CTA Neck 1. Moderate stenosis left internal carotid artery cavernous segment. 2. No acute intracranial vascular abnormality identified. A&P Assessment and plan 1. Cerebrovascular accident: 2. Aphasia: 3. Subclavian artery stenosis: 4. Chronic atrial fibrillation, unspecified: 5. Heart failure with reduced ejection fraction: 6. Leukocytosis: Plan: # Aphasia (expressive and receptive) LKW 10/02/25 at 9 am Not a candidate for thrombolytic therapy NIHSS on presentation (in ED) 1 CTH w/o acute intracranial abnormality CTA Head & Neck Right subclavian artery -> severe stenosis Left vertebral artery -> [id number] stenosis Right carotid bifurcation -> moderate stenosis Left intracranial ICA -> moderate stenosis - neuro checks and VS per stroke order set - MRI head in AM - Echo 09/23/25 LVEF 35-40% - Risk stratify: A1c and FLP in am - Received ASA 325 mg in ED Continue ASA 325 mg daily starting 10/03 - Optimize statin dose, atorvastatin 40 mg QD (increased from 20 -> 40) - Consult PT, OT, CUSHION STUFFER PT, OT evaluation pending Per CUSHION STUFFER passed swallow evaluation, diet advanced to cardiac - Consult case management for discharge planning # Right subclavian artery severe stenosis # Left vertebral artery [id number] stenosis # Right carotid bifurcation -> moderate stenosis - Patient would benefit from a vascular surgery referral - Aggressive management of risk factors # Chronic atrial fibrillation # Subtherapeutic INR EKG w/ rate controlled AFIB INR 1.15 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 diltiazem 60 TID metoprolol succinate 100 mg QD - HOLD AUTOMATIC PACKER OPERATOR rate control meds, re: BP soft - Resume warfarin anticoagulation w/ daily INR checks (x3 days ordered) pharmacy to dose warfarin goal INR 2-3 # HFrEF Echo 09/23/25 LVEF 35-40% CXR with mild pulmonary vascular congestion Furosemide 40 mg BID Not in decompensated state on exam - give 250 ml bolus x1 now and another at 0200 am, re: soft BP - hold diuretic at this time, re-evaluate in am - check NTpro-BNP # Leukocytosis WBC 14.76 No fever or other systemic symptoms CXR without consolidation UA not indicative of infectious findings - Leukocytosis possibly reactive, trend - If continues to worsen then will pursue full infectious workup # HLD see aphasia plan of care, statin dose adjusted - atorvastatin 40 mg daily - lipid profile in am # DM 2T No A1c history on record No on diabetic meds - check A1c - glucose checks ac/hs - SSI low dose regimen - hypoglycemia protocol # s/p recent intertrochanteric right hip fracture - PT / OT consulted VTE PPx: SCDs and warfarin PDMP PDMP Reviewed: Not Reviewed Attestations 2 Medical Necessity Statement*: Patient admitted under observation status for aphasia/stroke workup. Anticipated safe disposition within < 2 days. Time Spent in Patient Care: I spent a total of 87 minutes today in the evaluation and management of this patient. Time spent included reviewing records, evaluating the patient, interpreting diagnostic studies, discussing care with family and answering questions, coordinating care with nursing and documenting encounter/stroke evaluation. Coding Level of Care Code 27557 Diagnoses Cerebrovascular accident I63.9 Aphasia R47.01 Subclavian artery stenosis I77.1 Chronic atrial fibrillation, unspecified I48.20 Heart failure with reduced ejection fraction I50.20 Leukocytosis D72.829 Time Spent (min) 87
[2025-10-02 22:27] LABS: NT Pro B Type Natriuretic Pept 7477 pg/mL (0-450)
[2025-10-03 02:32] VITALS: BP 132/59; PULSE 78; RESP 16; TEMP 36.6; O2SAT 95
[2025-10-03 05:58] LABS: Alanine Aminotransferase 7 U/L (0-33); Albumin Level 3.5 g/dL (3.5-5.2); Alkaline Phosphatase 94 U/L (35-105); Anion Gap 13.4 (5-19); Aspartate Amino Transferase 18 U/L (0-32); Blood Urea Nitrogen 32 mg/dL (8-23); Calcium 8.7 mg/dL (8.5-10.5); Carbon Dioxide 33 mmol/L (22-29); Chloride 91 mmol/L (98-107); Cholesterol 142 mg/dL (0-200); Globulin 2.8 g/dL (1.3-4.6); Glucose 100 mg/dL (65-115); HDL Cholesterol 34 mg/dL (60-100); Osmolality Calculated 285 mOsm/kg (285-295); Potassium 3.4 mmol/L (3.5-5.1); Sodium 134 mmol/L (136-145); Total Protein 6.3 g/dL (6.6-8.7); Triglycerides 94 mg/dL (0-150)
[2025-10-03 06:22] LABS: Estmated Average Glucose 151; Hemoglobin A1C 6.9 % (4.0-6.0)
[2025-10-03 07:00] VITALS: BP 151/81; PULSE 81; RESP 17; TEMP 36.8; O2SAT 97
[2025-10-03 10:33] LABS: INR 1.33 (0.8-1.2); Prothrombin Time 17.40 SECONDS (12.1-14.9)
[2025-10-03 11:00] VITALS: BP 159/81; PULSE 96; RESP 17; TEMP 36.7; O2SAT 96
--- NOTE | 2025-10-03 13:18 | PM.PN ---
Subjective Subjective: The patient was seen in the morning, her dysphasia has settled and she is ambulating independently no dizziness or any other focal neurological deficit at the moment patient was found to have reduced EF on echo for stroke work up and is more or less the same, no acute changes Vitals/I&O/Wt Last Vital Signs Temp 98.0 F 10/03/25 11:00 Pulse 96 10/03/25 11:00 Resp 17 10/03/25 11:00 BP 159/81 10/03/25 11:00 Pulse Ox 96 10/03/25 11:00 O2 Del Method Room Air 10/03/25 11:00 10/02/25 10/03/25 10/03/25 22:59 06:59 14:59 Intake Total 500 / 500 240 / 240 Balance 500 / 500 240 / 240 Weight last 48 hrs Weight 57.153 kg Weight 56.501 kg Weight 57.606 kg Physical Exam Narrative: General: Alert and oriented, lying comfortably without any distress HEENT: Normocephalic, atraumatic, grossly unremarkable exam Cardio: normal rate rhythm, normal S1-S2 without any murmurs, rubs, or gallops and JVD normal Respiratory: normal vascular breathing on auscultation without any wheezes, stridor, rhonchi GI: Abdomen soft, nontender, nondistended, normoactive bowel sounds present all 4 quadrants, Neuro: intact cranial nerves motor and sensory and cerebellar/coordination function without any focal neurological deficit at the moment, past pointing and dysdiadokokensia was absent, normal heel to tyler test. Behavior: Appropriate and cooperative Extremities: Adequate palpable pulses, mild trace edema Data 10/02/25 13:21 10/03/25 05:12 A&P Assessment and plan 1. Cerebrovascular accident: LKW 10/02/25 at 9 am Not a candidate for thrombolytic therapy NIHSS on presentation (in ED) 1 CTH w/o acute intracranial abnormality CTA Head & Neck showed diffuse vascular disease ( for detailed report refer to the imaging) Plan: -neurology consulted since the patient has advanced vascular disease on CTA, -to keep the patient on aspirin 81mg daily and to keep on warfarin -warfarin to consider to switch to eliquis, however to confirm if its affordable to her, since last time it was not. to have onsite case manager onboard for it tomorrow? -atorvastatin 40m daily -lipid panel and hba1c reviewed -OT/PT evaluation -neurochecks every shift -telemetry - MR brain as outpatient since it wont change any management and the patient is already on guideline based management, currently improving - neurology consulted and to cont warfarin and aspirin - neurology referral at the time of discharge with Dr Marques 2. Chronic atrial fibrillation, unspecified: -EKG w/ rate controlled AFIB however 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 INR since the patient skipped her Warfarin dose due to recent surgery and GERD, INR 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 -patient couldnt afford eliquis earlier, later to check with the director of casework department and pharmacist to arrange it if possible otherwise to cont on warfarin -patient on heart rate control meds, diltiazem 60 TID and metoprolol succinate 100 mg QD, resume metoprolol ER 50 mg daily which is at half dose of home at the moment since the pt initially BP was on the soft sides and needed fluids, currently the BP is stable and gradually to increase to 100 mg daily as per home dose - goal INR 2-3, check INR daily until therapeutic - telemetry 3. Heart failure with reduced ejection fraction: Echo 09/23/25 LVEF 35-40% CXR with mild pulmonary vascular congestion - Furosemide 40 mg BID since the BP is on the higher side and pt has HFrEF with mild trace edema although euvolemic but to avoid any overt signs of fluid overload - resume half home dose of metoprolol extended release 50 mg daily -Initiate small dose of Entresto and if tolerates and no DANITZA then addition of further Jardiance and spironolactone that can be done as outpatient. Patient case already discussed with the cardiology -Cardiology referral at the time of discharge - hold diltiazem at the moment, and later to initiate if BP is stable - hold any BP lowering Medications if the BP is less than 100 systolic - monitor hemodynamics and maintain MAP above 65mmhg 4. Leukocytosis: No fever or other systemic symptoms CXR without consolidation UA not indicative of infectious findings - Leukocytosis possibly reactive, trend - If continues to worsen or signs and symptoms of infection then will pursue full infectious workup and to initiate antibiotics 5. 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, without long-term current use of insulin: HbA1c reviewed Insulin sliding scale to continue 6. Vascular disease: Patient having severe vascular disease involving multiple vessels of the brain and body as well as per review of her diagnostics and previous retrospective chart Continue aspirin, warfarin and statins Cardiology and vascular to be followed as outpatient 7. Intertrochanteric fracture of right hip: Patient s/p repair just recently on 09/25/2025 Continue OT PT Ortho at the time of discharge to be followed Adequate analgesia as per pain scale Plan: VTE/full dose anticoagulation: warfarin for atrial fibrillation PDMP PDMP Reviewed: Not Reviewed Attestations Medical Necessity Statement*: Patient will stay overnight for the management of her heart failure and stroke and optimization of GDMT Time Spent in Patient Care: 16 - 35 minutes (>than 50% of time spent in counselling and/or direct pt care on unit). Other Attestations: Patient condition has been discussed at length with the patient/family, I have independently reviewed the chart labs imaging/diagnostics/EKG. the goals of care and code status with the patient/family/NOK/legal insurance follow up representative, and documented accordingly. The management has been done according to the current clinical condition with respect to patient goals of care and based on recommendations/guidelines. The patient/family has been informed about the current condition and further plan of care. Agreed with the plan of care and understood without any language barrier. Every effort was made to ensure accuracy of water purifier operator. Any obvious errors or omissions should be clarified with the author of the document. Coding Level of Care Code 16972 Diagnoses Cerebrovascular accident I63.9 Chronic atrial fibrillation, unspecified I48.20 Heart failure with reduced ejection fraction I50.20 Leukocytosis D72.829 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, without long-term current use of insulin E11.9 Vascular disease I99.9 Intertrochanteric fracture of right hip S72.141A
[2025-10-03 15:00] VITALS: BP 135/78; PULSE 118; RESP 14; TEMP 37.3; O2SAT 95
[2025-10-03] MEDS: metoprolol succinate ER (24 HR) 50 mg Tablet PO (16:08)
--- NOTE | 2025-10-03 17:31 | USCV_ITS ---
Christiane Winkler Age: 75 Gender: F : 1950 Exam Date: 10/03/2025 01:04 Ordering Phys: Nanci Bruner NP Technologist: AARTI Exam Location: [facility] [place] Indication: Acute stroke, Chronic Afib, CHF, DM2 BP: 96 / 61 HR: 80 Rhythm: Atrial fibrillation Technical Quality: Adequate MEASUREMENTS (Male / Female) Normal Values 2D ECHO LV Diastolic Diameter PLAX 3.6 cm 4.2 - 5.9 / 3.9 - 5.3 cm IVS Diastolic Thickness 1.9 cm 0.6 - 1.0 / 0.6 - 0.9 cm IVS Systolic Thickness 1.5 cm LVPW Diastolic Thickness 1.2 cm 0.6 - 1.0 / 0.6 - 0.9 cm LVPW Systolic Thickness 1.4 cm LVOT Diameter 1.6 cm LV Ejection Fraction 2D Teich 31.7 % LV Ejection Fraction MOD 4C 40.6 % LV Ejection Fraction MOD 2C 49.0 % LV Ejection Fraction 2C AL 48.3 % LA Diameter 5.6 cm Aorta at Sinotubular Diameter 2.3 cm IVC Diameter 1.3 cm M-MODE LA Ao Ratio MM 2.4 AV Cusp Separation MM 2.0 cm DOPPLER AV Peak Velocity 110.0 cm/s LVOT Peak Velocity 81.0 cm/s AV Area Cont Eq vti 1.6 cm squared AV Area Cont Eq pk 1.4 cm squared MV Peak Velocity 115.0 cm/s MV Area PHT 3.7 cm squared Mitral E to A Ratio 222.0 TV Peak Velocity 313.0 cm/s TR Peak Velocity 342.0 cm/s TR Peak Gradient 46.8 mmHg TV Peak E Velocity 45.0 cm/s PV Peak Velocity 83.0 cm/s FINDINGS Left Ventricle Moderately reduced LV systolic function. Severe hypokinesis of inferior inferoseptal wall. The rest of the wall segments are mildly hypokinetic. Estimated LVEF is 40%. Right Ventricle Normal size RV with mildly reduced RV systolic function. Right Atrium Dilated right atrium Left Atrium Severely dilated left atrium IA Septum Normal interatrial septum. Mitral Valve Thickened mitral valve. Mild to moderate mitral regurgitation. No significant mitral stenosis.. Aortic Valve Thickened aortic valve, opens well. No aortic valve stenosis. Tricuspid Valve Mildly thickened tricuspid valve. Moderately severe tricuspid regurgitation. TV PG 37 mmHg. Moderately elevated right heart and pulmonary pressures = 45mmHg. Pulmonic Valve Pulmonic valve not well visualized. Trace pulmonary valve regurgitation. Pericardium No pericardial effusion. Aorta Normal aortic annulus size. IVC Normal inferior vena cava. CONCLUSIONS Atrial fibrillation noted during the study. Moderately reduced LV systolic function. Estimated LVEF 40% Segmental wall motion abnormalities as above. Mild to moderate mitral regurgitation and at least severe tricuspid regurgitation. Moderately elevated right heart and pulmonary pressures = 45 mmHg. Myles Snell MD (Electronically Signed) Final Date: 03 October 2025 12:43 S
[2025-10-03 19:00] VITALS: BP 132/85; PULSE 102; RESP 18; TEMP 36.8; O2SAT 97
[2025-10-03] MEDS: HYDROcodone-acetaminophen 5-325 mg Tablet 1 TAB PO (21:41)
[2025-10-03 23:00] VITALS: BP 134/86; PULSE 98; RESP 18; TEMP 36.8; O2SAT 97
[2025-10-04 03:00] VITALS: BP 132/84; PULSE 78; RESP 16; TEMP 36.9; O2SAT 96
[2025-10-04 04:00] LABS: Hematocrit 35.5 % (36-47); Hemoglobin 11.40 g/dL (11.27-16.99); Mean Corpuscular HGB Conc 32.1 g/dL (30-55); Mean Corpuscular Hemoglobin 29.6 pg (27-33); Mean Corpuscular Volume 92.2 fl (85-98); Nucleated Red Blood Cells % 0 %; Platelet Count 286 10^3/cmm (157-399); Red Blood Count 3.85 10^6/uL (3.85-5.65); White Blood Count 10.06 10^3/uL (3.29-11.43)
[2025-10-04 04:27] LABS: Alanine Aminotransferase 9 U/L (0-33); Albumin Level 3.6 g/dL (3.5-5.2); Alkaline Phosphatase 103 U/L (35-105); Anion Gap 14.6 (5-19); Aspartate Amino Transferase 22 U/L (0-32); Blood Urea Nitrogen 31 mg/dL (8-23); Calcium 8.7 mg/dL (8.5-10.5); Carbon Dioxide 31 mmol/L (22-29); Chloride 92 mmol/L (98-107); Globulin 2.8 g/dL (1.3-4.6); Glucose 114 mg/dL (65-115); Osmolality Calculated 285 mOsm/kg (285-295); Potassium 3.6 mmol/L (3.5-5.1); Sodium 134 mmol/L (136-145); Total Protein 6.4 g/dL (6.6-8.7)
[2025-10-04] MEDS: metoprolol succinate ER (24 HR) 50 mg Tablet PO (05:01)
[2025-10-04] MEDS: pantoprazole 40 mg SDV IVP (05:01)
[2025-10-04 06:06] VITALS: BP 133/85; PULSE 68; RESP 18; TEMP 36.9; O2SAT 95
[2025-10-04 07:14] VITALS: BP 149/69; PULSE 86; RESP 16; TEMP 36.6; O2SAT 96
[2025-10-04 09:44] LABS: INR 1.40 (0.8-1.2); Prothrombin Time 18.10 SECONDS (12.1-14.9)
[2025-10-04 11:34] VITALS: BP 108/67; PULSE 98; RESP 16; TEMP 36.7; O2SAT 98
--- NOTE | 2025-10-04 13:16 | PC.NURSE ---
Report called to Dejon BENITEZ at [facility] at this time.
[2025-10-04 14:00] VITALS: BP 108/67; PULSE 86; RESP 16; TEMP 36.7; O2SAT 97
--- NOTE | 2025-10-04 14:05 | PM.DCS ---
Discharge Providers Date of Admission: 10/03/25 20:55 Date of Discharge: October 04, 2025 Attending Provider at Admission: Arthur Monteiro Attending Provider at Discharge: Maribel Jamison MD Primary Care Provider: Francesco Parr MD Diagnoses at Discharge Discharge Diagnosis 1. Cerebrovascular accident: 2. Chronic atrial fibrillation, unspecified: 3. Heart failure with reduced ejection fraction: 4. Leukocytosis: 5. 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, without long-term current use of insulin: 6. Vascular disease: 7. Intertrochanteric fracture of right hip: Reason for Visit Reason for Visit: Stroke Alert Brief History: As per the retrospect notes based on the presentation: Christiane Winkler is a 75 year old female with PMH of chronic atrial fibrillation, heart failure, DMT2, mesenteric artery stenosis Patient presented to the ED on 10/02/2025 as a stroke alert from [facility]. Prior to presentation patient exhibited confusion and difficulty with word finding. Patient was noted to have severe frontal headache earlier in the day. Last known well at 9 AM on 10/02/2025. PT on warfarin anticoagulation for underlying chronic atrial fibrillation. Not a candidate for antithrombotic therapy, due to history of anticoagulation and presented outside of treatment window. Recently, underwent a right hip surgery. Denies fever, chills, chest pain, palpitations, shortness of breath, dizziness, syncopal events, abdominal pain, gastrointestinal distress and change in micturition. Hospital Course Hospital Course The patient was seen and further discussion was made with the neurologist since the patient had advanced diffuse vascular disease. CTH w/o acute intracranial abnormality. CTA Head & Neck showed diffuse vascular disease. she has been on warfarin but did not take it before this acute CVA, due to GERD and recent surgery. she was having 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 INR. she was on eliquis previously but was unable to take it further since she was unable to afford. However she is for [facility] facility and will be able to take her eliquis through the facility without paying from her pocket. Digital Imaging Technician was also taken advice about the case without official consult. she was started her on aspirin 81mg daily along with eliquis. low dose enteresto and jardiance was also started at discharge. metoprolol 50mg daily as inpatient was kept and her hemodynamics were monitored. she was kept on PPI and sucralfate to address her GERD. Cardiology and neurology fu provided at the time of discharge and MR brain to be done as outpatient. Echo was done LVEF 40% with segmental wall motion abnormalities and the echo reported more or less the same findings in the pervious studies. at the time of discharge. medications were adjusted and reconciled as per her comorbidities. appropriate follow up and referrals were provided. Patient condition has been discussed at length with the patient/family, I have independently reviewed the chart labs imaging/diagnostics/EKG. the goals of care and code status with the patient/family/NOK/legal auto service representative, and documented accordingly. The management has been done according to the current clinical condition with respect to patient goals of care and based on recommendations/guidelines. The patient/family has been informed about the current condition and further plan of care. Agreed with the plan of care and understood without any language barrier. 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 Any obvious errors or omissions should be clarified with the author of the document. Physical Exam Narrative: General: Alert and oriented, lying comfortably without any distress HEENT: Normocephalic, atraumatic, grossly unremarkable exam Cardio: normal rate rhythm, normal S1-S2 without any murmurs, rubs, or gallops and JVD normal Respiratory: normal vascular breathing on auscultation without any wheezes, stridor, rhonchi GI: Abdomen soft, nontender, nondistended, normoactive bowel sounds present all 4 quadrants, Neuro: intact cranial nerves motor and sensory and cerebellar/coordination function without any focal neurological deficit at the moment, past pointing and dysdiadokokensia was absent, normal heel to tyler test. Behavior: Appropriate and cooperative Extremities: Adequate palpable pulses, mild trace edema Discharge Data Studies Completed and Pending Completed Studies During Hospitalization Category Date Time Status CT angio headneck* [id number] Stat Cat Scan 10/02/25 13:[address] head thrombolytic [id number] Stat Cat Scan 10/02/25 13:34 Completed CXRP [XR chest 1V portable [id number]] Stat Exams 10/02/25 14:10 Completed CV. echo complete* [id number] Routine Ultrasound 10/03/25 17:31 Completed Pending at discharge Category Date Time Status Prothrombin Time INR DAILY Lab 10/05/25 10:00 Ordered Radiology Impressions Head CT 10/02/25 13:34 IMPRESSION: 1. Age appropriate supratentorial and infratentorial atrophy. 2. Moderate chronic white matter microvascular ischemic disease. 3. No acute intracranial abnormality identified. ASSESSMENT: ASPECTS ([place] Stroke Program Early CT Score) is 10. ADDENDUM: 10/02/25 [id number] THIS REPORT CONTAINS FINDINGS THAT MAY BE CRITICAL TO PATIENT CARE. The findings were verbally communicated by me to DR. MELVI FRIEND via telephone conference at 1:58 PM MOTOR RACER on 10/02/2025. The findings were acknowledged and understood. Head/Neck CTA 10/02/25 13:34 IMPRESSION: 1. Moderate stenosis left internal carotid artery cavernous segment. 2. No acute intracranial vascular abnormality identified. IMPRESSION: 1. Moderate-severe stenosis left vertebral artery origin. 2. Moderate right common carotid artery bifurcation stenosis. 3. Severe proximal right subclavian artery stenosis. Recommend clinical assessment for vertebral artery steal syndrome. 4. No acute extracranial vascular abnormality identified. REFERENCES: NASCET CRITERIA. The degree of stenosis in the cervical segment of the internal carotid artery is based on NASCET criteria. Normal is no stenosis. Mild is less than 50% stenosis. Moderate is 50-69% stenosis. Severe is 70% to 99% stenosis. Total occlusion is no detectable patent lumen. Chest X-Ray 10/02/25 14:10 IMPRESSION: 1. Mild pulmonary hypoexpansion. 2. Mild pulmonary vascular congestion. Laboratory Results WBC 10.06 10^3/uL (3.29-11.43) 10/04/25 03:37 RBC 3.85 10^6/uL (3.85-5.65) 10/04/25 03:37 Hgb 11.40 g/dL (11.27-16.99) 10/04/25 03:37 Hct 35.5 % (36-47) L 10/04/25 03:37 MCV 92.2 fl (85-98) 10/04/25 03:37 MCH 29.6 pg (27-33) 10/04/25 03:37 MCHC 32.1 g/dL (30-55) 10/04/25 03:37 RDW 13.2 % (12.1-15.1) 10/04/25 03:37 Plt Count 286 10^3/cmm (157-399) 10/04/25 03:37 MPV 9.7 fL (7.4-10.4) 10/04/25 03:37 Neut % (Auto) 69.3 % 10/04/25 03:37 Lymph % (Auto) 10.9 % 10/04/25 03:37 [place] % (Auto) 15.1 % 10/04/25 03:37 Eos % (Auto) 2.4 % 10/04/25 03:37 Baso % (Auto) 0.8 % 10/04/25 03:37 Neut # (Auto) 6.97 10^3/uL (1.8-7.7) 10/04/25 03:37 Lymph # (Auto) 1.1 10^3/uL (0.8-4.8) 10/04/25 03:37 [place] # (Auto) 1.5 10^3/uL (0.2-0.9) H 10/04/25 03:37 Eos # (Auto) 0.2 10^3/uL (0.0-0.8) 10/04/25 03:37 Baso # (Auto) 0.1 10^3/uL (0.0-0.1) 10/04/25 03:37 Nucleated RBC % (auto) 0 % 10/04/25 03:37 Nucleated RBCs # 0.0 /100WBC 10/04/25 03:37 PT 18.10 SECONDS (12.1-14.9) H 10/04/25 09:14 INR 1.40 (0.8-1.2) H 10/04/25 09:14 APTT 21.7 SECONDS (23.9-36.7) L 10/02/25 13:21 Sodium 134 mmol/L (136-145) L 10/04/25 03:37 Potassium 3.6 mmol/L (3.5-5.1) 10/04/25 03:37 Chloride 92 mmol/L (98-107) L 10/04/25 03:37 Carbon Dioxide 31 mmol/L (22-29) H 10/04/25 03:37 Anion Gap 14.6 (5-19) 10/04/25 03:37 BUN 31 mg/dL (8-23) H 10/04/25 03:37 Creatinine 1.0 mg/dL (0.5-0.9) H 10/04/25 03:37 GFR Calculation Not Reportable 10/04/25 03:37 Glucose 114 mg/dL (65-115) 10/04/25 03:37 POC Glucose 152 mg/dL (70-110) H 10/04/25 11:36 Estimat Average Glucose 151 10/03/25 05:12 Hemoglobin A1c 6.9 % (4.0-6.0) H 10/03/25 05:12 Calculated Osmolality 285 mOsm/kg (285-295) 10/04/25 03:37 Calcium 8.7 mg/dL (8.5-10.5) 10/04/25 03:37 Total Bilirubin 0.7 mg/dL (0.15-1.2) 10/04/25 03:37 AST 22 U/L (0-32) 10/04/25 03:37 ALT 9 U/L (0-33) 10/04/25 03:37 Alkaline Phosphatase 103 U/L (35-105) 10/04/25 03:37 NT-Pro-B Natriuret Pep 7477 pg/mL (0-450) H 10/02/25 13:21 Total Protein 6.4 g/dL (6.6-8.7) L 10/04/25 03:37 Albumin 3.6 g/dL (3.5-5.2) 10/04/25 03:37 Globulin 2.8 g/dL (1.3-4.6) 10/04/25 03:37 Triglycerides 94 mg/dL (0-150) 10/03/25 05:12 Cholesterol 142 mg/dL (0-200) 10/03/25 05:12 LDL Cholesterol, Calc 89 mg/dL (50-129) 10/03/25 05:12 HDL Cholesterol 34 mg/dL (60-100) L 10/03/25 05:12 LDL/HDL Ratio 2.62 RATIO (0.00-3.22) 10/03/25 05:12 Cholesterol/HDL Ratio 4.18 mg/dL (0.0-4.40) 10/03/25 05:12 Urine Color Yellow (Yellow) 10/02/25 14:08 Urine Appearance Clear (CLEAR) 10/02/25 14:08 Urine pH 5.5 (5-7) 10/02/25 14:08 Ur Specific [place] 1.012 (1.005-1.030) 10/02/25 14:08 Urine Protein Negative (Negative) 10/02/25 14:08 Urine Glucose (UA) Negative (Normal) 10/02/25 14:08 Urine Ketones Negative (Negative) 10/02/25 14:08 Urine Blood Negative (Negative) 10/02/25 14:08 Urine Nitrate Negative (Negative) 10/02/25 14:08 Urine Bilirubin Negative (Negative) 10/02/25 14:08 Urine Urobilinogen 0.2 mg/dL (Negative) 10/02/25 14:08 Ur Leukocyte Esterase Negative (Negative) 10/02/25 14:08 Urine RBC 0-2 /hpf (0-2) 10/02/25 14:08 Urine WBC 0-5 /hpf (0-5) 10/02/25 14:08 Ur Squamous Epith Cells 0-5 /hpf (0-5) 10/02/25 14:08 Amorphous Sediment Not Reportable 10/02/25 14:08 Urine Bacteria None seen /hpf (NONE) 10/02/25 14:08 Hyaline Casts 1.65 /lpf 10/02/25 14:08 Urine Opiates Screen Positive ng/mL (Negative) H 10/02/25 14:08 Ur Barbiturates Screen Negative ng/mL (Negative) 10/02/25 14:08 Ur Phencyclidine Scrn Negative ng/mL (Negative) 10/02/25 14:08 Ur Amphetamines Screen Negative ng/mL (Negative) 10/02/25 14:08 U Benzodiazepines Scrn Negative ng/mL (Negative) 10/02/25 14:08 Urine Cocaine Screen Negative ng/mL (Negative) 10/02/25 14:08 U Marijuana (THC) Screen Negative ng/mL (Negative) 10/02/25 14:08 Vitals Last Vital Signs Temp 98.1 F 10/04/25 11:34 Pulse 98 10/04/25 11:34 Resp 16 10/04/25 11:34 BP 108/67 10/04/25 11:34 Pulse Ox 98 10/04/25 11:34 O2 Del Method Room Air 10/04/25 11:34 Discharge Plan Discharge Patient Disposition: Home Condition: Stable Prescriptions: New Eliquis 5 mg tablet 5 mg PO BID Qty: 90 1RF atorvastatin 40 mg Tablet 40 mg PO BEDTIME 90 Days Qty: 90 0RF sucralfate 1 gram Tablet 1 g PO BIDAC 90 Days Qty: 90 0RF aspirin 81 mg Tablet,Delayed Release (Dr/Ec) 81 mg PO DAILY 90 Days Qty: 90 0RF alum-mag hydroxide-simeth [Mag-Al Plus] 200-200-20 mg/5 mL Suspension 30 ml PO Q4H PRN (Reason: Indigestion) 90 Days Qty: 3000 1RF sacubitril-valsartan [Entresto] 24-26 mg Tablet 1 tab PO BID 90 Days Qty: 180 0RF Jardiance 10 mg tablet 10 mg PO DAILY Qty: 90 0RF pantoprazole 40 mg tablet,delayed release (DR/EC) 40 mg PO DAILY Qty: 90 0RF metoprolol succinate 50 mg Tablet Extended Release 24 Hr 75 mg PO DAILY 90 Days Qty: 9 0RF Continued metolazone 5 mg tablet 5 mg PO .COMPLEX Qty: 20 5RF Rx Instructions: Take 1 tablet by mouth on Mondays , Wednesdays, and Fridays . furosemide 40 mg tablet See Rx Instructions .ROUTE .COMPLEX Qty: 180 8RF Dose Instruction: TAKE 1 TABLET BY MOUTH TWICE A DAY FOR EDEMA Rx Instructions: TAKE 1 TABLET BY MOUTH TWICE A DAY FOR EDEMA diltiazem HCl 60 mg tablet See Rx Instructions .ROUTE .COMPLEX Qty: 270 3RF Dose Instruction: TAKE 1 TABLET BY MOUTH THREE TIMES A DAY FOR 30 DAYS Rx Instructions: TAKE 1 TABLET BY MOUTH THREE TIMES A DAY FOR 30 DAYS potassium chloride 10 mEq tablet extended release See Rx Instructions .ROUTE .COMPLEX Qty: 180 2RF Dose Instruction: TAKE 1 TABLET BY MOUTH TWICE A DAY Rx Instructions: TAKE 1 TABLET BY MOUTH TWICE A DAY hydrocodone-acetaminophen 5-325 mg Tablet 1 tab PO Q6H PRN (Reason: Moderate To Severe Pain) Qty: 30 0RF Discontinued metoprolol succinate 100 mg tablet extended release 24 hr See Rx Instructions .ROUTE .COMPLEX Qty: 180 3RF Dose Instruction: TAKE 1 TABLET BY MOUTH TWICE A DAY Rx Instructions: TAKE 1 TABLET BY MOUTH TWICE A DAY benazepril 10 mg tablet See Rx Instructions .ROUTE .COMPLEX Qty: 180 3RF Dose Instruction: TAKE 1 TABLET BY MOUTH TWICE A DAY Rx Instructions: TAKE 1 TABLET BY MOUTH TWICE A DAY atorvastatin 20 mg tablet See Rx Instructions .ROUTE .COMPLEX Qty: 90 3RF Dose Instruction: TAKE 1 TABLET BY MOUTH EVERY DAY Rx Instructions: TAKE 1 TABLET BY MOUTH EVERY DAY warfarin 2 mg tablet See Rx Instructions .ROUTE .COMPLEX Qty: 180 3RF Dose Instruction: TAKE 1 TABLET BY MOUTH TWICE A DAY Rx Instructions: TAKE 1 TABLET BY MOUTH TWICE A DAY Front Attendant OK for DC: Cardiology and Neurology Discharge Order = DC NOW: Discharge Order (Routine); Ordered 10/04/25 Ordered By: Arthur Monteiro Other Ambulatory Orders: MR michelet rodriguez con* [id number] (Routine) Timeframe: 3 Days Facility: [facility] - Location: Radiology Ordered By: Maribel Jamison Referrals: Tracey Marques MD [Physician, Neurology] - 7-10 days Referral Note: post discharge stroke followup and for MRI follow up We have notified your physician's clinic of the need for a follow-up appointment to be scheduled. If you have not heard from them within the next 2 business days, please call them directly. Isauro Gaytan M.D [Physician, Cardiology] - 2 weeks Referral Note: HFrEF and at fib with h/o stroke, for GDMT and outpatient follow up We have notified your physician's clinic of the need for a follow-up appointment to be scheduled. If you have not heard from them within the next 2 business days, please call them directly. Francesco Parr MD [Primary Care Provider, Family Practice] - 10/10/25 7:20 am Discharge Diet: Advance as tolerated, Cardiac and Diabetic Discharge Activity: Resume usual activity, Increase activity as tolerated and Limit activity as instructed Patient Instructions: Opioid Safety, Patient Portal & William Instructions Discharge Attestations Time Spent in Discharge Care*: greater than 30 min Specific Discharge Activities: educating patient, educating and/or supporting family/caregiver, discussing with pcp/other providers, discussing with rifle case repairer/social workers/dc planners, documenting/other paperwork and evaluating patient/reviewing data Status at Discharge: Cognitive status at discharge: cognitively intact, Behavioral status at discharge: cooperative, Functional status at discharge: independent ambulation, Overall status at discharge: patient is progressing back to baseline Quality Metrics Clinical Quality Measures [ Cerebrovascular Accident { Contraindication to Antithrombotic: Medical contraindication; Contraindication to Anticoagulation: None; anticoagulation prescribed; Contraindication to Statin: None; Statin prescribed; Contraindication to antithrombotic day 2: Medical contraindication; Contraindication to tPA: Treatment not indicated; Rehab services assessed: Activities of daily living assessment, Rehabilitation assessment, Physical therapy, Occupational therapy, Speech therapy, Stroke rehabilitation, Other;}] Coding Level of Care Code 84665 Diagnoses Cerebrovascular accident I63.9 Chronic atrial fibrillation, unspecified I48.20 Heart failure with reduced ejection fraction I50.20 Leukocytosis D72.829 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, without long-term current use of insulin E11.9 Vascular disease I99.9 Intertrochanteric fracture of right hip S72.144A Encounter type: initial encounter Fracture alignment: nondisplaced Fracture type: closed
== END 2025-10-04 14:00 | disposition skilled nursing facility (03) | DRG 65 ==
LOC: ER 15:57 → MEDSURG 16:23
PROVIDERS: Nurse Practitioner Gerontology; Admitting Provider Internal Medicine; Emergency Provider Emergency Medicine; PCP Family Medicine; Visit Provider Student in an Organized Health Care Education/Training Program
DX: I63.9 Cerebral infarction, unspecified (principal); I48.20 Chronic atrial fibrillation, unspecified; I50.20 Unspecified systolic (congestive) heart failure; K55.1 Chronic vascular disorders of intestine; R47.01 Aphasia; E11.9 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 without complications; S72.141D Displaced intertrochanteric fracture of right femur, subsequent encounter for closed fracture with routine healing; W01.0XXD Fall on same level from slipping, tripping and stumbling without subsequent striking against object, subsequent encounter; K21.9 Gastro-esophageal reflux disease without esophagitis; I70.8 Atherosclerosis of other arteries; I65.02 Occlusion and stenosis of left vertebral artery; I65.21 Occlusion and stenosis of right carotid artery; D72.829 Elevated white blood cell count, unspecified; Z79.01 Long term (current) use of anticoagulants; Z79.82 Long term (current) use of aspirin; Z87.440 Personal history of urinary (tract) infections
CPT/HCPCS: 36415; 36416; 70450; 70496; 70498; 71045; 80053; 80061; 80306; 81001; 82962; 83036; 83880; 85025; 85610; 85730; 92507; 92523; 92610; 93005; 93306; 96372; 97165; 99285; G0378; J1815; J2470; J7050; J9999

== ENCOUNTER → 2025-10-10 13:37 | Outpatient (BNVA) | payer MEDICARE, OTHER, SELFPAY | PROVIDERS: PCP Family Medicine; Visit Provider Orthopaedic Surgery | DX: Z98.890 Other specified postprocedural states (principal) | CPT/HCPCS: 73502; 99024 ==

== ENCOUNTER → 2025-11-05 13:34 | Outpatient (BNVA) | payer MEDICARE, OTHER, SELFPAY | PROVIDERS: PCP Family Medicine; Visit Provider Orthopaedic Surgery | DX: Z98.890 Other specified postprocedural states (principal) | CPT/HCPCS: 73502; 99024 ==